=== PATIENT | male | born 1975 | race American Indian/Alaskan Native ===

== ENCOUNTER 2017-02-02 15:13 | Emergency (ER) | payer MEDICAID ==
[2017-02-02 15:18] VITALS: TEMP 98; O2SAT 98; BMI 27.4
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
[2017-02-02 16:52] VITALS: BP 154/102; PULSE 79; RESP 18
== END 2017-02-02 18:20 | disposition home or self-care (01) ==
LOC: ED 15:13
DX: Z76.0 Encounter for issue of repeat prescription (principal); I10 Essential (primary) hypertension; G40.909 Epilepsy, unspecified, not intractable, without status epilepticus; Z72.0 Tobacco use

== ENCOUNTER 2017-04-01 08:06 | Inpatient (IN) | payer MEDICAID ==
[2017-04-01 08:07] VITALS: BMI 27.4
[2017-04-01 08:30] VITALS: O2SAT 98
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
--- NOTE | 2017-04-01 10:53 | PCM.BM ---
<Raphael Márquez - Last Filed: 04/01/17 10:54> Treatment Plan Problems - Problems identified on initial assessmt thought process alteration Date Initiated: 04/01/17 Time Initiated: 10:50 Assessment reference: NA Status: Active meds nonadherence Date Initiated: 04/01/17 Time Initiated: 10:51 Assessment reference: NA Status: Active suicidal ideation Date Initiated: 04/01/17 Time Initiated: 10:52 Assessment reference: NA Status: Active Treatment assets and liabiliti Patient Assests: adapts well, self-reliant, negotiates basic needs, other Patient Liabilities: live alone, poor support system, relationship conflicts, substance abuse, medical problems, imparied memory - Milieu Protocol Maintain good personal hygiene: daily Encourage regular showers, daily Remind patient to perform daily oral care, daily Assist patient to perform ADL's Maintain personal safety: daily Educate patient to report safety concerns to staff, daily Monitor environment for contraband/sharps Medication safety: Monitor for expected outcome, potential side effects: daily, Assess barriers to learning: daily, Assess readiness for medication education: daily Discharge/Continuing Care - Education Needs Education Needs: Family Medication, Family Diagnosis/Disease Process, Family Coping Skills, Family Anger Management skills, Family Placement options, Family Activities of Daily Living, Family Uses of Medical Equipment, Family Health Practices/Safety, Family Personal Hygiene/Grooming, Family Aftercare Safety Plan - Discharge Discharge Criteria: Free of Suicidal thoughts, Free of Homicidal thoughts, Free of agitation, Normal sleep pattern, Ability to care for self, No longer exhibiting s/s of withdrawal Discharge to:: Home <Melissa Rodriguez - Last Filed: 04/01/17 15:04> - Diagnosis (1) TBI (traumatic brain injury) Status: Acute Interventions: 04/01/17 15:05 Pt will be seen by medical team as needed Medications will be confirmed and resumed Additional consultation by specialists as needed Lab work as needed (CBC, CMP, TSH, free T4, UA, Urine test for females as needed) CXR as needed EKG Physical therapy valuation as needed (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 Status: Acute Interventions: 04/01/17 15:06 Psychoeducation Psychopharmacology/adjustment of medications as needed/ monitoring possible side effects Evaluate pt on daily basis Compliance with medications and follow up appointments Suicide and homicide risk assessment and prevention Relapse prevention Reduction of symptoms Improve functional status Family intervention As outpatient: cognitive behavioral therapy/interpersonal psychotherapy/ psychodynamic psychotherapy/problem-solving therapy (3) Schizoaffective disorder Status: Acute Interventions: 04/01/17 15:06 Psychoeducation/psychotherapy Psychopharmacology/adjustment of medications as needed/ monitoring possible side effects Evaluate pt on daily basis Compliance with medications and follow up appointments Long acting medication if pt is noncompliant with pill form Suicide and homicide risk assessment and prevention, coping strategies, safety plan Relapse prevention Reduction of symptoms Improve functional status Possible assertive community treatment Cognitive behavioral therapy Family intervention Possible social skill training as outpatient <Adrianne Alston Y - Last Filed: 04/01/17 17:35> Family Contact Family involvement: Family/SO is involved - Goals for Treatment Patient goals for treatment: "I don't know, I just got here!" Discharge/Continuing Care - Education Needs Education Needs: Patient Medication, Patient Diagnosis/Disease Process, Patient Coping Skills, Patient Anger Management skills, Patient Placement options, Patient Community resources, Patient Health Practices/Safety, Patient Personal Hygiene/Grooming, Patient Aftercare Safety Plan - Discharge Discharge Criteria: Tolerates medication w/o severe side effects, Free of Suicidal thoughts, Free of paranoid thoughts, Free of agitation, Normal sleep pattern, No longer exhibiting s/s of withdrawal Discharge to:: [facility]
[2017-04-01 11:44] LABS: BASO # 0.01 K/mm3 (0.0-2.0); BASO % 0.3 % (0.0-3.0); EOS # 0.4 (0.0-0.7); EOS % 11.2 % (1.5-5.0); GRAN # 1.85 (1.4-6.5); GRAN % 48.3 % (50.0-68.0); HEMOGLOBIN 12.4 gm/dL (14.0-18.0); LYMPH # 1.1 (1.2-3.4); MEAN CORPUSCULAR HEMOGLOBIN 28.8 pg (25.0-35.0); MEAN CORPUSCULAR HGB CONC 33.2 g/dl (31.0-37.0); MONO # 0.4 (0.1-0.6); MONO % 11.2 % (1.0-6.0); PLATELET COUNT 187 10^3/uL (120.0-450.0); RED CELL DISTRIBUTION WIDTH 12.8 % (11.5-14.5); WHITE BLOOD COUNT 3.8 10^3/ul (4.5-11.0)
[2017-04-01 11:54] LABS: ALB/GLOB RATIO 1.2 (1.1-1.8); ALT/SGPT 30 U/L (7-56); AST/SGOT 23 U/L (15-59); BLOOD UREA NITROGEN 8 mg/dL (7-21); GFR AFRICAN-AMERICAN > 60; GFR NON-AFRICAN AMERICAN > 60; HDL CHOLESTEROL 71 mg/dL (29-60)
[2017-04-01 12:05] LABS: LDL CHOLESTEROL 84 mg/dL (0-129)
[2017-04-01 12:10] LABS: FREE T4 1.16 ng/dL (0.78-2.19)
--- NOTE | 2017-04-01 16:04 | PCM.PSYCH ---
Initial Psychiatric Evaluation - Initial Psychiatric Evaluation Type of Admission: Voluntary Legal Status: Capacity (Patient has capacity to sign consent for treatment) Chief Complaint (in patient's own words): "hat do you mean how do I feel? I just came here, I just need to have a good night sleep, I don't feel good, he just woke me up" Patient's Reaction to Hospitalization: patient was admitted for evaluation of depressive symptoms, possible suicidal ideations, with a plan to cut himself History of Present Illness and Precipitating Events: shortly patient is a 41 year old male, with history of schizophrenia spectrum disorder, dramatic brain injury, polysubstance abuse and dependence, chronic noncompliance with the medications and follow-up appointments, patient is currently homeless, was transferred from the crisis hospital for evaluation and stabilization of depressive symptoms, suicidal ideation with a plan to cut himself. Patient has poor impulse control, multiple emergency room and inpatient psychiatric as well as detox units admission in the past. This commercial loan underwriter attempted to speak to the patient at the treatment team room, patient presented to have marginal personal hygiene, fare ADLs, angry and loud, flat affect, patient has cognitive limitations due to dramatic brain injury, there is no option to have meaningful conversation. Patient had severe thought blocking, concrete thought process, as well as poverty of speech and poverty of thoughts, poor impulse control. when this commercial loan underwriter asked what brought pt to the hospital pt said: "Peng?", when was asked how does he feel: pt said: "hat do you mean how do I feel? I just came here, I just need to have a good night sleep, I don't feel good, he just woke me up", pt is disorganized and internally preoccupied throughout the interview. He remained a poor historian. He was superficially cooperative but guarded about the details. as per [facility] assessment: 04/01/17: "feel like cutting again." "feels depressed," and "I wouldn't have come here if I didnt need it, I need to see the psychiatrist." Pt reports drinking 1 beer earlier, denies drinking daily and using 1 bag of heroin intranasally [employer]OL[employer] OPER[employer]. When asked if using daily, pt states "absolutely not, then I'd be a problem!" collaterals from [facility] Call made to pt's mother who is listed as his emergency contact, pt mother lives in [place] and states "there's not much I would be able to tell you that he hasn't." Nakia states that pt has a TBI, and is sometimes forgetful , and goes through bouts of depression. She states her son is "living a hard life, and doing drugs sometimes and such, so he probably is depressed and needs to get some help to get his head straight." Nakia states she is unsure if pt is currently linked with psychiatric care in [place], and is unable to provide the cousin's name/phone number who pt claims to live with. When asked about history of suicide attempts, she states "look at his arms, you can see there's cuts all over." Pt mother unable to provide additoinal information on her son, but states if any PES worker needs to contact her for anything else, they are welcome to do so. pt was not able to answer if he hears voices or seeing things, but appeared to be internally preoccupied. pt has h/o command type hallucinations as per [facility] pt was admitted to [facility] less than a month go with the plan to go to [place], pt started to scream when was asked about it. pt was discharged on the following meds: amLODIPine [Norvasc] 5 mg PO DAILY Benztropine [Cogentin] 1 mg PO BID carBAMazepine [Tegretol] 400 mg PO Q12 fluPHENAZine [Prolixin] 10 mg PO BID Furosemide [Lasix] 20 mg PO DAILY Lisinopril [Zestril] 20 mg PO DAILY Phenobarbital [PHENobarbital Tab] 64.8 mg PO BID Sertraline [Zoloft] 50 mg PO DAILY traZODone [Desyrel] [facility] PO [facility] History of seizures, HTN patient denied smoking, 04/01/17 11:30 04/01/17 11:30 Lab Results 04/01/17 11:30: Free T4 1.16, TSH 3rd Generation 0.43 L 04/01/17 11:30: Sodium 142, Potassium 4.2, Chloride 105, Carbon Dioxide 26, Anion Gap 15, BUN 8, Creatinine 0.9, Est GFR ( Amer) > 60, Est GFR (Non- Af Amer) > 60, Random Glucose 94, Calcium 9.0, Total Bilirubin 0.4, AST 23, ALT 30, Alkaline Phosphatase 116, Total Protein 7.2, Albumin 4.0, Globulin 3.3, Albumin/Globulin Ratio 1.2, Triglycerides 86, Cholesterol 169, LDL Cholesterol Direct 84, HDL Cholesterol 71 H 04/01/17 11:30: WBC 3.8 L D, RBC 4.30, Hgb 12.4 L, Hct 37.4 L, MCV 87.0, MCH 28.8, MCHC 33.2, RDW 12.8, Plt Count 187, MPV 11.0, Gran % 48.3 L, Lymph % (Auto ) 29.0, [place] % (Auto) 11.2 H, Eos % (Auto) 11.2 H, Baso % (Auto) 0.3, Gran # 1.85, Lymph # 1.1 L, [place] # 0.4, Eos # 0.4, Baso # 0.01 Vital Signs Temp Pulse Resp BP Pulse Ox 04/01/17 11:30 146/105 H 04/01/17 10:22 16 04/01/17 08:28 97.7 F 55 L 15 148/98 H 98 UDS positive for opioids and barbiturates 04/01/17 [facility] Current Medications: confirmed by [facility] Past Psychiatric History - Past Psychiatric History Previous Treatment History: Inpatient Prior Professional Help: see HPI Prior Psychiatric Treatment: see HPI At what hospital: see HPI Duration: see HPI Nature of Treatment: see HPI Explanation of prior treatment: see HPI History of Abuse: see HPI History of ETOH/Drug Use: see HPI History of Family Illness: see HPI Pertinent Medical Hx (Current Medical&Sleep Prob, Allergies): Allergies Allergy/AdvReac Type Severity Reaction Status Date / Time haloperidol [From Haldol] AdvReac NAUSEA Verified 04/01/17 09:29 Unobtainable 04/01/17 Review of Systems - Review of Systems Systems not reviewed;Unavailable: Acuity of Condition - EENT Eyes: As Per HPI Ears: As Per HPI Nose/Mouth/Throat: As Per HPI - Cardiovascular Cardiovascular: As Per HPI - Respiratory Respiratory: As Per HPI - Gastrointestinal Gastrointestinal: As Per HPI - Genitourinary Genitourinary: As Per HPI - Reproductive: Male Reproductive:Male: As Per HPI - Musculoskeletal Musculoskeletal: As Par HPI - Integumentary Integumentary: As Per HPI - Neurological Neurological: As Per HPI - Psychiatric Psychiatric: As Per HPI - Endocrine Endocrine: As Per HPI - Hematologic/Lymphatic Hematologic: As Per HPI Mental Status Examination - Personal Presentation Personal Presentation: Looks older than stated age - Affect Affect: Flat - Motor Activity Motor Activity: Psychomotor Agitation, Psychomotor Retardation - Reliability in Providing Information Reliability in Providing Information: Poor, due to alteration in thoughts, Poor , due to cognitve impairment - Speech Speech: Disorganized, Other (poverty of speech) - Mood Mood: Depressed - Formal Thought Process Formal Thought Process: Hallucinations, Delusions, Paranoia - Hallucinations/Delusions Hallucinations: Auditory Delusions: Persecution - Obsessions/Compulsions Obsessions: None Compulsions: None - Cognitive Functions Orientation: Person Sensorium: Alert Attention/Concentration: Easily distracted Abstract Thinking: [place] Estimate of Intelligence: Below average Judgement: Intact, as evidence by: Insight regarding need for hospitalization - Risk Risk: Self-mutilation, Diminished functioning - Strength & Assets Inventory Strength & Assets Inventory: Cooperative - Limitations Limitations: Other (multiple medical issues, chronic noncompliance with meds and f/u appt) DSM 5 DX - DSM 5 DSM 5 Diagnosis: Schizoaffective disorder mixed type Opioid use disorder moderate TBI - Recommended/Plan of Treatment Treatment Recommendations and Plan of Treatment: milieu, structure, supportive therapy As per previous record patient supposed to be on the following medication: amLODIPine [Norvasc] 5 mg PO DAILY will be continued Benztropine [Cogentin] 1 mg PO BID will be continued carBAMazepine [Tegretol] 400 mg PO Q12 will be continued fluPHENAZine [Prolixin] 10 mg PO BID will be continued Furosemide [Lasix] 20 mg PO DAILY will be continued Lisinopril [Zestril] 20 mg PO DAILY will be continued Phenobarbital [PHENobarbital Tab] 64.8 mg PO BID will be continued Sertraline [Zoloft] 50 mg PO DAILY will be continued traZODone [Desyrel] 50 mg PO HS will be continued we'll give when necessary medications Medical consultation We'll consider neurology consult We'll monitor closely sw evaluation Projected ELOS: 7 days Prognosis: guarded Discharge Plan and Discharge Criteria: Pt will be not depressed or manic, will be more hopeful, will be not psychotic or anxious, will be not having thoughts of harming self or others, will be tolerating medications well, will not have major side effects, will be able to function, will not pose threat to self or others. - Smoking Cessation Smoking Cessation Initiated: No Reason for not providing: patient denied smoking
[2017-04-02 07:51] VITALS: RESP 20; TEMP 97.9
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
--- NOTE | 2017-04-02 09:12 | PCM.PYCHPN ---
Psychiatric Progress Note - Psychiatric Progress Note Patient seen today, length of contact: 25 min Patient Chief Complaint: "feeling better" Problems Identified/Issues Discussed: I reviewed assessment and recent notes. I met with patient bedside. He is superficially cooperative however appears to be irritable and preoccupied. Patient reports that he is feeling better and he denies any depression or hallucinations. Reported that he slept well and denies any side effects discomfort or pain. His thought process is disorganized and forgetful. He can be repetitive with his questioning. Appears paranoid and unpredictable though he does not appear to be actively responding to internal stimuli. Staff notes indicate the patient has been confused, suspicious and irritable on the unit. His insight and judgment are poor. Diagnostic Results: Schizoaffective disorder mixed type Opioid use disorder moderate TBI Medication Change: No Medical Record Reviewed: Yes Mental Status Examination - Cognitive Function Orientation: Person Attention: Poor Concentration: Poor Association: Loose Fund of Knowledge: Poor - Mood Mood: Depressed ("feeling better") - Affect Affect: Flat - Formal Thought Process Formal Thought Process: Hallucinations, Delusions, Paranoia, Loosening of associations - Suicidal Ideation Suicidal Ideation: No - Homicidal Ideation Homicidal Ideation: No Goal/Treatment Plan - Goal/Treatment Plan Progress Toward Problem(s) and Goals/Treatment Plan: * c/w current tx and plan * Ordered tegretrol level * Patient put in a 48 hour letter this morning; I requested [facility] screening today * Appreciate f/u by Dr. Joshi on 04/02/17. * No new overnight labs * Vitals reviewed and noted below: Selected Entries 04/01/17 04/01/17 04/01/17 08:28 10:22 11:30 Temperature 97.7 F Pulse Rate 55 L Respiratory 15 16 Rate Blood Pressure 148/98 H 146/105 H O2 Sat by Pulse 98 Oximetry Oxygen Delivery Room Air Method
[2017-04-02 16:59] VITALS: BP 148/91; PULSE 81
[2017-04-03] MEDS ORDERED: Pantoprazole 40 mg EC Tab PO SCH (06:00)
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
== END 2017-04-02 20:37 | disposition left against medical advice (07) | DRG 430 ==
LOC: ED 08:06 → ERH 08:32 → PSYC 08:57
PROVIDERS: ADMIT Psychiatry & Neurology Psychiatry; ATTEND Psychiatry & Neurology Psychiatry
PROC: GZ3ZZZZ Medication Management (ICD-10-PCS; principal; 2017-04-01)
DX: F25.0 Schizoaffective disorder, bipolar type (principal); F11.20 Opioid dependence, uncomplicated; R45.851 Suicidal ideations; B19.20 Unspecified viral hepatitis C without hepatic coma; I10 Essential (primary) hypertension; G40.909 Epilepsy, unspecified, not intractable, without status epilepticus; F41.9 Anxiety disorder, unspecified; Z91.14 Patient's other noncompliance with medication regimen; Z87.820 Personal history of traumatic brain injury; Z59.0 Homelessness; Z87.891 Personal history of nicotine dependence

== ENCOUNTER 2017-04-05 20:48 | Inpatient (IN) | payer MEDICAID ==
[2017-04-05 20:57] VITALS: BMI 28.7
[2017-04-05] MEDS ORDERED: Sodium Chloride 0.9% 1,000 ML IV STA ×2 (21:39→23:36)
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
[2017-04-05 22:49] LABS: BASO # 0.02 K/mm3 (0.0-2.0); BASO % 0.2 % (0.0-3.0); EOS # 0.4 (0.0-0.7); EOS % 3.4 % (1.5-5.0); GRAN % 73.4 % (50.0-68.0); HEMOGLOBIN 11.5 g/dL (14.0-18.0); LYMPH # 1.6 (1.2-3.4); LYMPH % 15.1 % (22.0-35.0); MEAN CELL VOLUME 88.3 fl (80.0-105.0); MEAN CORPUSCULAR HEMOGLOBIN 29.8 pg (25.0-35.0); MEAN CORPUSCULAR HGB CONC 33.7 g/dl (31.0-37.0); MEAN PLATELET VOLUME 11.1 fl (7.0-11.0); MONO # 0.8 (0.1-0.6); MONO % 7.9 % (1.0-6.0); PLATELET COUNT 158 10^3/uL (120.0-450.0); RBC 3.86 10^6/uL (3.5-6.1); WHITE BLOOD COUNT 10.6 10^3/ul (4.5-11.0)
[2017-04-05 23:01] LABS: ALB/GLOB RATIO 1.4 (1.1-1.8); ALBUMIN 4.1 g/dL (3.0-4.8); ALT/SGPT 85 U/L (7-56); AST/SGOT 191 U/L (15-59); BLOOD UREA NITROGEN 13 mg/dL (7-21); CALCIUM 8.8 mg/dL (8.4-10.5); GFR AFRICAN-AMERICAN > 60; GFR NON-AFRICAN AMERICAN > 60
[2017-04-05 23:23] LABS: CK MB% 0.2 % (2.5-3.0); CK-MB 24.4 ng/mL (0.0-3.6)
--- NOTE | 2017-04-05 23:27 | ED PDOC ---
Physical Exam Vital Signs Temp Pulse Resp BP Pulse Ox 04/05/17 22:11 98.6 F 83 16 99/52 L 96 Temperature: Afebrile Blood Pressure: Hypotensive Pulse: Regular Respiratory Rate: Normal Appearance: Positive for: Well-Appearing, Non-Toxic, Comfortable Pain Distress: None Mental Status: Positive for: Alert and Oriented X 3 Medical Decision Making ED Course and Treatment: 04/05/17 23:00 Patient signed out to me by Dr. Mendez. Patient has a past medical history of Schizophrenia, who presents to the Emergency department complaining of substance abuse and depression. Patient requested psychiatric evaluation and admits to heroin drug use. Currently pending labs and sobriety. 04/06/17 00:30 Pt. will require admission for further medical management of Rhabdomyolysis. Case discussed with Dr. Thayer and medical research associate both to ED to evaluate/admit pt. - Lab Interpretations Lab Results: 04/05/17 22:30 04/05/17 22:30 Lab Results 04/05/17 22:30: Alcohol, Quantitative 27 H 04/05/17 22:30: Sodium 140, Potassium 4.1, Chloride 104, Carbon Dioxide 23, Anion Gap 17, BUN 13, Creatinine 0.9, Est GFR ( Amer) > 60, Est GFR (Non- Af Amer) > 60, Random Glucose 91, Calcium 8.8, Total Bilirubin 0.3, AST 191 H, ALT 85 H, Alkaline Phosphatase 99, Total Creatine Kinase 06351 H, CK-MB (CK-2) 24.4 H, CK-MB (CK-2) % 0.2 L, Total Protein 7.1, Albumin 4.1, Globulin 3.0, Albumin/Globulin Ratio 1.4 04/05/17 22:30: WBC 10.6 D, RBC 3.86, Hgb 11.5 L, Hct 34.1 L, MCV 88.3, MCH 29.8, MCHC 33.7, RDW 13.0, Plt Count 158, MPV 11.1 H, Gran % 73.4 H, Lymph % ( Auto) 15.1 L, Gilchrist % (Auto) 7.9 H, Eos % (Auto) 3.4, Baso % (Auto) 0.2, Gran # 7.80 H, Lymph # 1.6, Gilchrist # 0.8 H, Eos # 0.4, Baso # 0.02 04/05/17 21:12: POC Glucose (mg/dL) 64 L I have reviewed the lab results: Yes - RAD Interpretation Radiology Orders: 04/05/17 21:39 CHEST PORTABLE [RAD] Stat - Medication Orders Current Medication Orders: Sodium Chloride (Sodium Chloride 0.9%) 1,000 mls @ 999 mls/hr IV .Q1H1M STA Stop: 04/06/17 00:36 Discontinued Medications Dextrose (Dextrose 50% Inj) 50 ml IVP ONCE ONE Stop: 04/05/17 23:38 Last Admin: 04/06/17 00:05 Dose: 50 ml Sodium Chloride (Sodium Chloride 0.9%) 1,000 mls @ 999 mls/hr IV .Q1H1M STA Stop: 04/05/17 22:39 Last Admin: 04/06/17 00:01 Dose: 999 mls/hr - Scribe Statement The provider has reviewed the documentation as recorded by the Scribe 04/05/2017 Devika Alcaraz Provider Scribe Attestation: All medical record entries made by the Scribe were at my direction and personally dictated by me. I have reviewed the chart and agree that the record accurately reflects my personal performance of the history, physical exam, medical decision making, and the department course for this patient. I have also personally directed, reviewed, and agree with the discharge instructions and disposition. Disposition/Present on Arrival - Present on Arrival Any Indicators Present on Arrival: No History of DVT/PE: No History of Uncontrolled Diabetes: No Urinary Catheter: No History of Decub. Ulcer: No History Surgical Site Infection Following: None - Disposition Have Diagnosis and Disposition been Completed?: Yes Diagnosis: Substance abuse, Rhabdomyolysis Disposition: HOSPITALIZED Disposition Time: 00:21 Patient Plan: Admission Patient Problems: Current Active Problems Problem Status Onset Rhabdomyolysis Acute Substance abuse Acute Condition: FAIR
[2017-04-05] MEDS ORDERED: Dextrose 50% SYRINGE Inj (50 ml) IVP ONE (23:37)
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
[2017-04-06] MEDS ORDERED: Multivitamin (MVI) 10 ML, Thiamine 100 MG, Folic Acid 1 MG in Sodium Chloride 0.9% 1,00... IV ONE (01:38)
[2017-04-06] MEDS: Sodium Chloride 0.9% 1,000 ML IV SCH ×3 (02:14→22:41)
[2017-04-06 03:37] LABS: URINE BILIRUBIN NEGATIVE (NEGATIVE); URINE BLOOD TRACE-LYSED (NEGATIVE); URINE GLUCOSE (UA) 100 mg/dL (NEGATIVE); URINE LEUKOCYTE ESTERASE SMALL Leu/uL (NEGATIVE); URINE NITRATE NEGATIVE (NEGATIVE); URINE PROTEIN TRACE mg/dL (<30 mg/dL); URINE UROBILINOGEN 0.2 E.U./dL (<1 E.U./dL)
[2017-04-06 03:38] LABS: URINE APPEARANCE SL CLOUDY (CLEAR); URINE COLOR YELLOW (YELLOW)
[2017-04-06 03:58] LABS: BARBITURATES, UR POSITIVE (NEGATIVE); BENZODIAZEPINES, UR NEGATIVE (NEGATIVE); OPIATES, UR POSITIVE (NEGATIVE); PHENCYCLIDINE, UR NEGATIVE (NEGATIVE)
[2017-04-06 04:15] LABS: URINE BACTERIA FEW (NEG); URINE RBC 0 - 2 /hpf (0-2)
[2017-04-06 07:24] LABS: BLOOD UREA NITROGEN 9 mg/dL (7-21); GFR AFRICAN-AMERICAN > 60; GFR NON-AFRICAN AMERICAN > 60
[2017-04-06 07:25] LABS: CALCIUM 8.4 mg/dL (8.4-10.5); MAGNESIUM 1.7 mg/dL (1.7-2.2)
[2017-04-06 08:30] LABS: CK MB% 0.1 % (2.5-3.0); CK-MB 17.3 ng/mL (0.0-3.6)
--- NOTE | 2017-04-06 08:55 | RAD ---
HISTORY: psych COMPARISON: 12/24/2014 FINDINGS: LUNGS: No active pulmonary disease. PLEURA: No significant pleural effusion identified, no pneumothorax apparent. CARDIOVASCULAR: Normal. OSSEOUS STRUCTURES: No significant abnormalities. VISUALIZED UPPER ABDOMEN: Normal. OTHER FINDINGS: None. IMPRESSION: No active disease.
--- NOTE | 2017-04-06 09:56 | CP.PCM.PN ---
Subjective - Date & Time of Evaluation Date of Evaluation: 04/06/17 Time of Evaluation: 09:55 - Subjective Subjective: pt needs blood drawn. Objective - Vital Signs/Intake and Output Vital Signs (last 24 hours): Temp Pulse Resp BP Pulse Ox 98.6 F 76 18 130/83 100 04/05/17 22:11 04/06/17 09:40 04/06/17 09:40 04/06/17 09:40 04/06/17 09:40 - Medications Medications: Current Medications Clonidine HCl (Catapres) 0.1 mg PO BID PRN PRN Reason: Systolic Blood Pressure Sodium Chloride (Sodium Chloride 0.9%) 1,000 mls @ 200 mls/hr IV .Q5H JANINE Last Admin: 04/06/17 08:30 Dose: 200 mls/hr Lorazepam (Ativan) 1 mg IVP Q3H PRN; Protocol PRN Reason: Anxiety Last Admin: 04/06/17 07:19 Dose: 1 mg Pantoprazole Sodium (Protonix Inj) 40 mg IVP DAILY JANINE Last Admin: 04/06/17 09:26 Dose: 40 mg - Labs Labs: 04/06/17 06:50 Assessment and Plan - Assessment and Plan (Free Text) Assessment: blood drawn for labs from rt arterial.
[2017-04-06 10:03] LABS: BASO # 0.01 K/mm3 (0.0-2.0); BASO % 0.1 % (0.0-3.0); EOS # 0.5 (0.0-0.7); EOS % 5.7 % (1.5-5.0); GRAN # 6.08 (1.4-6.5); GRAN % 71.3 % (50.0-68.0); HEMOGLOBIN 11.4 g/dL (14.0-18.0); LYMPH # 1.4 (1.2-3.4); LYMPH % 16.8 % (22.0-35.0); MEAN CORPUSCULAR HEMOGLOBIN 29.1 pg (25.0-35.0); MEAN CORPUSCULAR HGB CONC 33.4 g/dl (31.0-37.0); MEAN PLATELET VOLUME 10.8 fl (7.0-11.0); MONO # 0.5 (0.1-0.6); MONO % 6.1 % (1.0-6.0); PLATELET COUNT 146 10^3/uL (120.0-450.0); RBC 3.92 10^6/uL (3.5-6.1); RED CELL DISTRIBUTION WIDTH 12.8 % (11.5-14.5); WHITE BLOOD COUNT 8.5 10^3/ul (4.5-11.0)
[2017-04-06] MEDS ORDERED: Pneumococcal 23-Valent Vaccine IM ONE (14:20)
[2017-04-06 16:53] VITALS: O2SAT 99
--- NOTE | 2017-04-06 18:11 | CP.PCM.PN ---
Subjective - Date & Time of Evaluation Date of Evaluation: 04/06/17 Time of Evaluation: 18:10 - Subjective Subjective: pt needs angiocath insertion. Objective - Vital Signs/Intake and Output Vital Signs (last 24 hours): Temp Pulse Resp BP Pulse Ox 97 F L 83 16 135/85 99 04/06/17 17:29 04/06/17 17:29 04/06/17 17:29 04/06/17 17:29 04/06/17 14:20 Intake and Output: 04/06/17 04/06/17 06:59 18:59 Intake Total 240 Output Total 550 Balance -310 - Medications Medications: Current Medications Carbamazepine (Tegretol) 400 mg PO BID JANINE PRN Reason: Protocol Chlordiazepoxide (Librium) 25 mg PO Q8 JANINE PRN Reason: Protocol Last Admin: 04/06/17 15:36 Dose: 25 mg Clonidine HCl (Catapres) 0.1 mg PO BID PRN PRN Reason: Systolic Blood Pressure Fluphenazine HCl (Prolixin) 10 mg PO BID JANINE PRN Reason: Protocol Sodium Chloride (Sodium Chloride 0.9%) 1,000 mls @ 200 mls/hr IV .Q5H JANINE Last Admin: 04/06/17 08:30 Dose: 200 mls/hr Ibuprofen (Motrin Tab) 600 mg PO Q6H PRN PRN Reason: Pain, Mild (1-3) Last Admin: 04/06/17 15:36 Dose: 600 mg Lisinopril (Zestril) 10 mg PO DAILY [facility] Lorazepam (Ativan) 1 mg IVP Q3H PRN; Protocol PRN Reason: Anxiety Last Admin: 04/06/17 07:19 Dose: 1 mg Pantoprazole Sodium (Protonix Inj) 40 mg IVP DAILY JANINE Last Admin: 04/06/17 09:26 Dose: 40 mg Phenobarbital (Phenobarbital Tab) 97.2 mg PO DAILY JANINE Trazodone HCl (Desyrel) 50 mg PO HS JANINE Ziprasidone (Geodon Inj) 20 mg IM Q8H PRN; Protocol PRN Reason: severe agitation - Labs Labs: 04/06/17 09:56 04/06/17 06:50 Assessment and Plan - Assessment and Plan (Free Text) Assessment: 20 guage angiocath inserted in rt ankle.
--- NOTE | 2017-04-07 01:06 | CARD ---
APPROVED REPORT EKG Measurement Heart [id number] <Conclusion> Normal sinus rhythm Nonspecific T wave abnormality Abnormal ECG
[2017-04-07 01:29] VITALS: BP 122/74; RESP 20; TEMP 97
[2017-04-07 02:29] VITALS: PULSE 62
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
--- NOTE | 2017-04-07 08:01 | CP.PCM.DIS ---
<Jessica Marquez - Last Filed: 04/07/17 16:39> Provider - Provider Date of Admission: 04/06/17 00:21 Attending physician: Hayes Mendoza MD Consults: Psychiatry Time Spent in preparation of Discharge (in minutes): 30 Hospital Course - Lab Results Lab Results: Most Recent Lab Values WBC 8.5 10^3/ul (4.5-11.0) 04/06/17 09:56 RBC 3.92 10^6/uL (3.5-6.1) 04/06/17 09:56 Hgb 11.4 g/dL (14.0-18.0) L 04/06/17 09:56 Hct 34.1 % (42.0-52.0) L 04/06/17 09:56 MCV 87.0 fl (80.0-105.0) 04/06/17 09:56 MCH 29.1 pg (25.0-35.0) 04/06/17 09:56 MCHC 33.4 g/dl (31.0-37.0) 04/06/17 09:56 RDW 12.8 % (11.5-14.5) 04/06/17 09:56 Plt Count 146 10^3/uL (120.0-450.0) 04/06/17 09:56 MPV 10.8 fl (7.0-11.0) 04/06/17 09:56 Gran % 71.3 % (50.0-68.0) H 04/06/17 09:56 Lymph % (Auto) 16.8 % (22.0-35.0) L 04/06/17 09:56 [place] % (Auto) 6.1 % (1.0-6.0) H 04/06/17 09:56 Eos % (Auto) 5.7 % (1.5-5.0) H 04/06/17 09:56 Baso % (Auto) 0.1 % (0.0-3.0) 04/06/17 09:56 Gran # 6.08 (1.4-6.5) 04/06/17 09:56 Lymph # 1.4 (1.2-3.4) 04/06/17 09:56 [place] # 0.5 (0.1-0.6) 04/06/17 09:56 Eos # 0.5 (0.0-0.7) 04/06/17 09:56 Baso # 0.01 K/mm3 (0.0-2.0) 04/06/17 09:56 Sodium 139 mmol/L (132-148) 04/06/17 06:50 Potassium 4.2 mmol/L (3.6-5.0) 04/06/17 06:50 Chloride 109 mmol/L (98-107) H 04/06/17 06:50 Carbon Dioxide 22 mmol/L (21-33) 04/06/17 06:50 Anion Gap 12 (10-20) 04/06/17 06:50 BUN 9 mg/dL (7-21) 04/06/17 06:50 Creatinine 0.7 mg/dL (0.5-1.4) 04/06/17 06:50 Est GFR ( Amer) > 60 04/06/17 06:50 Est GFR (Non-Af Amer) > 60 04/06/17 06:50 POC Glucose (mg/dL) 64 mg/dL (65-110) L 04/05/17 21:12 Random Glucose 69 mg/dL (70-110) L 04/06/17 06:50 Calcium 8.4 mg/dL (8.4-10.5) 04/06/17 06:50 Phosphorus 3.2 mg/dL (2.5-4.5) 04/06/17 06:50 Magnesium 1.7 mg/dL (1.7-2.2) 04/06/17 06:50 Total Bilirubin 0.3 mg/dL (0.2-1.3) 04/05/17 22:30 AST 191 U/L (15-59) H 04/05/17 22:30 ALT 85 U/L (7-56) H 04/05/17 22:30 Alkaline Phosphatase 99 U/L (38-133) 04/05/17 22:30 Total Creatine Kinase 78589 U/L (35-230) H 04/06/17 06:50 CK-MB (CK-2) 17.3 ng/mL (0.0-3.6) H 04/06/17 06:50 CK-MB (CK-2) % 0.1 % (2.5-3.0) L 04/06/17 06:50 Total Protein 7.1 g/dL (5.8-8.3) 04/05/17 22:30 Albumin 4.1 g/dL (3.0-4.8) 04/05/17 22:30 Globulin 3.0 gm/dL 04/05/17 22:30 Albumin/Globulin Ratio 1.4 (1.1-1.8) 04/05/17 22:30 Urine Color Yellow (YELLOW) 04/06/17 03:10 Urine Appearance Sl cloudy (CLEAR) 04/06/17 03:10 Urine pH 6.0 (4.7-8.0) 04/06/17 03:10 Ur Specific [place] 1.015 (1.005-1.035) 04/06/17 03:10 Urine Protein Trace mg/dL (<30 mg/dL) H 04/06/17 03:10 Urine Glucose (UA) 100 mg/dL (NEGATIVE) H 04/06/17 03:10 Urine Ketones Negative mg/dL (NEGATIVE) 04/06/17 03:10 Urine Blood Trace-lysed (NEGATIVE) H 04/06/17 03:10 Urine Nitrate Negative (NEGATIVE) 04/06/17 03:10 Urine Bilirubin Negative (NEGATIVE) 04/06/17 03:10 Urine Urobilinogen 0.2 E.U./dL (<1 E.U./dL) 04/06/17 03:10 Ur Leukocyte Esterase Small Neal/uL (NEGATIVE) H 04/06/17 03:10 Urine RBC 0 - 2 /hpf (0-2) 04/06/17 03:10 Urine WBC 1 - 3 /hpf (0-6) 04/06/17 03:10 Ur Epithelial Cells 1 - 3 /hpf (0-5) 04/06/17 03:10 Urine Bacteria Few (NEG) 04/06/17 03:10 Urine Opiates Screen Positive (NEGATIVE) H 04/06/17 03:10 Urine Methadone Screen Negative (NEGATIVE) 04/06/17 03:10 Ur Barbiturates Screen Positive (NEGATIVE) H 04/06/17 03:10 Ur Phencyclidine Scrn Negative (NEGATIVE) 04/06/17 03:10 Ur Amphetamines Screen Negative (NEGATIVE) 04/06/17 03:10 U Benzodiazepines Scrn Negative (NEGATIVE) 04/06/17 03:10 U Oth Cocaine Metabols Negative (NEGATIVE) 04/06/17 03:10 U Cannabinoids Screen Negative (NEGATIVE) 04/06/17 03:10 Alcohol, Quantitative 27 mg/dL (0-10) H 04/05/17 22:30 - Hospital Course Hospital Course: Mr. Louie is a 41 year old male with a past medical history significant for anxiety, depression, Bipolar I Disorder, Hepatitis C, and polysubstance abuse who presented to the ED by EMS after being found to have AMS on a park bench. Patient reports he has no recollection of this. Per chart review, patient was seen 04/01/17 at the Psych Unit of [facility] [place] and signed AMA on 04/02/17 with a diagnosis of schizoaffective disorder and opiate use disorder. He was then seen at the [facility] ED in the AM of 04/03/17 with back pain. He absconded before being discharged but presented later in the PM on the same day for coffee ground vomitus and rhabdomyolysis. [place] [address] [place] 04/04/2107 and this decreased to just over [id number] later that same day on NS at 150mls/hr. He also admitted to using two bags of heroin on 04/03/2017. He then signed out AMA on 04/04/2017. [place] [id number] [place] ED. ROS largely unobtainable due to altered mental status but patient reports "feeling fine" and "has no pain anywhere". Patient was admitted. Started on aggressive IV fluid hydration for rhabdomyolysis. UDS was positive for opiates and barbituates. Patient was also being treated alcohol withdrawal. Alcohol level on admission was 27. He was started on Librium taper, Ativan prn and banana bag. CIWA protocol, seizure, fall and aspiration precautions were in place. Given patients psych history, Psychiatry was consulted and was on the case. On HD#2 Patient wanted to sign out AMA. Patient was AAOx3. Patient was counseled on the importance of staying and continuing treatment, risks of not continuing treatment were also discussed , however patient insisted that he wanted to leave. All questions and concerns were addressed. Discharge Exam - Head Exam Head Exam: NORMAL INSPECTION, NORMOCEPHALIC - Eye Exam Eye Exam: Normal appearance Pupil Exam: NORMAL ACCOMODATION - ENT Exam ENT Exam: Mucous Membranes Moist - Neck Exam Neck exam: Full Rom - Respiratory Exam Respiratory Exam: Clear to PA & Lateral, NORMAL BREATHING PATTERN, UNREMARKABLE. absent: Rales, Rhonchi, Wheezes - Cardiovascular Exam Cardiovascular Exam: REGULAR RHYTHM, +S1, +S2 - GI/Abdominal Exam GI & Abdominal Exam: Normal Bowel Sounds, Soft. absent: Tenderness - Extremities Exam Extremities exam: normal inspection, pedal pulses present - Neurological Exam Neurological exam: Alert, CN II-XII Intact, Oriented x3 - Psychiatric Exam Psychiatric exam: Normal Affect, Normal Mood - Skin Skin Exam: Normal Color, Warm Discharge Plan - Follow Up Plan Condition: FAIR Disposition: AGAINST MEDICAL ADVICE <Reanna HOLGUIN,[facility] - Last Filed: 04/07/17 17:21> Provider - Provider Date of Admission: 04/06/17 00:21 Attending physician: Hayes Mendoza MD Hospital Course - Lab Results Lab Results: Most Recent Lab Values WBC 8.5 10^3/ul (4.5-11.0) 04/06/17 09:56 RBC 3.92 10^6/uL (3.5-6.1) 04/06/17 09:56 Hgb 11.4 g/dL (14.0-18.0) L 04/06/17 09:56 Hct 34.1 % (42.0-52.0) L 04/06/17 09:56 MCV 87.0 fl (80.0-105.0) 04/06/17 09:56 MCH 29.1 pg (25.0-35.0) 04/06/17 09:56 MCHC 33.4 g/dl (31.0-37.0) 04/06/17 09:56 RDW 12.8 % (11.5-14.5) 04/06/17 09:56 Plt Count 146 10^3/uL (120.0-450.0) 04/06/17 09:56 MPV 10.8 fl (7.0-11.0) 04/06/17 09:56 Gran % 71.3 % (50.0-68.0) H 04/06/17 09:56 Lymph % (Auto) 16.8 % (22.0-35.0) L 04/06/17 09:56 Camden % (Auto) 6.1 % (1.0-6.0) H 04/06/17 09:56 Eos % (Auto) 5.7 % (1.5-5.0) H 04/06/17 09:56 Baso % (Auto) 0.1 % (0.0-3.0) 04/06/17 09:56 Gran # 6.08 (1.4-6.5) 04/06/17 09:56 Lymph # 1.4 (1.2-3.4) 04/06/17 09:56 Camden # 0.5 (0.1-0.6) 04/06/17 09:56 Eos # 0.5 (0.0-0.7) 04/06/17 09:56 Baso # 0.01 K/mm3 (0.0-2.0) 04/06/17 09:56 Sodium 139 mmol/L (132-148) 04/06/17 06:50 Potassium 4.2 mmol/L (3.6-5.0) 04/06/17 06:50 Chloride 109 mmol/L (98-107) H 04/06/17 06:50 Carbon Dioxide 22 mmol/L (21-33) 04/06/17 06:50 Anion Gap 12 (10-20) 04/06/17 06:50 BUN 9 mg/dL (7-21) 04/06/17 06:50 Creatinine 0.7 mg/dL (0.5-1.4) 04/06/17 06:50 Est GFR ( Amer) > 60 04/06/17 06:50 Est GFR (Non-Af Amer) > 60 04/06/17 06:50 POC Glucose (mg/dL) 64 mg/dL (65-110) L 04/05/17 21:12 Random Glucose 69 mg/dL (70-110) L 04/06/17 06:50 Calcium 8.4 mg/dL (8.4-10.5) 04/06/17 06:50 Phosphorus 3.2 mg/dL (2.5-4.5) 04/06/17 06:50 Magnesium 1.7 mg/dL (1.7-2.2) 04/06/17 06:50 Total Bilirubin 0.3 mg/dL (0.2-1.3) 04/05/17 22:30 AST 191 U/L (15-59) H 04/05/17 22:30 ALT 85 U/L (7-56) H 04/05/17 22:30 Alkaline Phosphatase 99 U/L (38-133) 04/05/17 22:30 Total Creatine Kinase 84188 U/L (35-230) H 04/06/17 06:50 CK-MB (CK-2) 17.3 ng/mL (0.0-3.6) H 04/06/17 06:50 CK-MB (CK-2) % 0.1 % (2.5-3.0) L 04/06/17 06:50 Total Protein 7.1 g/dL (5.8-8.3) 04/05/17 22:30 Albumin 4.1 g/dL (3.0-4.8) 04/05/17 22:30 Globulin 3.0 gm/dL 04/05/17 22:30 Albumin/Globulin Ratio 1.4 (1.1-1.8) 04/05/17 22:30 Urine Color Yellow (YELLOW) 04/06/17 03:10 Urine Appearance Sl cloudy (CLEAR) 04/06/17 03:10 Urine pH 6.0 (4.7-8.0) 04/06/17 03:10 Ur Specific Chester 1.015 (1.005-1.035) 04/06/17 03:10 Urine Protein Trace mg/dL (<30 mg/dL) H 04/06/17 03:10 Urine Glucose (UA) 100 mg/dL (NEGATIVE) H 04/06/17 03:10 Urine Ketones Negative mg/dL (NEGATIVE) 04/06/17 03:10 Urine Blood Trace-lysed (NEGATIVE) H 04/06/17 03:10 Urine Nitrate Negative (NEGATIVE) 04/06/17 03:10 Urine Bilirubin Negative (NEGATIVE) 04/06/17 03:10 Urine Urobilinogen 0.2 E.U./dL (<1 E.U./dL) 04/06/17 03:10 Ur Leukocyte Esterase Small Neal/uL (NEGATIVE) H 04/06/17 03:10 Urine RBC 0 - 2 /hpf (0-2) 04/06/17 03:10 Urine WBC 1 - 3 /hpf (0-6) 04/06/17 03:10 Ur Epithelial Cells 1 - 3 /hpf (0-5) 04/06/17 03:10 Urine Bacteria Few (NEG) 04/06/17 03:10 Urine Opiates Screen Positive (NEGATIVE) H 04/06/17 03:10 Urine Methadone Screen Negative (NEGATIVE) 04/06/17 03:10 Ur Barbiturates Screen Positive (NEGATIVE) H 04/06/17 03:10 Ur Phencyclidine Scrn Negative (NEGATIVE) 04/06/17 03:10 Ur Amphetamines Screen Negative (NEGATIVE) 04/06/17 03:10 U Benzodiazepines Scrn Negative (NEGATIVE) 04/06/17 03:10 U Oth Cocaine Metabols Negative (NEGATIVE) 04/06/17 03:10 U Cannabinoids Screen Negative (NEGATIVE) 04/06/17 03:10 Alcohol, Quantitative 27 mg/dL (0-10) H 04/05/17 22:30 Attending/Attestation - Attestation I have personally seen and examined this patient.: Yes I have fully participated in the care of the patient.: Yes I have reviewed all pertinent clinical information, including history, physical exam and plan: Yes
== END 2017-04-07 06:07 | disposition left against medical advice (07) | DRG 248 ==
LOC: ED 20:48 → ERH 04-06 00:21 → 2RSO 04-06 11:54
PROVIDERS: ADMIT Internal Medicine; ATTEND Internal Medicine
DX: M62.82 Rhabdomyolysis (principal); F25.9 Schizoaffective disorder, unspecified; F10.239 Alcohol dependence with withdrawal, unspecified; F11.10 Opioid abuse, uncomplicated; B19.20 Unspecified viral hepatitis C without hepatic coma; F31.9 Bipolar disorder, unspecified; F41.9 Anxiety disorder, unspecified; Y90.1 Blood alcohol level of 20-39 mg/100 ml; Z87.891 Personal history of nicotine dependence; Z91.14 Patient's other noncompliance with medication regimen; Z87.820 Personal history of traumatic brain injury

== ENCOUNTER 2017-04-13 00:05 | Inpatient (IN) | payer MEDICAID ==
[2017-04-13 00:05] VITALS: BMI 28.7
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
[2017-04-13 01:14] LABS: URINE BILIRUBIN NEGATIVE (NEGATIVE); URINE BLOOD LARGE (NEGATIVE); URINE GLUCOSE (UA) NEGATIVE (NEGATIVE); URINE KETONE NEGATIVE (NEGATIVE); URINE LEUKOCYTE ESTERASE NEGATIVE Leu/uL (NEGATIVE); URINE PROTEIN 30 mg/dL (<30 mg/dL); URINE UROBILINOGEN 0.2 E.U./dL (<1 E.U./dL)
[2017-04-13 01:26] LABS: URINE APPEARANCE CLEAR (CLEAR); URINE COLOR YELLOW (YELLOW)
[2017-04-13 01:27] LABS: ADD MANUAL DIFF? NO
[2017-04-13 01:31] LABS: BASO # 0.02 K/mm3 (0.0-2.0); BASO % 0.3 % (0.0-3.0); EOS # 0.1 (0.0-0.7); EOS % 1.1 % (1.5-5.0); GRAN # 5.49 (1.4-6.5); GRAN % 69.2 % (50.0-68.0); HEMATOCRIT 37.7 % (42.0-52.0); LYMPH # 1.5 (1.2-3.4); LYMPH % 18.7 % (22.0-35.0); MEAN CELL VOLUME 86.1 fl (80.0-105.0); MEAN CORPUSCULAR HEMOGLOBIN 29.5 pg (25.0-35.0); MEAN CORPUSCULAR HGB CONC 34.2 g/dl (31.0-37.0); MEAN PLATELET VOLUME 9.9 fl (7.0-11.0); MONO # 0.9 (0.1-0.6); MONO % 10.7 % (1.0-6.0); PLATELET COUNT 315 10^3/uL (120.0-450.0); RED CELL DISTRIBUTION WIDTH 12.8 % (11.5-14.5); WHITE BLOOD COUNT 7.9 10^3/ul (4.5-11.0)
[2017-04-13 01:33] LABS: URINE EPITHELIAL CELLS 0 - 2 /hpf (0-5); URINE WBC 0 - 2 /hpf (0-6)
[2017-04-13 01:36] LABS: ALB/GLOB RATIO 1.3 (1.1-1.8); ALKALINE PHOSPHATASE 118 U/L (38-133); ALT/SGPT 97 U/L (7-56); AST/SGOT 244 U/L (15-59); BILIRUBIN,TOTAL 0.3 mg/dL (0.2-1.3); BLOOD UREA NITROGEN 10 mg/dL (7-21); CARBON DIOXIDE 27 mmol/L (21-33); CHLORIDE 104 mmol/L (95-110); GFR AFRICAN-AMERICAN > 60; GLUCOSE,RANDOM 149 mg/dL (70-110); POTASSIUM 3.6 mmol/L (3.6-5.0); SODIUM 143 mmol/L (132-148); TOTAL PROTEIN 7.3 g/dL (5.8-8.3)
[2017-04-13] MEDS: Sodium Chloride 0.9% 1,000 ML IV SCH ×2 (03:37→22:00)
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
--- NOTE | 2017-04-13 04:42 | CP.PCM.PN ---
Subjective - Date & Time of Evaluation Date of Evaluation: 04/13/17 Time of Evaluation: 04:34 - Subjective Subjective: Assessment * Admitted to medical floor for rhabdomylysis, unclear etiology but has h/o seizure disorder, not clinical signs of NMS, but may avoid antipsycotics and discuss with neurology as well * Clinically dehydrated * Malnutrition as noticed from low b12, vit d * Hospital hopping from 1 to another going on at least a month, possible homeless situation/poor social support * Depression as reason of presentation to the ER and recent hospitalization * Difficult IV assess due to Ex [place] * Poly substance abuse patient blames to depression Plan * IV hydration * Continue antidepressant meds * Pshych and neurology consult as cause of rhabdo unclear * Supplement b12 * Social service eval * Continue seizure meds, confirm dose and check levels * See orders for detail. Objective - Vital Signs/Intake and Output Vital Signs (last 24 hours): Temp Pulse Resp BP Pulse Ox 97.3 F L 62 18 132/67 97 04/13/17 00:25 04/13/17 01:28 04/13/17 01:28 04/13/17 01:28 04/13/17 01:28 - Medications Medications: Current Medications Sodium Chloride (Sodium Chloride 0.9%) 1,000 mls @ 200 mls/hr IV .Q5H JANINE Last Admin: 04/13/17 03:37 Dose: 200 mls/hr
--- NOTE | 2017-04-13 07:09 | RAD ---
HISTORY: pes COMPARISON: 04/05/2017 FINDINGS: LUNGS: Lung volumes low-normal. The infrahilar bronchovascular markings right greater than left are borderline prominent. No definitive consolidation seen. PLEURA: No significant pleural effusion identified, no pneumothorax apparent. CARDIOVASCULAR: Top-normal - low-normal lung volumes noted OSSEOUS STRUCTURES: No significant abnormalities. VISUALIZED UPPER ABDOMEN: Normal. OTHER FINDINGS: None. IMPRESSION: No gross active disease. Lung volumes low-normal
--- NOTE | 2017-04-13 09:51 | CARD ---
APPROVED REPORT EKG Measurement Heart [id number] <Conclusion> Normal sinus rhythm Nonspecific T wave abnormality
[2017-04-13] MEDS ORDERED: Gadodiamide 287 MG/ML VIAL (15ML) IV ONE (11:14)
--- NOTE | 2017-04-13 12:31 | RAD ---
PROCEDURE: Radiographs of the Lumbar Spine. HISTORY: back pain COMPARISON: No prior. FINDINGS: BONES: Lumbar lordotic straightening. No listhesis. No fracture. DISC SPACES: Unremarkable OTHER FINDINGS: AP spinal canal appear shallow L3-L4 and L5 levels. L4-5 and L5-S1 mild facet hypertrophic arthrosis probable Moderate stool retention IMPRESSION: No fracture or subluxation. Shallow AP lumbar spine suggested - short pedicle status/ spinal stenosis not excluded. Mild facet hypertrophic arthrosis Moderate stool retention
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
--- NOTE | 2017-04-13 13:28 | RAD ---
PROCEDURE: HISTORY: hip pain COMPARISON: None TECHNIQUE: AP view of the pelvis and applicable frog leg views obtained. FINDINGS: Asymmetrical osseous hypertrophy with coalescence subchondral cystic coalescence of the right femoral head and right acetabulum is suggested. There is right acetabular protrusio also suggested. Some of this hypertrophic changes bordering the right acetabular protrusio projects into the right hemipelvis and may be posttraumatic (chronic). An element of concomitant right femoral acetabular impingement perhaps acquired is noted. Partially visualized is a right femoral intramedullary byron. No left femoral or acetabular for pelvic fracture noted. A well corticated 1 x 2 mm ossification lateral to the left acetabular roof is noted left capsular ossification R conceivably tiny loose body is 1 consideration. A slightly high for an os acetabulum. Left hip joint space narrowing mainly superior and superolateral. Minimal left acetabular spurring present. IMPRESSION: No left hemipelvic or left hip fractures suggested. Left periacetabular ossification -possibly relating to capsular ossification calcification. This appears slightly more superior than typically seen for not as acetabulum the left femoral head neck superior concavity appears slightly blunted a much lesser degree of left femoral acetabular impingement is possible. Finding are much more pronounced on the right side given the hypertrophic osseous changes here
[2017-04-13] MEDS ORDERED: Potassium Chloride 40 mEq/30 ml LIQ UD PO ONE (13:35)
--- NOTE | 2017-04-13 13:48 | MRI ---
PROCEDURE: MR LUMBAR SPINE WITH AND WITHOUT CONTRAST HISTORY: back pain, hx heroin use COMPARISON: None available. TECHNIQUE: Multiecho multiplanar sequences were performed through the lumbar spine with and without the use of intravenous contrast. 15 cc of Omniscan FINDINGS: Normal lumbar lordosis. Vertebral body heights are preserved. Marrow signal unremarkable. Conus medullaris unremarkable at the level of T12 Paraspinal soft tissues are unremarkable. No abnormal enhancement. T12-L1: No disc herniation, spinal canal stenosis or neural foraminal narrowing. L1-2: No disc herniation, spinal canal stenosis or neural foraminal narrowing. L2-3: No disc herniation, spinal canal stenosis or neural foraminal narrowing. L3-4: No disc herniation, spinal canal stenosis or neural foraminal narrowing. L4-5: No disc herniation, spinal canal stenosis or neural foraminal narrowing. L5-S1: No disc herniation, spinal canal stenosis or neural foraminal narrowing. OTHER FINDINGS: None. IMPRESSION: Unremarkable pre and post contrast enhanced MRI of the lumbar spine.
[2017-04-14] MEDS: Sodium Chloride 0.9% 1,000 ML IV SCH ×2 (03:00→08:44)
[2017-04-14] MEDS: Pantoprazole 40 mg EC Tab PO SCH (06:16)
[2017-04-14] MEDS ORDERED: Oxycodone/Acetaminophen 5/325 mg Tab PO ONE (09:11)
[2017-04-14 11:31] LABS: ADD MANUAL DIFF? NO
[2017-04-14 11:42] LABS: BASO # 0.01 K/mm3 (0.0-2.0); BASO % 0.2 % (0.0-3.0); EOS # 0.3 (0.0-0.7); EOS % 4.8 % (1.5-5.0); GRAN # 3.35 (1.4-6.5); GRAN % 59.5 % (50.0-68.0); HEMATOCRIT 36.7 % (42.0-52.0); LYMPH # 1.5 (1.2-3.4); LYMPH % 26.6 % (22.0-35.0); MEAN CELL VOLUME 85.5 fl (80.0-105.0); MEAN CORPUSCULAR HEMOGLOBIN 28.7 pg (25.0-35.0); MEAN CORPUSCULAR HGB CONC 33.5 g/dl (31.0-37.0); MONO # 0.5 (0.1-0.6); MONO % 8.9 % (1.0-6.0); PLATELET COUNT 363 10^3/uL (120.0-450.0); RED CELL DISTRIBUTION WIDTH 12.8 % (11.5-14.5); WHITE BLOOD COUNT 5.6 10^3/ul (4.5-11.0)
[2017-04-14 11:48] LABS: ALB/GLOB RATIO 1.2 (1.1-1.8); ALKALINE PHOSPHATASE 106 U/L (38-133); ALT/SGPT 115 U/L (7-56); AST/SGOT 203 U/L (15-59); BILIRUBIN,TOTAL 0.2 mg/dL (0.2-1.3); BLOOD UREA NITROGEN 10 mg/dL (7-21); CARBON DIOXIDE 28 mmol/L (21-33); CHLORIDE 103 mmol/L (95-110); GFR AFRICAN-AMERICAN > 60; GLUCOSE,RANDOM 82 mg/dL (70-110); MAGNESIUM 1.7 mg/dL (1.7-2.2); PHOSPHOROUS 2.8 mg/dL (2.5-4.5); SODIUM 139 mmol/L (132-148); TOTAL PROTEIN 6.8 g/dL (5.8-8.3)
[2017-04-14] MEDS ORDERED: Morphine 2 mg/ml ISec SC ONE (13:21)
--- NOTE | 2017-04-14 14:38 | CP.PCM.PN ---
<Jessica Marquez - Last Filed: 04/14/17 14:52> Subjective - Date & Time of Evaluation Date of Evaluation: 04/14/17 Time of Evaluation: 07:40 - Subjective Subjective: Jessica Marquez DO, PGY-1, Internal Medicine, Hospitalist Service Patient seen and examined at bedside. Per nursing no acute events overnight. Patient reports still having pain hip pain, worse with movement. No other complaints at this time. Denies suicidal or homicidal ideation. Denies headache , dizziness, cp, sob, abdominal pain, urinary symptoms. Objective - Vital Signs/Intake and Output Vital Signs (last 24 hours): Temp Pulse Resp BP Pulse Ox 98.3 F 76 20 136/97 H 99 04/14/17 08:00 04/14/17 09:42 04/14/17 08:00 04/14/17 09:42 04/14/17 08:00 Intake and Output: 04/14/17 04/14/17 06:59 18:59 Intake Total 780 Output Total 1000 Balance -220 - Medications Medications: Current Medications Carbamazepine (Tegretol) 200 mg PO BID [facility] PRN Reason: Protocol Last Admin: 04/13/17 17:41 Dose: 200 mg Cyanocobalamin (Vitamin B12 1000 Mcg/Ml Inj) 1,000 mcg IM DAILY [facility] Stop: 04/19/17 10:01 Last Admin: 04/14/17 09:43 Dose: 1,000 mcg Folic Acid (Folic Acid) 1 mg PO DAILY [facility] Last Admin: 04/14/17 13:32 Dose: 1 mg Gabapentin (Neurontin) 300 mg PO BID [facility] PRN Reason: Protocol Last Admin: 04/14/17 09:42 Dose: 300 mg Sodium Chloride (Sodium Chloride 0.9%) 1,000 mls @ 200 mls/hr IV .Q5H [facility] Last Admin: 04/14/17 08:44 Dose: 200 mls/hr Ibuprofen (Motrin Tab) 600 mg PO Q6H PRN PRN Reason: Pain, moderate (4-7) Last Admin: 04/14/17 04:29 Dose: 600 mg Lisinopril (Zestril) 10 mg PO DAILY [facility] Last Admin: 04/14/17 09:42 Dose: 10 mg Pantoprazole Sodium (Protonix Ec Tab) 40 mg PO 0600 [facility] Last Admin: 04/14/17 06:16 Dose: 40 mg Phenobarbital (Phenobarbital Tab) 64.8 mg PO BID [facility] Last Admin: 04/14/17 09:41 Dose: 64.8 mg Sertraline HCl (Zoloft) 100 mg PO DAILY [facility] Last Admin: 04/14/17 09:43 Dose: 100 mg Thiamine HCl (Vitamin B1 Tab) 100 mg PO DAILY [facility] Last Admin: 04/14/17 13:32 Dose: 100 mg Ziprasidone (Geodon Inj) 20 mg IM Q6H PRN; Protocol PRN Reason: Agitation - Labs Labs: 04/14/17 11:20 04/14/17 11:20 - Constitutional Appears: Well, No Acute Distress - Head Exam Head Exam: ATRAUMATIC, NORMAL INSPECTION - Eye Exam Eye Exam: EOMI, Normal appearance Pupil Exam: NORMAL ACCOMODATION - ENT Exam ENT Exam: Mucous Membranes Moist - Neck Exam Neck Exam: Full ROM - Respiratory Exam Respiratory Exam: Clear to Ausculation Bilateral, NORMAL BREATHING PATTERN. absent: Rales, Rhonchi, Wheezes - Cardiovascular Exam Cardiovascular Exam: REGULAR RHYTHM, +S1, +S2. absent: Murmur - GI/Abdominal Exam GI & Abdominal Exam: Soft, Normal Bowel Sounds. absent: Guarding, Rigid, Tenderness, Rebound - Extremities Exam Extremities Exam: Normal Capillary Refill, Normal Inspection. absent: Joint Swelling, Pedal Edema Additional comments: +pedal pulses - Back Exam Back Exam: NORMAL INSPECTION - Neurological Exam Neurological Exam: Alert, Awake, Oriented x3 - Psychiatric Exam Psychiatric exam: Normal Affect, Normal Mood - Skin Skin Exam: Normal Color, Warm Assessment and Plan - Assessment and Plan (Free Text) Assessment: This is a 41 year old male with past medical history significant for depression , schizophrenia, substance abuse and non compliance who presents to the [facility] for weakness and depression with thoughts of suicidal ideation. Plan: 1. [place] [address] [place] - Patient had elevated CK on previous admission, however signed out AMA - Continue IVF NS @ 200mL an Hour - [place] today [address], continue to trend - Neurology consulted, f/u recommendations - Per neurology, rhabo likely 2/2 prolonged sleep/unconscious condition - Monitor labs 2. Depression with Suicidal Ideation; Hx Schizoaffective disorder - Hx of depression with statements of harming himself - Patient currently denies suicidal or homicidal ideation - Psych consulted, f/u recommendations - Continue Zoloft 100mg daily 3. Acute Back/Hip pain - Hip Xray: L periacetabular ossification - Lumbar Xray: Shallow AP lumbar spine - Lumbar MRI: unremarkable - Pain control: Percocet 5-325mg STAT, Motrin prn pain - PT ordered, f/u recommendations 4. History of Substance of abuse - UDS + for opiates, benzos, barbituates - Not currently having withdrawal symptoms - Continue Folic acid, Thiamine, Vitamin B12 - Psych consulted, f/u recommendations 5. Transaminitis - Patient denies recent tylenol use, alcohol use - AST/ALT: 203/115 - Avoid hepatotoxic agents - Continue to trend 6. Hx of HTN - Continue Lisinopril - Monitor 7. Hx of Epilepsy - Reports last seizure was at least 2 months ago - Continue Carbamazapine - Continue Phenobarbital - Monitor for signs and symptoms 8. GI/DVT ppx - Protonix/scds <Constanza Christian - Last Filed: 04/17/17 11:24> Objective - Vital Signs/Intake and Output Vital Signs (last 24 hours): Temp Pulse Resp BP Pulse Ox 98.5 F 70 20 146/93 H 98 04/15/17 17:02 04/15/17 17:02 04/15/17 17:02 04/16/17 09:48 04/15/17 17:02 - Labs Labs: 04/16/17 08:53 04/16/17 08:53 Attending/Attestation - Attestation I have personally seen and examined this patient.: Yes I have fully participated in the care of the patient.: Yes I have reviewed all pertinent clinical information, including history, physical exam and plan: Yes Notes (Text): I have seen and examined patient at bedside. Agree with the above note with the following addition/ exception: Briefly this is 41 year old male with history of depression, schizophrenia, substance abuse and non compliance who was admitted for generalized weakness and suicidal ideation. He was also found to have non traumatic rhabdomyolysis. Continue IVF. Patient admits to depression. Awaiting psych consult. Back pain is better. Lumbar MRI unremarkable. Continue carbamazepine, phenobarbital and lisinopril. Upon discharge patient will follow up with Dr Narvaez. Dr Constanza Christian
--- NOTE | 2017-04-15 02:22 | CP.PCM.PN ---
Subjective - Date & Time of Evaluation Date of Evaluation: 04/15/17 Time of Evaluation: 02:19 - Subjective Subjective: S:It was requested to insert heparin lock. Patient complains of pain and refuses to have motrin which is ordered for pain. Has Geodon on orders which will be given to him. Has no other complaints. Pertinent medical record was reviewed. O: Last Vital Signs 3 Temp 98.2 F 04/14/17 16:00 Pulse 88 04/14/17 16:00 Resp 20 04/14/17 16:00 BP 135/91 H 04/14/17 16:00 Pulse Ox 96 04/14/17 16:00 Awake , alert, not in distress. LUNGS:Normal breathing pattern. A:Poor venous access. Encounter for intravenous line placement. P:# 22 angioctath was inserted in left upper arm. Objective - Vital Signs/Intake and Output Vital Signs (last 24 hours): Temp Pulse Resp BP Pulse Ox 98.2 F 88 20 135/91 H 96 04/14/17 16:00 04/14/17 16:00 04/14/17 16:00 04/14/17 16:00 04/14/17 16:00 Intake and Output: 04/14/17 04/15/17 18:59 06:59 Intake Total 660 Balance 660 - Medications Medications: Current Medications Carbamazepine (Tegretol) 200 mg PO BID [facility] PRN Reason: Protocol Last Admin: 04/14/17 20:10 Dose: 200 mg Cyanocobalamin (Vitamin B12 1000 Mcg/Ml Inj) 1,000 mcg IM DAILY [facility] Stop: 04/19/17 10:01 Last Admin: 04/14/17 09:43 Dose: 1,000 mcg Folic Acid (Folic Acid) 1 mg PO DAILY [facility] Last Admin: 04/14/17 13:32 Dose: 1 mg Gabapentin (Neurontin) 300 mg PO BID [facility] PRN Reason: Protocol Last Admin: 04/14/17 20:10 Dose: 300 mg Sodium Chloride (Sodium Chloride 0.9%) 1,000 mls @ 200 mls/hr IV .Q5H [facility] Last Admin: 04/14/17 08:44 Dose: 200 mls/hr Ibuprofen (Motrin Tab) 600 mg PO Q6H PRN PRN Reason: Pain, moderate (4-7) Last Admin: 04/14/17 04:29 Dose: 600 mg Lisinopril (Zestril) 10 mg PO DAILY [facility] Last Admin: 04/14/17 09:42 Dose: 10 mg Pantoprazole Sodium (Protonix Ec Tab) 40 mg PO 0600 [facility] Last Admin: 04/14/17 06:16 Dose: 40 mg Phenobarbital (Phenobarbital Tab) 64.8 mg PO BID [facility] Last Admin: 04/14/17 20:09 Dose: 64.8 mg Sertraline HCl (Zoloft) 100 mg PO DAILY [facility] Last Admin: 04/14/17 09:43 Dose: 100 mg Thiamine HCl (Vitamin B1 Tab) 100 mg PO DAILY [facility] Last Admin: 04/14/17 13:32 Dose: 100 mg Ziprasidone (Geodon Inj) 20 mg IM Q6H PRN; Protocol PRN Reason: Agitation Last Admin: 04/14/17 20:10 Dose: 20 mg - Labs Labs: 04/14/17 11:20 04/14/17 11:20
[2017-04-15] MEDS: Sodium Chloride 0.9% 1,000 ML IV SCH ×2 (02:30→19:47)
--- NOTE | 2017-04-15 02:31 | CP.PCM.PN ---
Subjective - Date & Time of Evaluation Date of Evaluation: 04/14/17 Time of Evaluation: 01:28 (Hep lock started 26 hours ago.) - Subjective Subjective: S:It was requested to insert heplock. Patient has no other complaints now. Medical record was reviewed. O:VSS. Not in distress. LUNGS:Normal breathing pattern. A:Poor venous access. Encounter for intravenous line placement. P:# 24 angiocath was inserted at base of left index finger. Objective - Vital Signs/Intake and Output Vital Signs (last 24 hours): Temp Pulse Resp BP Pulse Ox 98.2 F 88 20 135/91 H 96 04/14/17 16:00 04/14/17 16:00 04/14/17 16:00 04/14/17 16:00 04/14/17 16:00 Intake and Output: 04/14/17 04/15/17 18:59 06:59 Intake Total 660 Balance 660 - Medications Medications: Current Medications Carbamazepine (Tegretol) 200 mg PO BID [facility] PRN Reason: Protocol Last Admin: 04/14/17 20:10 Dose: 200 mg Cyanocobalamin (Vitamin B12 1000 Mcg/Ml Inj) 1,000 mcg IM DAILY [facility] Stop: 04/19/17 10:01 Last Admin: 04/14/17 09:43 Dose: 1,000 mcg Folic Acid (Folic Acid) 1 mg PO DAILY [facility] Last Admin: 04/14/17 13:32 Dose: 1 mg Gabapentin (Neurontin) 300 mg PO BID [facility] PRN Reason: Protocol Last Admin: 04/14/17 20:10 Dose: 300 mg Sodium Chloride (Sodium Chloride 0.9%) 1,000 mls @ 200 mls/hr IV .Q5H [facility] Last Admin: 04/14/17 08:44 Dose: 200 mls/hr Ibuprofen (Motrin Tab) 600 mg PO Q6H PRN PRN Reason: Pain, moderate (4-7) Last Admin: 04/14/17 04:29 Dose: 600 mg Lisinopril (Zestril) 10 mg PO DAILY [facility] Last Admin: 04/14/17 09:42 Dose: 10 mg Pantoprazole Sodium (Protonix Ec Tab) 40 mg PO 0600 [facility] Last Admin: 04/14/17 06:16 Dose: 40 mg Phenobarbital (Phenobarbital Tab) 64.8 mg PO BID [facility] Last Admin: 04/14/17 20:09 Dose: 64.8 mg Sertraline HCl (Zoloft) 100 mg PO DAILY [facility] Last Admin: 04/14/17 09:43 Dose: 100 mg Thiamine HCl (Vitamin B1 Tab) 100 mg PO DAILY [facility] Last Admin: 04/14/17 13:32 Dose: 100 mg Ziprasidone (Geodon Inj) 20 mg IM Q6H PRN; Protocol PRN Reason: Agitation Last Admin: 04/14/17 20:10 Dose: 20 mg - Labs Labs: 04/14/17 11:20 04/14/17 11:20
[2017-04-15] MEDS: Pantoprazole 40 mg EC Tab PO SCH (05:21)
[2017-04-15] MEDS ORDERED: Oxycodone/Acetaminophen 5/325 mg Tab PO ONE (05:48)
[2017-04-15 07:43] LABS: HEMATOCRIT 35.4 % (42.0-52.0); MEAN CELL VOLUME 85.9 fl (80.0-105.0); MEAN CORPUSCULAR HEMOGLOBIN 28.9 pg (25.0-35.0); MEAN CORPUSCULAR HGB CONC 33.6 g/dl (31.0-37.0); MEAN PLATELET VOLUME 10.5 fl (7.0-11.0); RED CELL DISTRIBUTION WIDTH 12.9 % (11.5-14.5); WHITE BLOOD COUNT 5.1 10^3/ul (4.5-11.0)
[2017-04-15 07:59] LABS: ALB/GLOB RATIO 1.2 (1.1-1.8); ALKALINE PHOSPHATASE 104 U/L (38-133); ALT/SGPT 110 U/L (7-56); AST/SGOT 158 U/L (15-59); BLOOD UREA NITROGEN 12 mg/dL (7-21); CALCIUM 8.7 mg/dL (8.4-10.5); CARBON DIOXIDE 25 mmol/L (21-33); CHLORIDE 108 mmol/L (98-107); GFR AFRICAN-AMERICAN > 60; GLUCOSE,RANDOM 136 mg/dL (70-110); MAGNESIUM 1.7 mg/dL (1.7-2.2); POTASSIUM 4.1 mmol/L (3.6-5.0); SODIUM 143 mmol/L (132-148); TOTAL PROTEIN 6.5 g/dL (5.8-8.3)
[2017-04-15 08:02] LABS: BILIRUBIN,TOTAL < 0.1 mg/dL (0.2-1.3)
[2017-04-15 08:14] VITALS: O2SAT 98
[2017-04-15 10:26] VITALS: PULSE 70
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
--- NOTE | 2017-04-15 16:30 | CP.PCM.PN ---
<JimmyJessica - Last Filed: 04/15/17 16:38> Subjective - Date & Time of Evaluation Date of Evaluation: 04/15/17 Time of Evaluation: 07:15 - Subjective Subjective: Jessica Marquez DO, PGY-1, Internal Medicine, Hospitalist Service Patient seen and examined at bedside. Yesterday patient was very agitated and adament about leaving the hospital. He removed IV line and was yelling at staff members. Wally carrizales was called. Geodon was given for agitation. This morning, patient is calm/pleasant, sitting up in bed. Denies any pain, headaches, dizziness, cp, sob, abdominal pain, constipation, diarrhea. Objective - Vital Signs/Intake and Output Vital Signs (last 24 hours): Temp Pulse Resp BP Pulse Ox 98 F 70 16 141/97 H 98 04/15/17 08:13 04/15/17 10:16 04/15/17 08:13 04/15/17 10:16 04/15/17 08:13 Intake and Output: 04/15/17 04/15/17 06:59 18:59 Intake Total 660 Balance 660 - Medications Medications: Current Medications Carbamazepine (Tegretol) 200 mg PO BID JANINE PRN Reason: Protocol Last Admin: 04/15/17 10:15 Dose: 200 mg Cyanocobalamin (Vitamin B12 1000 Mcg/Ml Inj) 1,000 mcg IM DAILY JANINE Stop: 04/19/17 10:01 Last Admin: 04/15/17 10:15 Dose: 1,000 mcg Diphenhydramine HCl (Benadryl) 25 mg PO Q6 PRN PRN Reason: Allergy symptoms Last Admin: 04/15/17 13:48 Dose: 25 mg Folic Acid (Folic Acid) 1 mg PO DAILY [facility] Last Admin: 04/15/17 10:15 Dose: 1 mg Gabapentin (Neurontin) 300 mg PO BID JANINE PRN Reason: Protocol Last Admin: 04/15/17 10:16 Dose: 300 mg Sodium Chloride (Sodium Chloride 0.9%) 1,000 mls @ 200 mls/hr IV .Q5H [facility] Last Admin: 04/15/17 02:30 Dose: 200 mls/hr Ibuprofen (Motrin Tab) 600 mg PO Q6H PRN PRN Reason: Pain, moderate (4-7) Last Admin: 04/15/17 05:42 Dose: 600 mg Ketorolac Tromethamine (Toradol) 15 mg IVP Q6H PRN PRN Reason: Pain, moderate (4-7) Last Admin: 04/15/17 10:27 Dose: 15 mg Lisinopril (Zestril) 10 mg PO DAILY [facility] Last Admin: 04/15/17 10:16 Dose: 10 mg Pantoprazole Sodium (Protonix Ec Tab) 40 mg PO 0600 [facility] Last Admin: 04/15/17 05:21 Dose: 40 mg Phenobarbital (Phenobarbital Tab) 64.8 mg PO BID [facility] Last Admin: 04/15/17 10:16 Dose: 64.8 mg Sertraline HCl (Zoloft) 100 mg PO DAILY [facility] Last Admin: 04/15/17 10:16 Dose: 100 mg Thiamine HCl (Vitamin B1 Tab) 100 mg PO DAILY [facility] Last Admin: 04/15/17 10:15 Dose: 100 mg Ziprasidone (Geodon Inj) 20 mg IM Q6H PRN; Protocol PRN Reason: Agitation Last Admin: 04/15/17 12:19 Dose: 20 mg - Labs Labs: 04/15/17 07:00 04/15/17 07:00 - Constitutional Appears: Well, No Acute Distress - Head Exam Head Exam: ATRAUMATIC, NORMAL INSPECTION, NORMOCEPHALIC - Eye Exam Eye Exam: EOMI, Normal appearance - ENT Exam ENT Exam: Mucous Membranes Moist - Neck Exam Neck Exam: Full ROM - Respiratory Exam Respiratory Exam: Clear to Ausculation Bilateral, NORMAL BREATHING PATTERN. absent: Rales, Rhonchi, Wheezes - Cardiovascular Exam Cardiovascular Exam: REGULAR RHYTHM, +S1, +S2 - GI/Abdominal Exam GI & Abdominal Exam: Soft, Normal Bowel Sounds. absent: Guarding, Rigid, Tenderness - Extremities Exam Extremities Exam: Full ROM, Normal Inspection. absent: Calf Tenderness, Pedal Edema - Back Exam Back Exam: NORMAL INSPECTION - Neurological Exam Neurological Exam: Alert, Awake, Normal Gait, Oriented x3 - Psychiatric Exam Psychiatric exam: Normal Affect, Normal Mood - Skin Skin Exam: Normal Color, Warm Assessment and Plan - Assessment and Plan (Free Text) Assessment: This is a 41 year old male with past medical history significant for depression , schizophrenia, substance abuse and non compliance who presents to the [facility] ED for weakness and depression with thoughts of suicidal ideation. Plan: 1. [place] [address] [place] - Patient had elevated CK on previous admission, however signed out AMA - Continue IVF NS @ 200mL an Hour - CK today 9014, continue to trend - Neurology consulted, f/u recommendations - Per neurology, rhabo likely 2/2 prolonged sleep/unconscious condition - Monitor labs 2. Depression with Suicidal Ideation; Hx Schizoaffective disorder; Hx of Bipolar Type I - Hx of depression with statements of harming himself - Patient currently denies suicidal or homicidal ideation - Patient was very agitated yesterday, wanted to sign out AMA, was given geodon prn - Patient was apologetic about his agitation, is currently amendable to staying in the hospital and continuing treatment - Evaluated by [place] screeners who concluded that patient will not need involuntary holding - Psych consulted, f/u recommendations - Continue Zoloft 100mg daily - Geodon 20mg prn agittion 3. Acute Back/Hip pain - Hip Xray: L periacetabular ossification - Lumbar Xray: Shallow AP lumbar spine - Lumbar MRI: unremarkable - Pain control: Toradol and Motrin prn pain - PT ordered, f/u recommendations 4. History of Substance of abuse - UDS + for opiates, benzos, barbituates - Not currently having withdrawal symptoms - Continue Folic acid, Thiamine, Vitamin B12 - Psych consulted, f/u recommendations 5. Transaminitis - Patient denies recent tylenol use, alcohol use - AST/ALT: 158/110, improving - Avoid hepatotoxic agents - Continue to trend 6. Hx of HTN - Continue Lisinopril - Monitor 7. Hx of Epilepsy - Reports last seizure was at least 2 months ago - Continue Carbamazapine - Continue Phenobarbital - Monitor for signs and symptoms 8. GI/DVT ppx - Protonix/scds <Constanza Christian - Last Filed: 04/17/17 12:16> Objective - Vital Signs/Intake and Output Vital Signs (last 24 hours): Temp Pulse Resp BP Pulse Ox 98.5 F 70 20 146/93 H 98 04/15/17 17:02 04/15/17 17:02 04/15/17 17:02 04/16/17 09:48 04/15/17 17:02 - Labs Labs: 04/16/17 08:53 04/16/17 08:53 Attending/Attestation - Attestation I have personally seen and examined this patient.: Yes I have fully participated in the care of the patient.: Yes I have reviewed all pertinent clinical information, including history, physical exam and plan: Yes Notes (Text): I have seen and examined patient at bedside. Agree with the above note with the following addition/ exception: Briefly this is 41 year old male with history of depression, schizophrenia, substance abuse and non compliance who was admitted for generalized weakness and suicidal ideation. He was also found to have non traumatic rhabdomyolysis. Continue IVF. Neuro consult appreciated. Patient did not have a seizure. Rhabdomyolysis was probably related to prolong sleep/ unconscious condition. Patient admits to depression. Psych consult appreciated and Dr Brown recommended [facility] screeners evaluation who actually came today and concluded that he does not need involuntary holding. Discussed with Dr Brown again. At this time, patient will not be held in the hospital against his will. Patient appears calm and states that he wants to stay today. Back pain is better. Lumbar MRI unremarkable. Continue carbamazepine, phenobarbital and lisinopril. Upon discharge patient will follow up with Dr Narvaez. Dr Constanza Christian
[2017-04-15 17:03] VITALS: RESP 20; TEMP 98.5
--- NOTE | 2017-04-16 01:20 | CON ---
DATE OF CONSULTATION: HISTORY OF PRESENT ILLNESS: The patient interviewed with social media job titles. The patient is a 41-year-old -[place] male with a long psychiatric history, who presents in a manic state and wanting to leave. He is being maintained on sertraline 100 mg daily, phenobarbital 64.8 mg b.i.d. for seizure disorder and Tegretol 200 mg b.i.d. The patient presents pressured, chewing gum repeatedly and rapidly, and with speech somewhat pressured, not appearing overtly psychotic, but lacking in insight. The patient is exhibiting much denial about the severity of his illness and its impact upon him. He has had a number of prior psychiatric hospitalizations including under my care (from 01/05/2014 to 01/06/2014). At the last time, he was admitted in an actively psychotic state under the influence of drugs and had recently been discharged from one of the numerous psychiatric hospitalizations that he had, had before and subsequent to that. The patient has a history of substance use as well as depression and anxiety. He had been given a diagnosis at that time of mood disorder, not otherwise specified and polysubstance abuse in an individual with a personality disorder, not otherwise specified. At that time, he had cut his right arm. He had most recently been hospitalized on the psychiatric unit this past 04/01 to 04/02. He was noted to have a history of schizophrenic spectrum disorder, has suffered from a traumatic brain injury in the past and has had a history of polysubstance abuse and dependence with chronic noncompliance. He had been homeless upon this most recent admission. He exhibited poor hygiene at that time. He exhibited severe thought blocking as well as a poverty of speech and thinking with poor impulse control. The patient's cognitive difficulties are attributed to his past traumatic brain injury, who is considered to be a poor historian. He had been drinking beer prior to his admission (prior to the present admission, he admits drinking a pint of vodka several times a week). He indicated that he has also been incarcerated a number of times in the past for drug use and sale. He presently is fixated on visiting his mother in [place], [place]. He was given a discharge diagnosis of schizoaffective disorder, mixed type; with an opioid use disorder, moderate and TBI. He left the hospital against medical advice. Given the patient's present refusal to come to the psychiatric unit, his poor insight, his impulsivity, his raciness and his intention to go to visit his mother in [place] (with he coming [place] presently according to the patient to visit his four children from two different relationships - these children are in their late teens to early 20s), the patient is considered to be at risk for dangerous behavior to himself or others and I am recommending that *------* be called to hospitalize this patient involuntarily. Corwin Brown MD/ PhD
[2017-04-16] MEDS: Sodium Chloride 0.9% 1,000 ML IV SCH (03:58)
[2017-04-16] MEDS: Pantoprazole 40 mg EC Tab PO SCH (05:18)
[2017-04-16 09:06] LABS: ALB/GLOB RATIO 1.2 (1.1-1.8); ALKALINE PHOSPHATASE 101 U/L (38-133); ALT/SGPT 102 U/L (7-56); AST/SGOT 112 U/L (15-59); BLOOD UREA NITROGEN 11 mg/dL (7-21); CALCIUM 8.5 mg/dL (8.4-10.5); CARBON DIOXIDE 23 mmol/L (21-33); CHLORIDE 110 mmol/L (98-107); GFR AFRICAN-AMERICAN > 60; GLUCOSE,RANDOM 183 mg/dL (70-110); MAGNESIUM 1.6 mg/dL (1.7-2.2); PHOSPHOROUS 3.3 mg/dL (2.5-4.5); POTASSIUM 3.8 mmol/L (3.6-5.0); SODIUM 144 mmol/L (132-148); TOTAL PROTEIN 6.3 g/dL (5.8-8.3)
[2017-04-16 09:16] LABS: BILIRUBIN,TOTAL < 0.1 mg/dL (0.2-1.3)
[2017-04-16 09:17] LABS: HEMATOCRIT 35.7 % (42.0-52.0); MEAN CELL VOLUME 85.8 fl (80.0-105.0); MEAN CORPUSCULAR HEMOGLOBIN 29.1 pg (25.0-35.0); MEAN CORPUSCULAR HGB CONC 33.9 g/dl (31.0-37.0); RED CELL DISTRIBUTION WIDTH 12.8 % (11.5-14.5); WHITE BLOOD COUNT 4.8 10^3/ul (4.5-11.0)
[2017-04-16 09:50] VITALS: BP 146/93
--- NOTE | 2017-04-16 22:24 | CP.PCM.DIS ---
<PRANAV WILLIAM - Last Filed: 04/16/17 22:20> Provider - Provider Date of Admission: 04/13/17 03:33 Attending physician: Constanza Christian MD Primary care physician: Dirk Narvaez MD Consults: Arturo-Austin Brown Neuro-Korya Time Spent in preparation of Discharge (in minutes): 58 Hospital Course - Lab Results Lab Results: Most Recent Lab Values WBC 4.8 10^3/ul (4.5-11.0) 04/16/17 08:53 RBC 4.16 10^6/uL (3.5-6.1) 04/16/17 08:53 Hgb 12.1 g/dL (14.0-18.0) L 04/16/17 08:53 Hct 35.7 % (42.0-52.0) L 04/16/17 08:53 MCV 85.8 fl (80.0-105.0) 04/16/17 08:53 MCH 29.1 pg (25.0-35.0) 04/16/17 08:53 MCHC 33.9 g/dl (31.0-37.0) 04/16/17 08:53 RDW 12.8 % (11.5-14.5) 04/16/17 08:53 Plt Count 395 10^3/uL (120.0-450.0) 04/16/17 08:53 MPV 10.0 fl (7.0-11.0) 04/16/17 08:53 Gran % 59.5 % (50.0-68.0) 04/14/17 11:20 Lymph % (Auto) 26.6 % (22.0-35.0) 04/14/17 11:20 [place] % (Auto) 8.9 % (1.0-6.0) H 04/14/17 11:20 Eos % (Auto) 4.8 % (1.5-5.0) 04/14/17 11:20 Baso % (Auto) 0.2 % (0.0-3.0) 04/14/17 11:20 Gran # 3.35 (1.4-6.5) 04/14/17 11:20 Lymph # 1.5 (1.2-3.4) 04/14/17 11:20 [place] # 0.5 (0.1-0.6) 04/14/17 11:20 Eos # 0.3 (0.0-0.7) 04/14/17 11:20 Baso # 0.01 K/mm3 (0.0-2.0) 04/14/17 11:20 Sodium 144 mmol/L (132-148) 04/16/17 08:53 Potassium 3.8 mmol/L (3.6-5.0) 04/16/17 08:53 Chloride 110 mmol/L (98-107) H 04/16/17 08:53 Carbon Dioxide 23 mmol/L (21-33) 04/16/17 08:53 Anion Gap 15 (10-20) 04/16/17 08:53 BUN 11 mg/dL (7-21) 04/16/17 08:53 Creatinine 0.7 mg/dL (0.5-1.4) 04/16/17 08:53 Est GFR ( Amer) > 60 04/16/17 08:53 Est GFR (Non-Af Amer) > 60 04/16/17 08:53 Random Glucose 183 mg/dL (70-110) H 04/16/17 08:53 Calcium 8.5 mg/dL (8.4-10.5) 04/16/17 08:53 Phosphorus 3.3 mg/dL (2.5-4.5) 04/16/17 08:53 Magnesium 1.6 mg/dL (1.7-2.2) L 04/16/17 08:53 Total Bilirubin < 0.1 mg/dL (0.2-1.3) L 04/16/17 08:53 AST 112 U/L (15-59) H 04/16/17 08:53 ALT 102 U/L (7-56) H 04/16/17 08:53 Alkaline Phosphatase 101 U/L (38-133) 04/16/17 08:53 Total Creatine Kinase 5380 U/L (35-230) H 04/16/17 08:53 CK-MB (CK-2) 2.7 ng/mL (0.0-3.6) 04/16/17 08:53 CK-MB (CK-2) % 0.1 % (2.5-3.0) L 04/15/17 07:00 Total Protein 6.3 g/dL (5.8-8.3) 04/16/17 08:53 Albumin 3.4 g/dL (3.0-4.8) 04/16/17 08:53 Globulin 2.9 gm/dL 04/16/17 08:53 Albumin/Globulin Ratio 1.2 (1.1-1.8) 04/16/17 08:53 Urine Color Yellow (YELLOW) 04/13/17 00:50 Urine Appearance Clear (CLEAR) 04/13/17 00:50 Urine pH 6.0 (4.7-8.0) 04/13/17 00:50 Ur Specific [place] 1.015 (1.005-1.035) 04/13/17 00:50 Urine Protein 30 mg/dL (<30 mg/dL) H 04/13/17 00:50 Urine Glucose (UA) Negative mg/dL (NEGATIVE) 04/13/17 00:50 Urine Ketones Negative mg/dL (NEGATIVE) 04/13/17 00:50 Urine Blood Large (NEGATIVE) H 04/13/17 00:50 Urine Nitrate Negative (NEGATIVE) 04/13/17 00:50 Urine Bilirubin Negative (NEGATIVE) 04/13/17 00:50 Urine Urobilinogen 0.2 E.U./dL (<1 E.U./dL) 04/13/17 00:50 Ur Leukocyte Esterase Negative Neal/uL (NEGATIVE) 04/13/17 00:50 Urine RBC 2 - 5 /hpf (0-2) 04/13/17 00:50 Urine WBC 0 - 2 /hpf (0-6) 04/13/17 00:50 Ur Epithelial Cells 0 - 2 /hpf (0-5) 04/13/17 00:50 Salicylates < 1 mg/dL (2.0-20.0) L 04/13/17 01:06 Urine Opiates Screen Positive (NEGATIVE) H 04/13/17 00:50 Urine Methadone Screen Negative (NEGATIVE) 04/13/17 00:50 Acetaminophen < 10.0 ug/ml (10.0-20.0) L 04/13/17 01:06 Ur Barbiturates Screen Positive (NEGATIVE) H 04/13/17 00:50 Carbamazepine 5 ug/mL (4.0-10.0) 04/13/17 01:06 Ur Phencyclidine Scrn Negative (NEGATIVE) 04/13/17 00:50 Ur Amphetamines Screen Negative (NEGATIVE) 04/13/17 00:50 U Benzodiazepines Scrn Positive (NEGATIVE) H 04/13/17 00:50 U Oth Cocaine Metabols Negative (NEGATIVE) 04/13/17 00:50 U Cannabinoids Screen Negative (NEGATIVE) 04/13/17 00:50 Alcohol, Quantitative < 10 mg/dL (0-10) 04/13/17 01:06 - Hospital Course Hospital Course: 41 year old male with past medical history significant for depression, schizophrenia, substance abuse and non compliance who [place] [facility] for weakness and depression with thoughts of suicidal ideation. Psych was consulted. [place] [address] and started on IV normal saline at 200mls/hr. Patients antidepressant home medications were restarted. Patient complained of intractable left buttock and left leg pain and neurology was consulted. A hip xray showed L periacetabular ossification, a lumbar xray showed shallow AP lumbar spine and a lumbar MRI was unremarkable. Patient was continued on carbamazapime and phenobarbital for seizures. Psychiatry saw patient and agreed with medicine team that patient should be kept on seizure medications and IM geodon prn for agitation. Patient became agitated on 04/15 and was requesting adamantly to sign himself out AMA. A bijan carrizales was called on the patient. The medicine team spoke to Dr. Brown directly and, per Dr. Brown , patient was deemed to have the mental capacity to sign himself out and that, if necessary, his psychiatric illness could be treated as an outpatient. However , patient eventually agreed to stay for further treatment. An evaluation by [place] screeners was requested to determine if patient needed involuntary holding for psychiatric care and concluded that patient will not need involuntary holding for psychiatric treatment. On 04/16 patient again requested to sign himself out AMA and, after medicine team explained in full detail the benefits of treatment and risks of refusing such treatment with patient verbalizing understanding of said benefits risks, patient signed out AMA. - Date & Time of H&P Date of H&P: 04/13/17 Time of H&P: 04:10 Discharge Exam - Head Exam Head Exam: ATRAUMATIC, NORMAL INSPECTION, NORMOCEPHALIC - Eye Exam Eye Exam: EOMI, Normal appearance, PERRL - ENT Exam ENT Exam: Mucous Membranes Moist, Normal Exam - Neck Exam Neck exam: Full Rom - Respiratory Exam Respiratory Exam: NORMAL BREATHING PATTERN, UNREMARKABLE. absent: Chest Wall Tenderness, Rales, Rhonchi, Wheezes, Respiratory Distress - Cardiovascular Exam Cardiovascular Exam: REGULAR RHYTHM, RRR, +S1, +S2. absent: Tachycardia, Systolic Murmur - GI/Abdominal Exam GI & Abdominal Exam: Normal Bowel Sounds, Soft. absent: Distended, Firm, Guarding, Tenderness - Exam Exam: absent: Bladder Distension - Extremities Exam Extremities exam: normal capillary refill, pedal pulses present Additional comments: No pedal edema or calf tenderness bilaterally on exam - Back Exam Back exam: absent: CVA tenderness (L), CVA tenderness (R) - Neurological Exam Neurological exam: Alert, Normal Gait, Oriented x3 - Psychiatric Exam Psychiatric exam: Normal Affect, Normal Mood - Skin Skin Exam: Dry, Intact, Normal Color, Warm Discharge Plan - Follow Up Plan Condition: FAIR Disposition: AGAINST MEDICAL ADVICE Referrals: Dirk Narvaez MD [Primary Care Provider] - <Constanza Christian - Last Filed: 04/17/17 12:30> Provider - Provider Date of Admission: 04/13/17 03:33 Attending physician: Constanza Christian MD Primary care physician: Dirk Narvaez MD Hospital Course - Lab Results Lab Results: Most Recent Lab Values WBC 4.8 10^3/ul (4.5-11.0) 04/16/17 08:53 RBC 4.16 10^6/uL (3.5-6.1) 04/16/17 08:53 Hgb 12.1 g/dL (14.0-18.0) L 04/16/17 08:53 Hct 35.7 % (42.0-52.0) L 04/16/17 08:53 MCV 85.8 fl (80.0-105.0) 04/16/17 08:53 MCH 29.1 pg (25.0-35.0) 04/16/17 08:53 MCHC 33.9 g/dl (31.0-37.0) 04/16/17 08:53 RDW 12.8 % (11.5-14.5) 04/16/17 08:53 Plt Count 395 10^3/uL (120.0-450.0) 04/16/17 08:53 MPV 10.0 fl (7.0-11.0) 04/16/17 08:53 Gran % 59.5 % (50.0-68.0) 04/14/17 11:20 Lymph % (Auto) 26.6 % (22.0-35.0) 04/14/17 11:20 [place] % (Auto) 8.9 % (1.0-6.0) H 04/14/17 11:20 Eos % (Auto) 4.8 % (1.5-5.0) 04/14/17 11:20 Baso % (Auto) 0.2 % (0.0-3.0) 04/14/17 11:20 Gran # 3.35 (1.4-6.5) 04/14/17 11:20 Lymph # 1.5 (1.2-3.4) 04/14/17 11:20 [place] # 0.5 (0.1-0.6) 04/14/17 11:20 Eos # 0.3 (0.0-0.7) 04/14/17 11:20 Baso # 0.01 K/mm3 (0.0-2.0) 04/14/17 11:20 Sodium 144 mmol/L (132-148) 04/16/17 08:53 Potassium 3.8 mmol/L (3.6-5.0) 04/16/17 08:53 Chloride 110 mmol/L (98-107) H 04/16/17 08:53 Carbon Dioxide 23 mmol/L (21-33) 04/16/17 08:53 Anion Gap 15 (10-20) 04/16/17 08:53 BUN 11 mg/dL (7-21) 04/16/17 08:53 Creatinine 0.7 mg/dL (0.5-1.4) 04/16/17 08:53 Est GFR ( Amer) > 60 04/16/17 08:53 Est GFR (Non-Af Amer) > 60 04/16/17 08:53 Random Glucose 183 mg/dL (70-110) H 04/16/17 08:53 Calcium 8.5 mg/dL (8.4-10.5) 04/16/17 08:53 Phosphorus 3.3 mg/dL (2.5-4.5) 04/16/17 08:53 Magnesium 1.6 mg/dL (1.7-2.2) L 04/16/17 08:53 Total Bilirubin < 0.1 mg/dL (0.2-1.3) L 04/16/17 08:53 AST 112 U/L (15-59) H 04/16/17 08:53 ALT 102 U/L (7-56) H 04/16/17 08:53 Alkaline Phosphatase 101 U/L (38-133) 04/16/17 08:53 Total Creatine Kinase 5380 U/L (35-230) H 04/16/17 08:53 CK-MB (CK-2) 2.7 ng/mL (0.0-3.6) 04/16/17 08:53 CK-MB (CK-2) % 0.1 % (2.5-3.0) L 04/15/17 07:00 Total Protein 6.3 g/dL (5.8-8.3) 04/16/17 08:53 Albumin 3.4 g/dL (3.0-4.8) 04/16/17 08:53 Globulin 2.9 gm/dL 04/16/17 08:53 Albumin/Globulin Ratio 1.2 (1.1-1.8) 04/16/17 08:53 Urine Color Yellow (YELLOW) 04/13/17 00:50 Urine Appearance Clear (CLEAR) 04/13/17 00:50 Urine pH 6.0 (4.7-8.0) 04/13/17 00:50 Ur Specific [place] 1.015 (1.005-1.035) 04/13/17 00:50 Urine Protein 30 mg/dL (<30 mg/dL) H 04/13/17 00:50 Urine Glucose (UA) Negative mg/dL (NEGATIVE) 04/13/17 00:50 Urine Ketones Negative mg/dL (NEGATIVE) 04/13/17 00:50 Urine Blood Large (NEGATIVE) H 04/13/17 00:50 Urine Nitrate Negative (NEGATIVE) 04/13/17 00:50 Urine Bilirubin Negative (NEGATIVE) 04/13/17 00:50 Urine Urobilinogen 0.2 E.U./dL (<1 E.U./dL) 04/13/17 00:50 Ur Leukocyte Esterase Negative Neal/uL (NEGATIVE) 04/13/17 00:50 Urine RBC 2 - 5 /hpf (0-2) 04/13/17 00:50 Urine WBC 0 - 2 /hpf (0-6) 04/13/17 00:50 Ur Epithelial Cells 0 - 2 /hpf (0-5) 04/13/17 00:50 Salicylates < 1 mg/dL (2.0-20.0) L 04/13/17 01:06 Urine Opiates Screen Positive (NEGATIVE) H 04/13/17 00:50 Urine Methadone Screen Negative (NEGATIVE) 04/13/17 00:50 Acetaminophen < 10.0 ug/ml (10.0-20.0) L 04/13/17 01:06 Ur Barbiturates Screen Positive (NEGATIVE) H 04/13/17 00:50 Carbamazepine 5 ug/mL (4.0-10.0) 04/13/17 01:06 Ur Phencyclidine Scrn Negative (NEGATIVE) 04/13/17 00:50 Ur Amphetamines Screen Negative (NEGATIVE) 04/13/17 00:50 U Benzodiazepines Scrn Positive (NEGATIVE) H 04/13/17 00:50 U Oth Cocaine Metabols Negative (NEGATIVE) 04/13/17 00:50 U Cannabinoids Screen Negative (NEGATIVE) 04/13/17 00:50 Alcohol, Quantitative < 10 mg/dL (0-10) 04/13/17 01:06 Attending/Attestation - Attestation I have personally seen and examined this patient.: Yes I have fully participated in the care of the patient.: Yes I have reviewed all pertinent clinical information, including history, physical exam and plan: Yes Notes (Text): I have seen and examined patient at bedside. Agree with the above note with the following addition/ exception: Briefly this is 41 year old male with history of depression, schizophrenia, substance abuse and non compliance who was admitted for generalized weakness and found to have non traumatic rhabdomyolysis. He was on Ivf. Patient did not have a seizure. Rhabdomyolysis was probably related to prolong sleep/ unconscious condition. Patient admits to depression. Psych consult appreciated and Dr Brown recommended [facility] screeners evaluation who actually came yesterday and concluded that he does not need involuntary holding. At this time, patient will not be held in the hospital against his will. Patient appears calm and denies suicidal or homicidal ideation. He left AMA. He was explained about the risk factors and complications. Back pain is better. Lumbar MRI unremarkable. Continue carbamazepine, phenobarbital and lisinopril. Upon discharge patient will follow up with Dr Narvaez. Dr Constanza Christian
== END 2017-04-16 16:22 | disposition left against medical advice (07) | DRG 248 ==
LOC: ED 00:05 → ERH 03:33 → 5RNO 05:37
PROVIDERS: ADMIT Internal Medicine; ATTEND Hospitalist
DX: M62.82 Rhabdomyolysis (principal); F25.0 Schizoaffective disorder, bipolar type; F11.10 Opioid abuse, uncomplicated; F14.10 Cocaine abuse, uncomplicated; E46 Unspecified protein-calorie malnutrition; I10 Essential (primary) hypertension; G40.909 Epilepsy, unspecified, not intractable, without status epilepticus; F17.210 Nicotine dependence, cigarettes, uncomplicated; F31.60 Bipolar disorder, current episode mixed, unspecified; M25.559 Pain in unspecified hip; M54.5 Low back pain; Z91.19 Patient's noncompliance with other medical treatment and regimen; Z68.24 Body mass index [BMI] 24.0-24.9, adult; Z59.0 Homelessness

== ENCOUNTER 2017-04-18 16:17 | Observation (INO) | payer MEDICAID ==
[2017-04-18 16:17] VITALS: BMI 28.7
[2017-04-18 16:52] VITALS: RESP 16; TEMP 98.4
[2017-04-18] MEDS ORDERED: Sodium Chloride 0.9% 1,000 ML IV STA (17:28)
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
[2017-04-18 19:44] LABS: BASO # 0.02 K/mm3 (0.0-2.0); BASO % 0.2 % (0.0-3.0); EOS # 0.3 (0.0-0.7); EOS % 3.2 % (1.5-5.0); GRAN # 5.86 (1.4-6.5); GRAN % 66.8 % (50.0-68.0); HEMATOCRIT 38.1 % (42.0-52.0); LYMPH % 23.1 % (22.0-35.0); MEAN CELL VOLUME 85.8 fl (80.0-105.0); MEAN CORPUSCULAR HEMOGLOBIN 29.5 pg (25.0-35.0); MEAN CORPUSCULAR HGB CONC 34.4 g/dl (31.0-37.0); MEAN PLATELET VOLUME 9.9 fl (7.0-11.0); MONO # 0.6 (0.1-0.6); MONO % 6.7 % (1.0-6.0); RED CELL DISTRIBUTION WIDTH 12.8 % (11.5-14.5); WHITE BLOOD COUNT 8.8 10^3/ul (4.5-11.0)
[2017-04-18 19:53] LABS: ALB/GLOB RATIO 1.2 (1.1-1.8); ALKALINE PHOSPHATASE 140 U/L (38-133); ALT/SGPT 103 U/L (7-56); AST/SGOT 73 U/L (15-59); BILIRUBIN,TOTAL 0.4 mg/dL (0.2-1.3); BLOOD UREA NITROGEN 11 mg/dL (7-21); CALCIUM 9.5 mg/dL (8.4-10.5); CARBON DIOXIDE 25 mmol/L (21-33); CHLORIDE 102 mmol/L (95-110); GFR AFRICAN-AMERICAN > 60; GLUCOSE,RANDOM 91 mg/dL (70-110); POTASSIUM 3.7 mmol/L (3.6-5.0); SODIUM 142 mmol/L (132-148); TOTAL PROTEIN 8.3 g/dL (5.8-8.3)
--- NOTE | 2017-04-18 20:31 | US ---
HISTORY: Leg pain and swelling. Evaluate for DVT PHYSICIAN(S): Ravin Richard MD. TECHNIQUE: Duplex sonography and color-flow Doppler with graded compression were used to evaluate the deep venous systems of both lower extremities. FINDINGS: The visualized deep venous systems of both lower extremities are sonographically normal and compressible. Normal wave forms and augmentation are seen. There is no sonographic evidence for deep venous thrombosis in the visualized segments of both lower extremities. IMPRESSION: No sonographic evidence for deep venous thrombosis in the visualized segments of both lower extremities.
[2017-04-19 02:34] LABS: PH,URINE 6.5 (4.7-8.0); URINE BILIRUBIN NEGATIVE (NEGATIVE); URINE BLOOD NEGATIVE (NEGATIVE); URINE GLUCOSE (UA) NEGATIVE (NEGATIVE); URINE KETONE NEGATIVE (NEGATIVE); URINE LEUKOCYTE ESTERASE NEGATIVE Leu/uL (NEGATIVE); URINE PROTEIN NEGATIVE mg/dL (<30 mg/dL)
[2017-04-19 02:38] LABS: URINE APPEARANCE CLEAR (CLEAR); URINE COLOR YELLOW (YELLOW)
[2017-04-19 06:27] VITALS: BP 128/74; PULSE 64; O2SAT 100
--- NOTE | 2017-04-19 19:33 | CARD ---
APPROVED REPORT EKG Measurement Heart [id number] <Conclusion> Normal sinus rhythm Nonspecific T wave abnormality Abnormal ECG
== END 2017-04-19 06:25 | disposition home or self-care (01) ==
LOC: ED 16:17 → EROBSV 17:25
PROVIDERS: ADMIT Student in an Organized Health Care Education/Training Program; ATTEND Student in an Organized Health Care Education/Training Program
DX: G89.29 Other chronic pain (principal); F10.129 Alcohol abuse with intoxication, unspecified; M79.605 Pain in left leg; M79.604 Pain in right leg
CPT/HCPCS: 80053; 80324; 80345; 80346; 80349; 80353; 80358; 80361; 81003; 82550; 82553; 83992; 85025; 93005; 93970; 99285; J7040

== ENCOUNTER 2017-05-01 15:19 | Emergency (ER) | payer MEDICAID ==
[2017-05-01 15:20] VITALS: BMI 28.7
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
[2017-05-01 17:04] VITALS: RESP 18; TEMP 98.2
--- NOTE | 2017-05-01 17:30 | CT ---
PROCEDURE: CT HEAD WITHOUT CONTRAST. HISTORY: r/o ICH and fx COMPARISON: Noncontrast head CT performed 08/30/13 TECHNIQUE: Axial computed tomography images were obtained through the head/brain without intravenous contrast. Radiation dose: Total exam DLP = 836.17 mGy-cm. This CT exam was performed using one or more of the following dose reduction techniques: Automated exposure control, adjustment of the mA and/or kV according to patient size, and/or use of iterative reconstruction technique. FINDINGS: HEMORRHAGE: No intracranial hemorrhage. BRAIN: No mass effect or edema. Encephalomalacia within the left occipital and parietal lobes. Please note that MRI with diffusion imaging is more sensitive in the detection of acute ischemic event. VENTRICLES: Cavum septum pellucidum, anatomic variant. No hydrocephalus. CALVARIUM: Unremarkable. PARANASAL SINUSES: Unremarkable as visualized. No significant inflammatory changes. MASTOID AIR CELLS: Unremarkable as visualized. No inflammatory changes. OTHER FINDINGS: None. IMPRESSION: Encephalomalacia within the left occipital and parietal lobes.
--- NOTE | 2017-05-01 17:35 | CT ---
CT orbits without IV contrast Indication: Rule out fracture Comparison: Noncontrast head CT performed the same day. Technique: Axial computed tomography images were obtained of the orbits without the use of intravenous contrast. Coronal and sagittal reformatted images were generated and reviewed. This CT exam was performed using 1 or more of the falling dose reduction techniques: Automated exposure control, adjustment of the MAA and/or kV according to patient size, and/or use of iterative reconstruction technique. Radiation dose: Total exam DLP = 834.89 mGy-cm. Findings: Right greater than left facial soft tissue swelling. The facial bones appear intact without acute displaced fracture. The orbits appear unremarkable. The temporomandibular joints are located. The visualized mastoid air cells appear clear. Mucosal thickening of the ethmoid air cells. The visualized paranasal sinuses appear otherwise clear. Partial opacification of the left external auditory canal, likely cerumen. The visualized brain demonstrates encephalomalacia within the left occipital parietal lobes. Impression: Right greater than left facial soft tissue swelling. No acute fracture identified.
[2017-05-01 18:40] VITALS: O2SAT 97
[2017-05-02 03:47] VITALS: BP 122/83; PULSE 82
== END 2017-05-01 22:52 | disposition home or self-care (01) ==
LOC: ED 15:19
DX: S00.81XA Abrasion of other part of head, initial encounter (principal); Y04.0XXA Assault by unarmed brawl or fight, initial encounter; F19.10 Other psychoactive substance abuse, uncomplicated

== ENCOUNTER 2017-06-05 20:52 | Emergency (ER) | payer MEDICAID ==
[2017-06-05 21:03] VITALS: BMI 18.6
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
[2017-06-05 22:38] LABS: BASO # 0.02 K/mm3 (0.0-2.0); BASO % 0.2 % (0.0-3.0); EOS # 0.4 (0.0-0.7); EOS % 4.6 % (1.5-5.0); GRAN # 5.74 (1.4-6.5); GRAN % 65.8 % (50.0-68.0); HEMATOCRIT 35.9 % (42.0-52.0); LYMPH # 2.1 (1.2-3.4); LYMPH % 23.8 % (22.0-35.0); MEAN CELL VOLUME 85.9 fl (80.0-105.0); MEAN CORPUSCULAR HEMOGLOBIN 29.4 pg (25.0-35.0); MEAN CORPUSCULAR HGB CONC 34.3 g/dl (31.0-37.0); MEAN PLATELET VOLUME 10.1 fl (7.0-11.0); MONO # 0.5 (0.1-0.6); MONO % 5.6 % (1.0-6.0); RED CELL DISTRIBUTION WIDTH 14.4 % (11.5-14.5); WHITE BLOOD COUNT 8.7 10^3/ul (4.5-11.0)
[2017-06-05 22:47] LABS: ALB/GLOB RATIO 1.5 (1.1-1.8); ALKALINE PHOSPHATASE 124 U/L (38-126); ALT/SGPT 26 U/L (7-56); AST/SGOT 30 U/L (17-59); BILIRUBIN,TOTAL 0.4 mg/dL (0.2-1.3); BLOOD UREA NITROGEN 14 mg/dL (7-21); CALCIUM 8.6 mg/dL (8.4-10.5); CARBON DIOXIDE 24 mmol/L (21-33); CHLORIDE 106 mmol/L (98-107); GFR AFRICAN-AMERICAN > 60; GLUCOSE,RANDOM 115 mg/dL (70-110); POTASSIUM 3.6 mmol/L (3.6-5.0); SODIUM 142 mmol/L (132-148); TOTAL PROTEIN 6.7 g/dL (5.8-8.3)
[2017-06-06 01:12] LABS: URINE BILIRUBIN NEGATIVE (NEGATIVE); URINE BLOOD NEGATIVE (NEGATIVE); URINE GLUCOSE (UA) NEGATIVE (NEGATIVE); URINE KETONE NEGATIVE (NEGATIVE); URINE LEUKOCYTE ESTERASE NEGATIVE Leu/uL (NEGATIVE); URINE PROTEIN NEGATIVE mg/dL (<30 mg/dL)
[2017-06-06 01:37] LABS: URINE APPEARANCE CLEAR (CLEAR); URINE COLOR YELLOW (YELLOW)
[2017-06-06 06:12] VITALS: O2SAT 98
[2017-06-06 06:27] VITALS: BP 124/76; PULSE 92; RESP 20; TEMP 98.8
--- NOTE | 2017-06-06 08:56 | RAD ---
HISTORY: PES eval COMPARISON: 04/13/2027. FINDINGS: LUNGS: The lungs are well inflated and clear. PLEURA: No significant pleural effusion identified, no pneumothorax apparent. CARDIOVASCULAR: Normal. OSSEOUS STRUCTURES: No significant abnormalities. VISUALIZED UPPER ABDOMEN: Normal. OTHER FINDINGS: None. IMPRESSION: No active pulmonary disease.
--- NOTE | 2017-06-06 10:11 | CARD ---
APPROVED REPORT EKG Measurement Heart [id number] <Conclusion> Normal sinus rhythm Nonspecific T wave abnormality Abnormal ECG
== END 2017-06-06 06:26 | disposition short-term general hospital (02) ==
LOC: ED 20:52
DX: F25.9 Schizoaffective disorder, unspecified (principal); I10 Essential (primary) hypertension; F17.210 Nicotine dependence, cigarettes, uncomplicated
CPT/HCPCS: 71010; 80053; 80320; 80324; 80329; 80345; 80346; 80349; 80353; 80358; 80361; 81003; 82550; 82553; 83992; 85025; 90791; 93005; 96372; 99285; J3486

== ENCOUNTER 2018-01-22 23:55 | Observation (INO) | payer MEDICAID ==
[2018-01-23 00:14] VITALS: BMI 25.0
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
[2018-01-23 02:21] LABS: ALB/GLOB RATIO 1.1 (1.1-1.8); ALBUMIN 3.4 g/dL (3.0-4.8); ALT/SGPT 27 U/L (7-56); AST/SGOT 22 U/L (17-59); BLOOD UREA NITROGEN 11 mg/dL (7-21); CALCIUM 8.8 mg/dL (8.4-10.5); GFR AFRICAN-AMERICAN > 60; GFR NON-AFRICAN AMERICAN > 60
--- NOTE | 2018-01-23 02:43 | RAD ---
EXAM: XR Chest, 1 View CLINICAL HISTORY: 42 years old, male; Screening exam; Other screening; Additional info: Medical clearance TECHNIQUE: Frontal view of the chest. COMPARISON: DX - CHEST PORTABLE 2017-06-05 22:13 FINDINGS: Limitations: Radiographic technique - mild. Lungs: Mild patchy opacity right infrahilar region. Pleural space: No pleural effusion. No pneumothorax. Heart: No cardiomegaly. Mediastinum: Unremarkable. Bones/joints: No acute fracture. IMPRESSION: 1. Right infrahilar opacity. DDX: Pneumonia, neoplasm. Suggest CT.
[2018-01-23 02:44] LABS: HEMOGLOBIN 10.8 g/dL (14.0-18.0); MEAN CELL VOLUME 85.8 fl (80.0-105.0); MEAN CORPUSCULAR HEMOGLOBIN 28.9 pg (25.0-35.0); MEAN CORPUSCULAR HGB CONC 33.6 g/dl (31.0-37.0); MEAN PLATELET VOLUME 9.5 fl (7.0-11.0); RBC 3.74 10^6/uL (3.5-6.1); RED CELL DISTRIBUTION WIDTH 14.6 % (11.5-14.5); WHITE BLOOD COUNT 8.6 10^3/ul (4.5-11.0)
--- NOTE | 2018-01-23 03:40 | CT ---
EXAM: CT Chest Without Intravenous Contrast CLINICAL HISTORY: 42 years old, male; Signs and symptoms; Other: R/O infil rt lung; Additional info: Right lung infiltrate TECHNIQUE: Axial computed tomography images of the chest without intravenous contrast. All CT scans at this facility use one or more dose reduction techniques, viz.: automated exposure control; ma/kV adjustment per patient size (including targeted exams where dose is matched to indication; i.e. head); or iterative reconstruction technique. Coronal and sagittal reformatted images were created and reviewed. COMPARISON: DX - CHEST PORTABLE 2018-01-23 01:28 FINDINGS: Limitations: Lack of intravenous contrast. Lungs: 2.7 x 2.5 x 2.8 cm rounded consolidation within right lower lobe with mild surrounding groundglass opacities. Mild peripheral atelectasis/scarring. Few pulmonary nodules, up to 0.6 cm. Minimal bullous changes within lung apices. Pleural space: No pneumothorax. No significant effusion. Heart: No cardiomegaly. No significant pericardial effusion. Mediastinum: Mild mucous along trachea. Bones/joints: Mild compression deformities mid thoracic spine, chronic. No acute fracture. Soft tissues: Unremarkable. Vasculature: Unremarkable. No aneurysm. Lymph nodes: No pathologically enlarged lymph nodes. IMPRESSION: 1. Rounded consolidation within right lower lobe. DDX: Neoplasm, pneumonia. Clinical correlation and follow up are recommended. 2. Pulmonary nodules. For low-risk patients recommend follow-up chest CT at 3-6 months. If unchanged consider an additional follow-up CT at 18-24 months. For high-risk patients (smoking history or other known risk factors) initial follow-up chest CT at 3-6 months and if unchanged, 18-24 months. 3. Incidental/non-acute findings are described above.
[2018-01-23] MEDS ORDERED: cefTRIAXone 1 gm 1 GM/100 ML BAG IV STA (03:50)
[2018-01-23] MEDS ORDERED: Azithromycin 500MG/NS 250ml 500 MG/250 ML BAG IV STA (03:50)
[2018-01-23 05:14] VITALS: TEMP 98.6
[2018-01-23 05:50] LABS: BARBITURATES, UR POSITIVE (NEGATIVE); BENZODIAZEPINES, UR NEGATIVE (NEGATIVE); OPIATES, UR POSITIVE (NEGATIVE); PHENCYCLIDINE, UR NEGATIVE (NEGATIVE)
[2018-01-23] MEDS ORDERED: Pantoprazole 40 mg EC Tab PO SCH (06:00)
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
[2018-01-23 07:40] LABS: BASO # 0.02 K/mm3 (0.0-2.0); BASO % 0.3 % (0.0-3.0); EOS # 0.2 (0.0-0.7); EOS % 2.3 % (1.5-5.0); GRAN # 5.55 (1.4-6.5); GRAN % 72.3 % (50.0-68.0); HEMOGLOBIN 10.7 g/dL (14.0-18.0); LYMPH # 1.2 (1.2-3.4); LYMPH % 15.8 % (22.0-35.0); MEAN CELL VOLUME 85.6 fl (80.0-105.0); MEAN CORPUSCULAR HGB CONC 32.7 g/dl (31.0-37.0); MEAN PLATELET VOLUME 9.7 fl (7.0-11.0); MONO # 0.7 (0.1-0.6); MONO % 9.3 % (1.0-6.0); RBC 3.82 10^6/uL (3.5-6.1); RED CELL DISTRIBUTION WIDTH 14.7 % (11.5-14.5); WHITE BLOOD COUNT 7.7 10^3/ul (4.5-11.0)
[2018-01-23] MEDS: Albuterol-Ipratrop 3 mg / 0.5 (3 ml) UD IH SCH ×2 (08:00→14:10)
[2018-01-23 08:03] LABS: CK-MB 2.2 ng/mL (0.0-3.6)
[2018-01-23 08:16] VITALS: BP 118/78; PULSE 69; RESP 20; O2SAT 98
[2018-01-23 10:55] LABS: IRON 30 ug/dL (45-180)
[2018-01-23 11:04] LABS: % IRON SATURATION 12 % (20-55); TOTAL IRON BINDING CAPACITY 252 ug/dL (261-462)
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
[2018-01-23] MEDS ORDERED: metroNIDAZOLE IV 250mg/50 ml 250 MG/50 ML BAG IVPB SCH (14:00)
--- NOTE | 2018-01-23 15:18 | CP.PCM.DIS ---
<Alyse Sinclair - Last Filed: 01/23/18 21:09> Provider - Provider Date of Admission: 01/23/18 04:14 Attending physician: Ivonne Jaimes MD Primary care physician: Fady De Jesus MD Time Spent in preparation of Discharge (in minutes): 40 Hospital Course - Lab Results Lab Results: Most Recent Lab Values WBC 7.7 10^3/ul (4.5-11.0) 01/23/18 07:30 RBC 3.82 10^6/uL (3.5-6.1) 01/23/18 07:30 Hgb 10.7 g/dL (14.0-18.0) L 01/23/18 07:30 Hct 32.7 % (42.0-52.0) L 01/23/18 07:30 MCV 85.6 fl (80.0-105.0) 01/23/18 07:30 MCH 28.0 pg (25.0-35.0) 01/23/18 07:30 MCHC 32.7 g/dl (31.0-37.0) 01/23/18 07:30 RDW 14.7 % (11.5-14.5) H 01/23/18 07:30 Plt Count 386 10^3/uL (120.0-450.0) 01/23/18 07:30 MPV 9.7 fl (7.0-11.0) 01/23/18 07:30 Gran % 72.3 % (50.0-68.0) H 01/23/18 07:30 Lymph % (Auto) 15.8 % (22.0-35.0) L 01/23/18 07:30 [place] % (Auto) 9.3 % (1.0-6.0) H 01/23/18 07:30 Eos % (Auto) 2.3 % (1.5-5.0) 01/23/18 07:30 Baso % (Auto) 0.3 % (0.0-3.0) 01/23/18 07:30 Gran # 5.55 (1.4-6.5) 01/23/18 07:30 Lymph # (Auto) 1.2 (1.2-3.4) 01/23/18 07:30 [place] # (Auto) 0.7 (0.1-0.6) H 01/23/18 07:30 Eos # (Auto) 0.2 (0.0-0.7) 01/23/18 07:30 Baso # (Auto) 0.02 K/mm3 (0.0-2.0) 01/23/18 07:30 ESR 30 mm/hr (0.0-15.0) H 01/23/18 07:30 Retic Count 0.88 % (0.5-1.5) 01/23/18 10:40 Sodium 146 mmol/L (132-148) 01/23/18 01:27 Potassium 4.1 mmol/L (3.6-5.0) 01/23/18 01:27 Chloride 109 mmol/L (98-107) H 01/23/18 01:27 Carbon Dioxide 28 mmol/L (21-33) 01/23/18 01:27 Anion Gap 13 (10-20) 01/23/18 01:27 BUN 11 mg/dL (7-21) 01/23/18 01:27 Creatinine 0.7 mg/dl (0.8-1.5) L 01/23/18 01:27 Est GFR ( Amer) > 60 01/23/18 01:27 Est GFR (Non-Af Amer) > 60 01/23/18 01:27 Random Glucose 92 mg/dL (70-110) 01/23/18 01:27 Calcium 8.8 mg/dL (8.4-10.5) 01/23/18 01:27 Iron 30 ug/dL (45-180) L 01/23/18 10:40 TIBC 252 ug/dL (261-462) L 01/23/18 10:40 % Saturation 12 % (20-55) L 01/23/18 10:40 Total Bilirubin < 0.1 mg/dL (0.2-1.3) L 01/23/18 01:27 AST 22 U/L (17-59) 01/23/18 01:27 ALT 27 U/L (7-56) 01/23/18 01:27 Alkaline Phosphatase 138 U/L (38-126) H 01/23/18 01:27 Total Creatine Kinase 240 U/L (35-230) H 01/23/18 07:30 CK-MB (CK-2) 2.2 ng/mL (0.0-3.6) 01/23/18 07:30 CK-MB (CK-2) % Cancelled 01/23/18 07:30 Total Protein 6.3 g/dL (5.8-8.3) 01/23/18 01:27 Albumin 3.4 g/dL (3.0-4.8) 01/23/18 01:27 Globulin 3.0 gm/dL 01/23/18 01:27 Albumin/Globulin Ratio 1.1 (1.1-1.8) 01/23/18 01:27 Procalcitonin < 0.05 NG/ML (0.19-0.49) L 01/23/18 01:27 Urine Opiates Screen Positive (NEGATIVE) H 01/23/18 05:00 Urine Methadone Screen Negative (NEGATIVE) 01/23/18 05:00 Ur Barbiturates Screen Positive (NEGATIVE) H 01/23/18 05:00 Carbamazepine < 3 ug/mL (4.0-10.0) L 01/23/18 01:27 Ur Phencyclidine Scrn Negative (NEGATIVE) 01/23/18 05:00 Ur Amphetamines Screen Negative (NEGATIVE) 01/23/18 05:00 U Benzodiazepines Scrn Negative (NEGATIVE) 01/23/18 05:00 U Oth Cocaine Metabols Positive (NEGATIVE) H 01/23/18 05:00 U Cannabinoids Screen Negative (NEGATIVE) 01/23/18 05:00 Alcohol, Quantitative < 10 mg/dL (0-10) 01/23/18 01:27 - Hospital Course Hospital Course: 42 year old male with a past medical history significant for HTN, Depression, Schizophrenia, Seizure Disorder, Bipolar disorder I, Hepatitis C, and polysubstance abuse who presents with a week and a half of "not feeling well". Patient is alert and oriented to person, place, time and event on presentation. He endorsed that he is he injected multiple bags of heroin and an unspecified amount of cocaine prior to arrival. chest x-ray and chest CT showed a new right infrahilar consolidation suggestive of either an infectious process or malignancy. Patient was treated for right infrahilar consolidation with antibiotics, and breathing treatments. ID and Pulmonology consulted. Patient was continued on home meds. He was monitored for withdrawal symptoms. Patient told nurse that he wanted to leave and go home, patient eloped. Discharge Exam - Head Exam Head Exam: ATRAUMATIC, NORMOCEPHALIC Discharge Plan - Follow Up Plan Condition: STABLE Disposition: AGAINST MEDICAL ADVICE Referrals: Fady De Jesus MD [Primary Care Provider] - <Marcello Forte - Last Filed: 01/25/18 14:05> Provider - Provider Date of Admission: 01/23/18 04:14 Attending physician: Ivonne Jaimes MD Primary care physician: Fady De Jesus MD Hospital Course - Lab Results Lab Results: Micro Results 01/23/18 05:00 Blood Blood Culture - Preliminary NO GROWTH AFTER 48 HOURS 01/23/18 04:45 Blood Blood Culture - Preliminary NO GROWTH AFTER 48 HOURS Most Recent Lab Values WBC 7.7 10^3/ul (4.5-11.0) 01/23/18 07:30 RBC 3.82 10^6/uL (3.5-6.1) 01/23/18 07:30 Hgb 10.7 g/dL (14.0-18.0) L 01/23/18 07:30 Hct 32.7 % (42.0-52.0) L 01/23/18 07:30 MCV 85.6 fl (80.0-105.0) 01/23/18 07:30 MCH 28.0 pg (25.0-35.0) 01/23/18 07:30 MCHC 32.7 g/dl (31.0-37.0) 01/23/18 07:30 RDW 14.7 % (11.5-14.5) H 01/23/18 07:30 Plt Count 386 10^3/uL (120.0-450.0) 01/23/18 07:30 MPV 9.7 fl (7.0-11.0) 01/23/18 07:30 Gran % 72.3 % (50.0-68.0) H 01/23/18 07:30 Lymph % (Auto) 15.8 % (22.0-35.0) L 01/23/18 07:30 [place] % (Auto) 9.3 % (1.0-6.0) H 01/23/18 07:30 Eos % (Auto) 2.3 % (1.5-5.0) 01/23/18 07:30 Baso % (Auto) 0.3 % (0.0-3.0) 01/23/18 07:30 Gran # 5.55 (1.4-6.5) 01/23/18 07:30 Lymph # (Auto) 1.2 (1.2-3.4) 01/23/18 07:30 [place] # (Auto) 0.7 (0.1-0.6) H 01/23/18 07:30 Eos # (Auto) 0.2 (0.0-0.7) 01/23/18 07:30 Baso # (Auto) 0.02 K/mm3 (0.0-2.0) 01/23/18 07:30 ESR 30 mm/hr (0.0-15.0) H 01/23/18 07:30 Retic Count 0.88 % (0.5-1.5) 01/23/18 10:40 Sodium 146 mmol/L (132-148) 01/23/18 01:27 Potassium 4.1 mmol/L (3.6-5.0) 01/23/18 01:27 Chloride 109 mmol/L (98-107) H 01/23/18 01:27 Carbon Dioxide 28 mmol/L (21-33) 01/23/18 01:27 Anion Gap 13 (10-20) 01/23/18 01:27 BUN 11 mg/dL (7-21) 01/23/18 01:27 Creatinine 0.7 mg/dl (0.8-1.5) L 01/23/18 01:27 Est GFR ( Amer) > 60 01/23/18 01:27 Est GFR (Non-Af Amer) > 60 01/23/18 01:27 Random Glucose 92 mg/dL (70-110) 01/23/18 01:27 Calcium 8.8 mg/dL (8.4-10.5) 01/23/18 01:27 Iron 30 ug/dL (45-180) L 01/23/18 10:40 TIBC 252 ug/dL (261-462) L 01/23/18 10:40 % Saturation 12 % (20-55) L 01/23/18 10:40 Ferritin 36.1 ng/mL 01/23/18 10:40 Total Bilirubin < 0.1 mg/dL (0.2-1.3) L 01/23/18 01:27 AST 22 U/L (17-59) 01/23/18 01:27 ALT 27 U/L (7-56) 01/23/18 01:27 Alkaline Phosphatase 138 U/L (38-126) H 01/23/18 01:27 Total Creatine Kinase 240 U/L (35-230) H 01/23/18 07:30 CK-MB (CK-2) 2.2 ng/mL (0.0-3.6) 01/23/18 07:30 CK-MB (CK-2) % Cancelled 01/23/18 07:30 Total Protein 6.3 g/dL (5.8-8.3) 01/23/18 01:27 Albumin 3.4 g/dL (3.0-4.8) 01/23/18 01:27 Globulin 3.0 gm/dL 01/23/18 01:27 Albumin/Globulin Ratio 1.1 (1.1-1.8) 01/23/18 01:27 Vitamin B12 296 pg/mL (239-931) 01/23/18 10:40 Folate 15.3 ng/mL 01/23/18 10:40 Procalcitonin < 0.05 NG/ML (0.19-0.49) L 01/23/18 01:27 Urine Opiates Screen Positive (NEGATIVE) H 01/23/18 05:00 Urine Methadone Screen Negative (NEGATIVE) 01/23/18 05:00 Ur Barbiturates Screen Positive (NEGATIVE) H 01/23/18 05:00 Carbamazepine < 3 ug/mL (4.0-10.0) L 01/23/18 01:27 Ur Phencyclidine Scrn Negative (NEGATIVE) 01/23/18 05:00 Ur Amphetamines Screen Negative (NEGATIVE) 01/23/18 05:00 U Benzodiazepines Scrn Negative (NEGATIVE) 01/23/18 05:00 U Oth Cocaine Metabols Positive (NEGATIVE) H 01/23/18 05:00 U Cannabinoids Screen Negative (NEGATIVE) 01/23/18 05:00 Alcohol, Quantitative < 10 mg/dL (0-10) 01/23/18 01:27 HIV 1&2 Ag/Ab, 4th Gen Nonreactive (Nonreactive) 01/23/18 09:00 Ur L.pneumophila Ag Negative (NEGATIVE) 01/23/18 12:35 Attending/Attestation - Attestation I have personally seen and examined this patient.: Yes I have fully participated in the care of the patient.: Yes I have reviewed all pertinent clinical information, including history, physical exam and plan: Yes Notes (Text): 01/25/18 14:03 42 year old male with a past medical history significant for HTN, Depression, Schizophrenia, Seizure Disorder, Bipolar disorder I, Hepatitis C, and polysubstance abuse was admitted with Pneumonia. Patient left the hospital with out letting any one know. Prognosis is guarded. 01/25/18 14:05
[2018-01-23 17:00] LABS: FERRITIN 36.1 ng/mL
[2018-01-23] MEDS ORDERED: cefTRIAXone 1 gm 1 GM/100 ML BAG IVPB SCH (17:00)
[2018-01-23 17:30] LABS: FOLATE 15.3 ng/mL
[2018-01-23] MEDS ORDERED: Azithromycin 500MG/NS 250ml 500 MG/250 ML BAG IVPB SCH (18:00)
--- NOTE | 2018-01-24 14:14 | CARD ---
APPROVED REPORT EKG Measurement Heart [id number] [place] [id number] [id number] <Conclusion> Normal sinus rhythm Nonspecific T wave abnormality Abnormal ECG
== END 2018-01-23 14:50 | disposition left against medical advice (07) ==
LOC: ED 23:55 → ERH 01-23 04:14 → 3RNO 01-23 06:03
PROVIDERS: ADMIT Internal Medicine; ATTEND Internal Medicine
DX: J18.9 Pneumonia, unspecified organism (principal); R53.1 Weakness; I10 Essential (primary) hypertension; G40.909 Epilepsy, unspecified, not intractable, without status epilepticus; F20.9 Schizophrenia, unspecified; B19.20 Unspecified viral hepatitis C without hepatic coma; F31.9 Bipolar disorder, unspecified; F11.10 Opioid abuse, uncomplicated
CPT/HCPCS: 71045; 71250; 80053; 80156; 80320; 80324; 80345; 80346; 80349; 80353; 80358; 80361; 82550; 82553; 82607; 82728; 82746; 83540; 83550; 83992; 84145; 85025; 85027; 85044; 85651; 86738; 87040; 87389; 87449; 93005; 96365; 96372; 96375; 99285; G0378; J0456; J0696; J1644

== ENCOUNTER 2018-02-03 23:59 | Emergency (ER) | payer SELFPAY ==
[2018-02-04] VITALS: BMI 25.0
[2018-02-04] MEDS ORDERED: Naloxone 0.4 mg/ml Inj (Adult) IVP STA (00:44)
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
[2018-02-04 01:26] LABS: URINE APPEARANCE CLEAR (CLEAR); URINE BILIRUBIN NEGATIVE (NEGATIVE); URINE BLOOD NEGATIVE (NEGATIVE); URINE COLOR YELLOW (YELLOW); URINE GLUCOSE (UA) NEGATIVE (NEGATIVE); URINE LEUKOCYTE ESTERASE NEGATIVE Leu/uL (NEGATIVE); URINE PROTEIN NEGATIVE mg/dL (<30 mg/dL); URINE UROBILINOGEN 0.2 E.U./dL (<1 E.U./dL)
[2018-02-04 02:03] LABS: BARBITURATES, UR POSITIVE (NEGATIVE); BENZODIAZEPINES, UR NEGATIVE (NEGATIVE); OPIATES, UR POSITIVE (NEGATIVE); PHENCYCLIDINE, UR NEGATIVE (NEGATIVE)
[2018-02-04 03:10] VITALS: BP 118/72; PULSE 82; RESP 18; TEMP 98.2; O2SAT 99
== END 2018-02-04 02:00 | disposition home or self-care (01) ==
LOC: ED 23:59
DX: F19.10 Other psychoactive substance abuse, uncomplicated (principal); F17.210 Nicotine dependence, cigarettes, uncomplicated; I10 Essential (primary) hypertension; F20.9 Schizophrenia, unspecified
CPT/HCPCS: 81003; 96374; 99282; G0480; J2310

== ENCOUNTER 2018-04-16 01:04 | Inpatient (IN) | payer MEDICAID ==
[2018-04-16 01:05] VITALS: BMI 25.0
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
[2018-04-16 03:49] LABS: URINE BILIRUBIN NEGATIVE (NEGATIVE); URINE BLOOD NEGATIVE (NEGATIVE); URINE GLUCOSE (UA) NEGATIVE (NEGATIVE); URINE LEUKOCYTE ESTERASE NEGATIVE Leu/uL (NEGATIVE); URINE PROTEIN NEGATIVE mg/dL (<30 mg/dL); URINE UROBILINOGEN 0.2 E.U./dL (<1 E.U./dL)
[2018-04-16 03:50] LABS: URINE APPEARANCE CLEAR (CLEAR); URINE COLOR YELLOW (YELLOW)
[2018-04-16 04:04] LABS: BARBITURATES, UR POSITIVE (NEGATIVE); BENZODIAZEPINES, UR NEGATIVE (NEGATIVE); OPIATES, UR POSITIVE (NEGATIVE); PHENCYCLIDINE, UR NEGATIVE (NEGATIVE)
[2018-04-16 05:42] LABS: ACETAMINOPHEN < 10.0 ug/ml (10.0-20.0); ALB/GLOB RATIO 1.2 (1.1-1.8); ALBUMIN 3.6 g/dL (3.0-4.8); ALT/SGPT 27 U/L (7-56); AST/SGOT 30 U/L (17-59); BLOOD UREA NITROGEN 22 mg/dL (7-21); CALCIUM 8.8 mg/dL (8.4-10.5); GFR NON-AFRICAN AMERICAN > 60; SALICYLATE < 1 mg/dL (2.0-20.0)
[2018-04-16 05:52] LABS: BASO # 0.02 K/mm3 (0.0-2.0); BASO % 0.4 % (0.0-3.0); EOS # 0.2 (0.0-0.7); EOS % 4.1 % (1.5-5.0); GRAN # 2.94 (1.4-6.5); GRAN % 52.4 % (50.0-68.0); LYMPH # 1.9 (1.2-3.4); LYMPH % 34.4 % (22.0-35.0); MEAN CELL VOLUME 83.8 fl (80.0-105.0); MEAN CORPUSCULAR HEMOGLOBIN 27.9 pg (25.0-35.0); MEAN CORPUSCULAR HGB CONC 33.3 g/dl (31.0-37.0); MONO # 0.5 (0.1-0.6); MONO % 8.7 % (1.0-6.0); RBC 3.94 10^6/uL (3.5-6.1); RED CELL DISTRIBUTION WIDTH 15.5 % (11.5-14.5); WHITE BLOOD COUNT 5.6 10^3/ul (4.5-11.0)
--- NOTE | 2018-04-16 08:13 | ED PDOC ---
Physical Exam Vital Signs Reviewed: Yes Vital Signs Temp Pulse Resp BP Pulse Ox 04/16/18 07:35 97.3 F L 85 18 124/56 L 97 04/16/18 01:33 97.7 F 64 18 129/87 99 Temperature: Afebrile Blood Pressure: Normal Pulse: Regular Respiratory Rate: Normal Medical Decision Making ED Course and Treatment: Progress notes: 04/16/18 07:00 Case endorsed to me by Dr. Brandon for pending face to face evaluation with Dr. Avila. 04/16/18 07:33 Patient has been seen by Dr. Avila, who would like patient to get Haldol and Ativan for sedation before admission to voluntary unit. 04/16/18 15:[address] avila - RAD Interpretation Radiology Orders: 04/16/18 01:49 CHEST PORTABLE [RAD] Stat - Medication Orders Current Medication Orders: Haloperidol Lactate (Haldol) 5 mg IM STAT STA PRN Reason: Protocol Stop: 04/16/18 08:12 Lorazepam (Ativan) 2 mg IM ONCE ONE PRN Reason: Protocol Stop: 04/16/18 08:12 - Scribe Statement The provider has reviewed the documentation as recorded by the Scribe Elizabeth Bradshaw All medical record entries made by the Scribe were at my direction and personally dictated by me. I have reviewed the chart and agree that the record accurately reflects my personal performance of the history, physical exam, medical decision making, and the department course for this patient. I have also personally directed, reviewed, and agree with the discharge instructions and disposition. Disposition/Present on Arrival - Present on Arrival Any Indicators Present on Arrival: No History of DVT/PE: No History of Uncontrolled Diabetes: No Urinary Catheter: No History of Decub. Ulcer: No History Surgical Site Infection Following: None - Disposition Have Diagnosis and Disposition been Completed?: Yes Diagnosis: Drug abuse Disposition: HOSPITALIZED Disposition Time: 15:05 Condition: GOOD
--- NOTE | 2018-04-16 08:55 | RAD ---
Date of service: 04/16/2018 HISTORY: pes COMPARISON: Comparison chest dated 01/23/2018 FINDINGS: LUNGS: No active pulmonary disease. PLEURA: No significant pleural effusion identified, no pneumothorax apparent. CARDIOVASCULAR: Normal. OSSEOUS STRUCTURES: No significant abnormalities. VISUALIZED UPPER ABDOMEN: Normal. OTHER FINDINGS: None. IMPRESSION: No active disease.
[2018-04-16 11:14] VITALS: O2SAT 100
--- NOTE | 2018-04-16 11:19 | CARD ---
APPROVED REPORT Date of service: 04/16/2018 EKG Measurement Heart [id number] <Conclusion> Normal sinus rhythm Nonspecific ST abnormality Abnormal ECG
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
[2018-04-16] MEDS ORDERED: Alum-Mag Hydrox-Simethicone Susp (30 mL) PO PRN (12:23)
[2018-04-16] MEDS ORDERED: Magnesium Hydroxide Susp 30 ml UD PO PRN (12:23)
[2018-04-16 13:19] LABS: HDL CHOLESTEROL 66 mg/dL (29-60)
[2018-04-16 13:30] LABS: LDL CHOLESTEROL 54 mg/dL (0-129)
[2018-04-16] MEDS: Divalproex 500 mg DR(BID formulation) PO SCH (18:25)
--- NOTE | 2018-04-16 22:24 | CON ---
Copied To: Gena Avila MD Attending MD: Gena Avila MD DATE: 04/16/2018 HISTORY OF PRESENT ILLNESS: The patient is a 42-year-old single -[place] male with a reported history of schizophrenia, depression versus schizoaffective disorder as well as polysubstance dependence including cocaine, barbiturates and opiates which he has been tested positive for today, who came into the ER requesting to get detox, as there were no detox that is available. Patient also reported that he is depressed and suicidal, and requested psychiatric admission. Of note, the patient was informed that detox services were not available in the psychiatric unit, and still indicated that he was depressed and wanted help with his depression. He is notably irritable, labile, at times angry, and required medications in the ER because he was threatening towards the junior sales assistant because of repeated needle punctures, as he was a difficult stick. I attempted to intubate the patient at bedside and remained irritable, although not threatening, he did raise his voice and was very unhappy about the questions that were required for him to answer in order to be psychiatrically evaluated. This provider could not look whole psychiatric evaluation of him because he was quite reluctant and could self-escalate easily. The patient does admit that he was using heroin prior to admission; however, denies any other drug use, although this is clearly false, as UDS is positive for barbiturates and cocaine. He reports he is , he is tired, he is overwhelmed easily, presently edgy and he just wants to be left alone. The patient would not answer questions about whether he is hallucinating, but he does not appear to be hallucinating at all in thought process, although is disorganized that appears to be secondary to withdrawal from drugs as well as crashing from cocaine. The patient continued to request psychiatric admission and has signed in voluntarily. This provider checked prior records, and although he has had periods of agitation, irritability and anger, and disrespect towards staff members, there are no documented incidences of actual violence or assault on the unit. The patient is warned to keep calm as possible while on the psychiatric unit in order to ensure therapeutic benefit for other patients as well as for himself. Of note, the patient indicated that he was ALLERGIC TO HALDOL AND PROLIXIN. PSYCHIATRIC HISTORY: The patient has numerous psychiatric admissions within the [facility], and his most recent one was in 10/2017, and he presented disorganized, agitated, irritable and likely withdrawing from drugs, as he reported using a whole pack of heroin daily. This caused him to be paranoid at that time. He was discharged with a diagnosis of schizoaffective disorder and opiate dependence, and given a prescription for Tegretol 200 b.i.d., Depakote 500 b.i.d., and Seroquel 200 at bedtime, which he did not continue with, as when he was discharged, he has not been following up with aftercare recommendations in general. does not have any reported history of suicide attempts. The patient refused when I interviewed him at the bedside this morning. SOCIAL HISTORY: The patient reports that he was born and raised in [place]. He is single. He has 4 kids. He lives with his cousin. He has a history of smoking heroin, cocaine, multiple detoxes, and has history of agitation on the unit, and if I remember correctly, the patient has been involuntarily hospitalized at [facility] in the past. Vital signs were reviewed as well as recent labs. IMPRESSION: Polysubstance dependency, substance-induced mood disorder and psychotic disorder. The patient does not appear to be affected of schizoaffective disorder if anything. It all appears to be substance related. However, the patient does have personality disorder which can lead to very poor decision making and impulse control issues, especially in the context of ongoing drug use and withdrawal. RECOMMENDATIONS: At this time, he will be started on Seroquel 50 mg b.i.d. and 100 mg at bedtime as well as Depakote 500 mg in the a.m. and at bedtime, and Tegretol 100 mg a.m. and at bedtime as well as Ativan 1 mg a.m. and at bedtime to help with mood control and impulse control, as the patient is quite irritable and can escalate easily. This will also help with hallucinations or paranoia, which patient might also have secondary to the drug abuse. The patient will be admitted voluntarily and p.r.n.s will be given for outburst of anger or threatening behavior on the psychiatric unit. Gena Avila MD [facility] # [id number]
[2018-04-17] MEDS: Divalproex 500 mg DR(BID formulation) PO SCH ×2 (08:03→20:14)
[2018-04-17 09:16] LABS: GLUCOSE,FASTING 214 mg/dL (65-110); HDL CHOLESTEROL 73 mg/dL (29-60)
[2018-04-17 09:27] LABS: LDL CHOLESTEROL 72 mg/dL (0-129)
[2018-04-17 09:42] LABS: FREE T4 1.07 ng/dL (0.78-2.19)
[2018-04-17] MEDS ORDERED: DiphenhydrAMINE 50 mg/ml Inj IM PRN (11:16)
--- NOTE | 2018-04-17 14:24 | PCM.PSYCH ---
Initial Psychiatric Evaluation - Initial Psychiatric Evaluation Type of Admission: Voluntary Legal Status: Capacity (patient has capacity to sign consent for treatment) Chief Complaint (in patient's own words): "I am not a prisoner, I want to go home" Patient's Reaction to Hospitalization: patient was admitted to the psychiatric inpatient unit for evaluation and stabilization of depressive symptoms psychosis, Possible suicidal ideation. History of Present Illness and Precipitating Events: shortly patient is a 41 year old male, with history of schizophrenia spectrum disorder, traumatic brain injury, polysubstance abuse and dependence, chronic noncompliance with the medications and follow-up appointments, patient is currently homeless, presented in ED requesting detox from the [facility], when pt got to know that no detox bed available, pt insisted to be admitted to the psychiatric inpatient unit for evaluation of depressive symptoms, med management. In ED pt almost attacked a turpentine farmer, impulses were unpredictable. pt requires further stabilization in inpatient unit. pt was seen and examined at the treatment team meeting, pt presented with poor personal hygiene, was unsteady, seems to be under the influence of drugs. pt had poor ADLs. pt presented to be confused, disorganized, very concrete thought process, was not able to comprehend the treatment plan. pt was keep asking the same question all over and over again. pt said he suffers from depression all his life, pt denied that he feels hopeless or helpless. pt also denied thoughts of harming self or others. pt became angry and loud, punched the wall, needed to be medicated with IM. ast admission pt presented with similar symptoms: flat affect, patient has cognitive limitations due to traumatic brain injury, there is no option to have meaningful conversation. Patient had severe thought blocking, concrete thought process, as well as poverty of speech and poverty of thoughts, poor impulse control. pt is a poor historian. pt said that he is a cutter, multiple old scars on his UE. as per previous admission note: Mother Nakia states that pt has a TBI, and is sometimes forgetful, and goes through bouts of depression. pt was not able to answer if he hears voices or seeing things, but appeared to be internally preoccupied. pt has h/o command type hallucinations as per [facility]. PMH History of seizures, HTN patient smokes about a pack a day, nicotine patch offered, counseling provided. pt said he uses heroin daily, about 4-5 bags a day, pt said he is snorting, but in ED said he uses IV. ED PES pt stated: "I'm not doing good at all. I am suffering from a great deal of depression and heroin addiction. Psychiatrically I am not stable, I am not doing well, I don't trust myself. I started to cut again today. I am suicidal. I am looking for help for this depression and addiction." 04/16/18 05:17 04/16/18 05:17 Lab Results 04/17/18 09:00: Carbamazepine 4 04/17/18 09:00: Free T4 1.07, TSH 3rd Generation 0.18 L 04/17/18 09:00: Fasting Glucose 214 H, Triglycerides 116, Cholesterol 188, LDL Cholesterol Direct 72, HDL Cholesterol 73 H 04/16/18 05:30: Phenytoin < 3 L 04/16/18 05:17: Alcohol, Quantitative < 10 04/16/18 05:17: Salicylates < 1 L, Acetaminophen < 10.0 L 04/16/18 05:17: Sodium 144, Potassium 3.9, Chloride 109 H, Carbon Dioxide 27, Anion Gap 12, BUN 22 H, Creatinine 0.9, Est GFR ( Amer) > 60, Est GFR ( Non-Af Amer) > 60, Random Glucose 120 H, Calcium 8.8, Magnesium 2.0, Total Bilirubin 0.2, AST 30, ALT 27, Alkaline Phosphatase 93, Total Protein 6.7, Albumin 3.6, Globulin 3.1, Albumin/Globulin Ratio 1.2 04/16/18 05:17: WBC 5.6 D, RBC 3.94, Hgb 11.0 L, Hct 33.0 L, MCV 83.8, MCH 27.9 , MCHC 33.3, RDW 15.5 H, Plt Count 222, MPV 11.0, Gran % 52.4, Lymph % (Auto) 34.4, Dane % (Auto) 8.7 H, Eos % (Auto) 4.1, Baso % (Auto) 0.4, Gran # 2.94, Lymph # (Auto) 1.9, Dane # (Auto) 0.5, Eos # (Auto) 0.2, Baso # (Auto) 0.02 04/16/18 05:00: Hemoglobin A1c 5.5 04/16/18 05:00: Triglycerides 98, Cholesterol 151, LDL Cholesterol Direct 54, HDL Cholesterol 66 H 04/16/18 03:30: Urine Opiates Screen Positive H, Urine Methadone Screen Negative , Ur Barbiturates Screen Positive H, Ur Phencyclidine Scrn Negative, Ur Amphetamines Screen Negative, U Benzodiazepines Scrn Negative, U Oth Cocaine Metabols Positive H, U Cannabinoids Screen Negative 04/16/18 03:30: Urine Color Yellow, Urine Appearance Clear, Urine pH 6.0, Ur Specific [place] 1.020, Urine Protein Negative, Urine Glucose (UA) Negative, Urine Ketones Negative, Urine Blood Negative, Urine Nitrate Negative, Urine Bilirubin Negative, Urine Urobilinogen 0.2, Ur Leukocyte Esterase Negative Vital Signs Temp Pulse Resp BP Pulse Ox 04/17/18 07:00 96.7 F L 73 20 129/99 H 04/16/18 16:00 64 124/91 H 04/16/18 14:21 18 04/16/18 11:20 97.6 F 73 18 120/82 04/16/18 11:13 98 F 76 129/53 L 100 04/16/18 10:53 98.3 F 88 19 125/63 98 04/16/18 07:35 97.3 F L 85 18 124/56 L 97 04/16/18 01:33 97.7 F 64 18 129/87 99 [facility] pharmacy was contacted [phone] patient was on the following medications: Depakote 500 mg 3 times a day filled in March 10 by Keppra 500 mg 2 pills twice a day Field on March 10 by MiraLAX, senna daily Phenobarbital 32.4 twice a day filled in April 05 Lisinopril 10 mg daily field in February 07 by Carbamazepine 200 mg 3 times a day filled in April 05 by Current Medications: Active Medications Generic Name Dose Route Start Last Admin Trade Name Freq PRN Reason Stop Dose Admin Acetaminophen 650 mg 04/16/18 12:20 Tylenol 325mg Tab PO Q6 PRN Pain, moderate (4-7) Al Hydrox/Mg Hydrox/Simethicone 30 ml 04/16/18 12:23 Maalox Plus 30 Ml PO DAILY PRN Indigestion / Heartburn Carbamazepine 100 mg 04/16/18 10:18 04/17/18 10:00 Tegretol PO 100 mg [facility] JANINE Administration Protocol Clonidine HCl 0.1 mg 04/17/18 09:38 Catapres PO BID PRN opioid withdrawals Diphenhydramine HCl 50 mg 04/17/18 11:16 Benadryl IM Q6H PRN Agitation Divalproex Sodium 500 mg 04/16/18 16:00 04/17/18 08:[address](*Bid*) PO 500 mg BID JANINE Administration Haloperidol Lactate 5 mg 04/17/18 11:14 Haldol IM Q6H PRN Agitation Protocol Ibuprofen 400 mg 04/17/18 09:53 Motrin Tab PO Q6 PRN Pain, moderate (4-7) Lorazepam 1 mg 04/16/18 22:00 04/17/18 10:00 Ativan PO 1 mg [facility] JANINE Administration Protocol Lorazepam 2 mg 04/17/18 11:16 Ativan IM Q6H PRN Agitation Magnesium Hydroxide 30 ml 04/16/18 12:23 Milk Of Magnesia PO DAILY PRN Constipation Nicotine 1 patch 04/17/18 10:00 04/17/18 10:41 Nicoderm Cq TD 1 patch DAILY JANINE Administration Quetiapine Fumarate 50 mg 04/16/18 16:00 04/17/18 08:03 Seroquel PO 50 mg BID JANINE Administration Protocol Quetiapine Fumarate 100 mg 04/16/18 22:00 04/16/18 22:50 Seroquel PO 100 mg HS JANINE Administration Protocol Tramadol HCl 50 mg 04/17/18 09:49 04/17/18 10:30 Ultram PO 50 mg TID PRN Administration severe pain >=8/10 Past Psychiatric History - Past Psychiatric History Previous Treatment History: Inpatient Prior Professional Help: see HPI Prior Psychiatric Treatment: see HPI At what hospital: see HPI Duration: see HPI Nature of Treatment: see HPI Explanation of prior treatment: see HPI History of Abuse: see HPI History of ETOH/Drug Use: see HPI History of Family Illness: see HPI Pertinent Medical Hx (Current Medical&Sleep Prob, Allergies): Allergies Allergy/AdvReac Type Severity Reaction Status Date / Time lactose Allergy DIARRHEA Verified 04/17/18 00:14 fluphenazine [From Prolixin] AdvReac SWELLING Verified 04/17/18 00:14 haloperidol [From Haldol] AdvReac NAUSEA Verified 04/17/18 00:14 Lisinopril [Zestril] 10 mg PO DAILY 06/05/17 carBAMazepine [Tegretol] 200 mg PO BID #30 tab 11/24/17 Phenobarbital 100 mg PO DAILY 12/16/17 Review of Systems - Review of Systems Systems not reviewed;Unavailable: Acuity of Condition - EENT Eyes: As Per HPI Ears: As Per HPI Nose/Mouth/Throat: As Per HPI - Cardiovascular Cardiovascular: As Per HPI - Respiratory Respiratory: As Per HPI - Gastrointestinal Gastrointestinal: As Per HPI - Genitourinary Genitourinary: As Per HPI - Reproductive: Male Reproductive:Male: As Per HPI - Musculoskeletal Musculoskeletal: As Par HPI - Integumentary Integumentary: As Per HPI - Neurological Neurological: As Per HPI - Psychiatric Psychiatric: As Per HPI - Endocrine Endocrine: As Per HPI - Hematologic/Lymphatic Hematologic: As Per HPI Mental Status Examination - Personal Presentation Personal Presentation: Looks stated age - Affect Affect: Flat - Motor Activity Motor Activity: Psychomotor Agitation - Reliability in Providing Information Reliability in Providing Information: Poor, due to alteration in thoughts, Poor , due to altered mood, Poor, due to cognitve impairment - Speech Speech: Disorganized, Other (concrete) - Mood Mood: Depressed (and angry) - Formal Thought Process Formal Thought Process: Other (denied but presented to be disorganized) - Obsessions/Compulsions Obsessions: None Compulsions: None - Cognitive Functions Orientation: Person, Place Attention/Concentration: Easily distracted Abstract Thinking: [place] Judgement: Intact, as evidence by: Insight regarding need for hospitalization - Risk Risk: Withdrawal, Self-mutilation, Diminished functioning - Limitations Limitations: Living alone (homeless, TBI, substance abuse), Other DSM 5 DX - DSM 5 DSM 5 Diagnosis: psychosis NOS schizophrenia as per h/o r/o substance induced psychosis polysubstance abuse and dependence r/o impulse control disorder - Recommended/Plan of Treatment Treatment Recommendations and Plan of Treatment: Milieu/structure/supportive therapy Medical consult if required SW consultation for discharge plan and social issues Med management, all meds were confirmed and resumed [facility] pharmacy was contacted [phone] Depakote 500 mg 3 times a day will be resumed Keppra 500 mg 2 pills twice a day resumed Phenobarbital 32.4 twice a day resumed Lisinopril 10 mg daily resumed Carbamazepine 200 mg 3 times a day resumed PRN meds will monitor vitals, PRN meds for opioid withdrawals started Family involvement Follow up on labs Will monitor closely Pt was educated about risk/benefits and alternatives of medications, coping strategies (safety plan, suicide prevention), relapse prevention, importance of follow up with psychiatrist and therapist, stay away from drugs/alcohol/smoking Projected ELOS: 7days Prognosis: guarded Discharge Plan and Discharge Criteria: Pt will be not depressed or manic, will be more hopeful, will be not psychotic or anxious, will be not having thoughts of harming self or others, will be tolerating medications well, will not have major side effects, will be able to function, will not pose threat to self or others. - Smoking Cessation Smoking Cessation Initiated: Yes
[2018-04-18] MEDS: Divalproex 500 mg DR(BID formulation) PO SCH ×3 (09:45→17:51)
--- NOTE | 2018-04-18 13:27 | PCM.FALL ---
Post Fall Progress Note - Post Fall Fall Date: 04/18/18 Fall Time: 13:08 Description of Fall: Per nursing staff, patient is ataxic and confused at baseline. Patient was walking down [address]enas and fell, which was witnessed by staff. Staff states that they did not see him hit his head. Patient denies dizziness, LOC, FOOTE, or change in vision prior to fall. Patient unsure of how he fell, likely 2/2 to ataxia per nursing staff. Patient denies hitting his head. Patient states he hit his left elbow when he fell, but denies pain. Patient denied CP, SOB, n/v/d, abdominal pain, fever, or chills. - Post Fall Exam Vital Sign: Temp Pulse Resp BP Pulse Ox 97.7 F 88 20 133/93 H 100 04/18/18 07:15 04/18/18 09:50 04/18/18 07:15 04/18/18 09:50 04/16/18 11:13 Skull Exam: Negative for: Scalp wound, Scalp hematoma, Scalp depression, Ridge in skull Eye Exam: Negative for: Pupils equal, Pupils reactive Ear Exam: Negative for: Discharge, Bleeding Nose Exam: Negative for: Discharge, Bleeding Skin Exam: Negative for: Colour, Lacerations, Grazes, Bruising Mouth Exam: Negative for: Tongue bitten, Teeth dislodge Neck Exam: Negative for: Tenderness, Tingling, Weakness Spinal Exam: Negative for: Tenderness, Tingling, Weakness Chest Exam: Negative for: Difficulty breathing, Tenderness in collar bones, Tenderness in ribs Abdomen Exam: Negative for: Tenderness Pelvic Exam: Negative for: Tenderness, Hematuria Arm Exam: Positive for: Deformity (abrasion left elbow). Negative for: Alteration in range of movement (sensation and strength equal and intact b/l UE) Leg Exam: Negative for: Deformity, Alteration in range of movement Impression/Plan: 42 yo M admitted to psychiatry unit with fall, likely mechanical. Plan: - Vitals reviewed, stable - Blood glucose WNL - TDAP up to date - Clean abrasion, apply dressing - Attending notified
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
[2018-04-18 18:32] LABS: HEMOGLOBIN 13.1 g/dL (14.0-18.0); MEAN CELL VOLUME 82.8 fl (80.0-105.0); MEAN CORPUSCULAR HEMOGLOBIN 27.8 pg (25.0-35.0); MEAN CORPUSCULAR HGB CONC 33.6 g/dl (31.0-37.0); MEAN PLATELET VOLUME 10.8 fl (7.0-11.0); RBC 4.71 10^6/uL (3.5-6.1); RED CELL DISTRIBUTION WIDTH 15.5 % (11.5-14.5); WHITE BLOOD COUNT 5.3 10^3/ul (4.5-11.0)
[2018-04-18 18:50] LABS: ALB/GLOB RATIO 1.2 (1.1-1.8); ALBUMIN 4.2 g/dL (3.0-4.8); ALT/SGPT 30 U/L (7-56); AST/SGOT 44 U/L (17-59); BLOOD UREA NITROGEN 16 mg/dL (7-21); CALCIUM 9.3 mg/dL (8.4-10.5); GFR NON-AFRICAN AMERICAN > 60
[2018-04-19 08:30] LABS: URINE BILIRUBIN NEGATIVE (NEGATIVE); URINE BLOOD NEGATIVE (NEGATIVE); URINE GLUCOSE (UA) NEGATIVE (NEGATIVE); URINE LEUKOCYTE ESTERASE NEGATIVE Leu/uL (NEGATIVE); URINE PROTEIN NEGATIVE mg/dL (<30 mg/dL)
[2018-04-19 08:31] LABS: URINE APPEARANCE CLEAR (CLEAR); URINE COLOR YELLOW (YELLOW)
--- NOTE | 2018-04-19 09:10 | CP.PCM.PN ---
<Taina Mujica - Last Filed: 04/19/18 11:27> Subjective - Date & Time of Evaluation Date of Evaluation: 04/19/18 Time of Evaluation: 09:07 - Subjective Subjective: Taina Mujica PGY1 Progress Note for Dr. Mendoza Mr. Louie was evaluated at bedside this morning. He did not have any acute complaints today. He denied any dizziness, shortness of breath, chest pain, abdominal pain, nausea or vomiting. He was AAO x2 today, to person and place. He reported feeling better than yesterday, and he stated he wanted to enter a program to stop using heroin. Objective - Vital Signs/Intake and Output Vital Signs (last 24 hours): Temp Pulse Resp BP Pulse Ox 97.8 F 78 17 115/82 100 04/19/18 07:01 04/19/18 07:01 04/19/18 07:01 04/19/18 07:01 04/16/18 11:13 - Medications Medications: Current Medications Acetaminophen (Tylenol 325mg Tab) 650 mg PO Q6 PRN PRN Reason: Pain, moderate (4-7) Al Hydrox/Mg Hydrox/Simethicone (Maalox Plus 30 Ml) 30 ml PO DAILY PRN PRN Reason: Indigestion / Heartburn Alprazolam (Xanax) 0.5 mg PO TID PRN; Protocol PRN Reason: Anxiety Carbamazepine (Tegretol) 200 mg PO TID [facility] PRN Reason: Protocol Last Admin: 04/18/18 17:50 Dose: 200 mg Clonidine HCl (Catapres) 0.1 mg PO BID PRN PRN Reason: opioid withdrawals Last Admin: 04/19/18 05:07 Dose: 0.1 mg Diphenhydramine HCl (Benadryl) 50 mg IM Q6H PRN PRN Reason: Agitation Divalproex Sodium (Depakote Dr(*Bid*)) 500 mg PO TID [facility] Last Admin: 04/18/18 17:51 Dose: 500 mg Ibuprofen (Motrin Tab) 400 mg PO Q6 PRN PRN Reason: Pain, moderate (4-7) Levetiracetam (Keppra) 1,000 mg PO BID [facility] Last Admin: 04/18/18 17:50 Dose: 1,000 mg Lisinopril (Zestril) 10 mg PO DAILY [facility] Last Admin: 04/18/18 09:47 Dose: 10 mg Lorazepam (Ativan) 1 mg PO AMHS [facility] PRN Reason: Protocol Last Admin: 04/18/18 22:51 Dose: Not Given Lorazepam (Ativan) 2 mg IM Q6H PRN PRN Reason: Agitation Magnesium Hydroxide (Milk Of Magnesia) 30 ml PO DAILY PRN PRN Reason: Constipation Nicotine (Nicoderm Cq) 1 patch TD DAILY [facility] Last Admin: 04/18/18 09:46 Dose: 1 patch Phenobarbital (Phenobarbital Tab) 32.4 mg PO BID [facility] Last Admin: 04/18/18 17:52 Dose: 32.4 mg Quetiapine Fumarate (Seroquel) 100 mg PO HS [facility] PRN Reason: Protocol Last Admin: 04/18/18 22:51 Dose: Not Given Quetiapine Fumarate (Seroquel) 50 mg PO DAILY [facility] PRN Reason: Protocol Tramadol HCl (Ultram) 50 mg PO TID PRN PRN Reason: severe pain >=8/10 Last Admin: 04/19/18 05:08 Dose: 50 mg Ziprasidone (Geodon Cap) 20 mg PO Q6H PRN; Protocol PRN Reason: Agitation Last Admin: 04/18/18 11:39 Dose: 20 mg Ziprasidone (Geodon Inj) 20 mg IM Q6H PRN; Protocol PRN Reason: Agitation - Labs Labs: 04/18/18 18:20 04/18/18 18:33 - Constitutional Appears: Well, No Acute Distress - Head Exam Head Exam: ATRAUMATIC, NORMOCEPHALIC - Eye Exam Eye Exam: EOMI, PERRL - Respiratory Exam Respiratory Exam: Clear to Ausculation Bilateral, NORMAL BREATHING PATTERN - Cardiovascular Exam Cardiovascular Exam: REGULAR RHYTHM, +S1, +S2 - GI/Abdominal Exam GI & Abdominal Exam: Soft, Normal Bowel Sounds. absent: Distended, Firm, Tenderness - Extremities Exam Extremities Exam: absent: Pedal Edema Additional comments: linear scars on b/l forearms - Neurological Exam Neurological Exam: absent: Abnormal Gait Additional comments: AAOx2, to person and place - Psychiatric Exam Psychiatric exam: absent: Agitated, Anxious Assessment and Plan - Assessment and Plan (Free Text) Assessment: 42yo M PMHx schizophrenia, seizures, hepatitis C, HTN, substance abuse presented to ED for heroin detox, admitted for care of psychiatric issues. Consulted for altered mental status. Plan: Altered Mental Status - pt AAO x2 today, to person and place, improved from yesterday - pt able to communicate more clearly today, not agitated - gait no longer ataxic - fall precautions if gait disturbance returns Schizophrenia - continue medication optimization as per psychiatry H/o Seizure Disorder - continue current medication regimen H/o HTN - BP 115/82 today, controlled - continue to monitor Substance Abuse - UDS +opiates, barbiturates, cocaine - monitor for withdrawal symptoms - counseled on substance abuse cessation Dispo: We will be signing off at this time, as there are no acute medical issues to be managed. Please reconsult if necessary. Case Reviewed with Dr. Mendoza <Hayes Mendoza - Last Filed: 04/20/18 14:12> Objective - Vital Signs/Intake and Output Vital Signs (last 24 hours): Temp Pulse Resp BP Pulse Ox 97.6 F 74 20 117/89 100 04/20/18 07:26 04/20/18 09:14 04/20/18 07:26 04/20/18 09:14 04/16/18 11:13 - Medications Medications: Current Medications Acetaminophen (Tylenol 325mg Tab) 650 mg PO Q6 PRN PRN Reason: Pain, moderate (4-7) Al Hydrox/Mg Hydrox/Simethicone (Maalox Plus 30 Ml) 30 ml PO DAILY PRN PRN Reason: Indigestion / Heartburn Alprazolam (Xanax) 0.5 mg PO TID [facility] PRN Reason: Protocol Last Admin: 04/20/18 12:27 Dose: 0.5 mg Carbamazepine (Tegretol) 200 mg PO TID [facility] PRN Reason: Protocol Last Admin: 04/20/18 12:27 Dose: 200 mg Clonidine HCl (Catapres) 0.1 mg PO BID PRN PRN Reason: opioid withdrawals Last Admin: 04/19/18 05:07 Dose: 0.1 mg Diphenhydramine HCl (Benadryl) 50 mg IM Q6H PRN PRN Reason: Agitation Divalproex Sodium (Jason Unger(*Bid*)) 500 mg PO TID [facility] Last Admin: 04/20/18 12:27 Dose: 500 mg Ibuprofen (Motrin Tab) 400 mg PO Q6 PRN PRN Reason: Pain, moderate (4-7) Levetiracetam (Keppra) 1,000 mg PO BID [facility] Last Admin: 04/20/18 09:14 Dose: 1,000 mg Lisinopril (Zestril) 10 mg PO DAILY [facility] Last Admin: 04/20/18 09:14 Dose: 10 mg Lorazepam (Ativan) 2 mg IM Q6H PRN PRN Reason: Agitation Magnesium Hydroxide (Milk Of Magnesia) 30 ml PO DAILY PRN PRN Reason: Constipation Nicotine (Nicoderm Cq) 1 patch TD DAILY [facility] Last Admin: 04/20/18 09:17 Dose: 1 patch Phenobarbital (Phenobarbital Tab) 32.4 mg PO BID [facility] Last Admin: 04/20/18 09:17 Dose: 32.4 mg Quetiapine Fumarate (Seroquel) 100 mg PO HS [facility] PRN Reason: Protocol Last Admin: 04/19/18 21:34 Dose: 100 mg Quetiapine Fumarate (Seroquel) 50 mg PO DAILY [facility] PRN Reason: Protocol Last Admin: 04/20/18 09:18 Dose: 50 mg Tramadol HCl (Ultram) 50 mg PO TID PRN PRN Reason: severe pain >=8/10 Last Admin: 04/20/18 02:26 Dose: 50 mg Ziprasidone (Geodon Cap) 20 mg PO Q6H PRN; Protocol PRN Reason: Agitation Last Admin: 04/19/18 21:34 Dose: 20 mg Ziprasidone (Geodon Inj) 20 mg IM Q6H PRN; Protocol PRN Reason: Agitation - Labs Labs: 04/18/18 18:20 04/18/18 18:33 Attending/Attestation - Attestation I have personally seen and examined this patient.: Yes I have fully participated in the care of the patient.: Yes I have reviewed all pertinent clinical information, including history, physical exam and plan: Yes Notes (Text): 04/20/18 14:11 Attending note; Patient seen and examined with resident in psychiatric floor. Patient is alert. Awake. Oriented to place and time. Walking in the hallway. Patient apparently had a fall yesterday. No obvious injury noted. Patient is a 42 yo Male with PMH of schizophrenia, seizure, hep C, HTN, substance abuse that came to the ED seeking heroin detox. He was admitted to the psychiatry floor for management of his schizophrenia and substance abuse. Patient had episode of severe agitation on and off. Treated with restraints and sedatives. Currently alert and awake. Monitor closely. Continue medications per psychiatrist. History of long-standing opiate, cocaine abuse. Continue Ativan when necessary. Continue clonidine when necessary. Hypertension; continue lisinopril. Repeat labs normal. Fall precautions. Monitor patient closely. Patient is medically stable. Please reconsult as needed.
[2018-04-19] MEDS: Divalproex 500 mg DR(BID formulation) PO SCH ×3 (09:32→17:26)
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
[2018-04-20 07:27] VITALS: PULSE 74; RESP 20; TEMP 97.6
[2018-04-20] MEDS: Divalproex 500 mg DR(BID formulation) PO SCH ×2 (09:16→12:27)
[2018-04-20 09:33] VITALS: BP 117/89
--- NOTE | 2018-04-20 11:26 | PCM.PYCHPN ---
Psychiatric Progress Note - Psychiatric Progress Note Patient seen today, length of contact: 30min Patient Chief Complaint: "I am very appreciative for your help" Problems Identified/Issues Discussed: Suicide/ homicide prevention, past psychiatric h/o, current psychiatric symptoms , medical problems, risk/benefits and alternatives of medications, medications compliance, coping strategies, substance abuse h/o, relapse prevention, importance of follow up with psychiatrist and therapist, discharge plan. Medical Problems: TBI seizure disorder Diagnostic Results: 04/16/18 05:17 04/16/18 05:17 Lab Results 04/17/18 09:00: Carbamazepine 4 04/17/18 09:00: RPR Nonreactive 04/17/18 09:00: Free T4 1.07, TSH 3rd Generation 0.18 L 04/17/18 09:00: Fasting Glucose 214 H, Triglycerides 116, Cholesterol 188, LDL Cholesterol Direct 72, HDL Cholesterol 73 H 04/16/18 05:30: Phenytoin < 3 L 04/16/18 05:17: Alcohol, Quantitative < 10 04/16/18 05:17: Salicylates < 1 L, Acetaminophen < 10.0 L 04/16/18 05:17: Sodium 144, Potassium 3.9, Chloride 109 H, Carbon Dioxide 27, Anion Gap 12, BUN 22 H, Creatinine 0.9, Est GFR ( Amer) > 60, Est GFR ( Non-Af Amer) > 60, Random Glucose 120 H, Calcium 8.8, Magnesium 2.0, Total Bilirubin 0.2, AST 30, ALT 27, Alkaline Phosphatase 93, Total Protein 6.7, Albumin 3.6, Globulin 3.1, Albumin/Globulin Ratio 1.2 04/16/18 05:17: WBC 5.6 D, RBC 3.94, Hgb 11.0 L, Hct 33.0 L, MCV 83.8, MCH 27.9 , MCHC 33.3, RDW 15.5 H, Plt Count 222, MPV 11.0, Gran % 52.4, Lymph % (Auto) 34.4, [place] % (Auto) 8.7 H, Eos % (Auto) 4.1, Baso % (Auto) 0.4, Gran # 2.94, Lymph # (Auto) 1.9, [place] # (Auto) 0.5, Eos # (Auto) 0.2, Baso # (Auto) 0.02 04/16/18 05:00: Hemoglobin A1c 5.5 04/16/18 05:00: Triglycerides 98, Cholesterol 151, LDL Cholesterol Direct 54, HDL Cholesterol 66 H 04/16/18 03:30: Urine Opiates Screen Positive H, Urine Methadone Screen Negative , Ur Barbiturates Screen Positive H, Ur Phencyclidine Scrn Negative, Ur Amphetamines Screen Negative, U Benzodiazepines Scrn Negative, U Oth Cocaine Metabols Positive H, U Cannabinoids Screen Negative 04/16/18 03:30: Urine Color Yellow, Urine Appearance Clear, Urine pH 6.0, Ur Specific [place] 1.020, Urine Protein Negative, Urine Glucose (UA) Negative, Urine Ketones Negative, Urine Blood Negative, Urine Nitrate Negative, Urine Bilirubin Negative, Urine Urobilinogen 0.2, Ur Leukocyte Esterase Negative Vital Signs Temp Pulse Resp BP Pulse Ox 04/18/18 09:50 88 133/93 H 04/18/18 09:47 88 133/93 H 04/18/18 07:15 97.7 F 58 L 20 138/92 H 04/18/18 05:52 58 L 20 138/92 H 04/17/18 20:59 60 145/106 H 04/17/18 20:45 60 19 145/106 H 04/17/18 15:02 86 130/86 04/17/18 07:00 96.7 F L 73 20 129/99 H 04/16/18 16:00 64 124/91 H 04/16/18 14:21 18 04/16/18 11:20 97.6 F 73 18 120/82 04/16/18 11:13 98 F 76 129/53 L 100 04/16/18 10:53 98.3 F 88 19 125/63 98 04/16/18 07:35 97.3 F L 85 18 124/56 L 97 04/16/18 01:33 97.7 F 64 18 129/87 99 Vital Signs (72 hours) 04/16/18 04/16/18 04/16/18 10:53 11:13 11:20 Temperature 98.3 F 98 F 97.6 F Pulse Rate 88 76 73 Respiratory 19 18 Rate Blood Pressure 125/63 129/53 L 120/82 O2 Sat by Pulse 98 100 Oximetry 04/16/18 04/16/18 04/17/18 14:21 16:00 07:00 Temperature 96.7 F L Pulse Rate 64 73 Respiratory 18 20 Rate Blood Pressure 124/91 H 129/99 H O2 Sat by Pulse Oximetry 04/17/18 04/17/18 04/17/18 15:02 20:45 20:59 Temperature Pulse Rate 86 60 60 Respiratory 19 Rate Blood Pressure 130/86 145/106 H 145/106 H O2 Sat by Pulse Oximetry 04/18/18 04/18/18 04/18/18 05:52 07:15 09:47 Temperature 97.7 F Pulse Rate 58 L 58 L 88 Respiratory 20 20 Rate Blood Pressure 138/92 H 138/92 H 133/93 H O2 Sat by Pulse Oximetry 04/18/18 04/18/18 04/18/18 09:50 16:00 17:50 Temperature Pulse Rate 88 68 68 Respiratory Rate Blood Pressure 133/93 H 138/103 H 138/103 H O2 Sat by Pulse Oximetry 04/19/18 04/19/18 04/19/18 05:07 07:01 09:30 Temperature 97.8 F Pulse Rate 68 78 78 Respiratory 17 Rate Blood Pressure 138/103 H 115/82 115/82 O2 Sat by Pulse Oximetry Laboratory Results - last 24 hr 04/18/18 04/18/18 04/18/18 13:12 18:20 18:33 WBC 5.3 RBC 4.71 Hgb 13.1 L D Hct 39.0 L MCV 82.8 MCH 27.8 MCHC 33.6 RDW 15.5 H Plt Count 236 MPV 10.8 Sodium 146 Potassium 5.0 Chloride 107 Carbon Dioxide 30 Anion Gap 14 BUN 16 Creatinine 0.9 Est GFR ( Amer) > 60 Est GFR (Non-Af Amer) > 60 POC Glucose (mg/dL) 140 H Random Glucose 139 H Calcium 9.3 Total Bilirubin 0.3 AST 44 ALT 30 Alkaline Phosphatase 112 Total Protein 7.8 Albumin 4.2 Globulin 3.6 Albumin/Globulin Ratio 1.2 Urine Color Urine Appearance Urine pH Ur Specific [place] Urine Protein Urine Glucose (UA) Urine Ketones Urine Blood Urine Nitrate Urine Bilirubin Urine Urobilinogen Ur Leukocyte Esterase 04/19/18 08:20 WBC RBC Hgb Hct MCV MCH MCHC RDW Plt Count MPV Sodium Potassium Chloride Carbon Dioxide Anion Gap BUN Creatinine Est GFR ( Amer) Est GFR (Non-Af Amer) POC Glucose (mg/dL) Random Glucose Calcium Total Bilirubin AST ALT Alkaline Phosphatase Total Protein Albumin Globulin Albumin/Globulin Ratio Urine Color Yellow Urine Appearance Clear Urine pH 6.0 Ur Specific [place] 1.010 Urine Protein Negative Urine Glucose (UA) Negative Urine Ketones Negative Urine Blood Negative Urine Nitrate Negative Urine Bilirubin Negative Urine Urobilinogen 1.0 H Ur Leukocyte Esterase Negative DSM 5 Symptoms Update: shortly patient is a 41 year old male, with history of schizophrenia spectrum disorder, traumatic brain injury, polysubstance abuse and dependence, chronic noncompliance with the medications and follow-up appointments, patient is currently homeless, presented in ED requesting detox from the [facility], when pt got to know that no detox bed available, pt insisted to be admitted to the psychiatric inpatient unit for evaluation of depressive symptoms, med management. In ED pt almost attacked a various exceptionalities teacher, impulses were unpredictable. pt requires further stabilization in inpatient unit. pt was seen and examined at the treatment team meeting room, today, as per report pt was screened by [facility], was accepted by [facility] at present moment pt is waiting for bed awaiting. pt has TIBI, pt has very concrete thought process, pt was not able to process the tx plan and options what pt has, pt was advised that Neurology team will see him, but pt was keep asking about discharge, and 04/19 pt was in 4point restraint because pt was threatening, yelling, screaming, danger to self and others. pt was making statements that this tech writer is prejudice, she does not understand him, paranoid and disorganized. pt had episodes of confusion, agitation, very hard to adjust meds, when pt is medicated pt is very unsteady, but when under medicated, pt requires to be in restraint. this tech writer discussed case with 04/18/18, ordered CBC, CMP, UA to r/ o delirium, which came back WNL. DSM 5 Diagnosis: psychosis NOS schizophrenia as per h/o r/o substance induced psychosis polysubstance abuse and dependence r/o impulse control disorder Medication Change: No Medical Record Reviewed: Yes Mental Status Examination - Cognitive Function Orientation: Person, Place Memory: Impaired Attention: Poor Concentration: Poor Association: Loose Fund of Knowledge: Poor - Mood Mood: Depressed (and angry) - Affect Affect: Flat - Speech Speech: Slurred - Formal Thought Process Formal Thought Process: Other (denied but presented to be disorganized) - Suicidal Ideation Suicidal Ideation: No - Homicidal Ideation Homicidal Ideation: No Goal/Treatment Plan - Goal/Treatment Plan Need for Continued Stay: Remain at risks for inpatient hospitalization, Severe depression anxiety, Discharge may exacerbated symptoms Progress Toward Problem(s) and Goals/Treatment Plan: Milieu/structure/supportive therapy Medical consult appreciated Neurological consultation requested consultation for discharge plan and social issues Med management, all meds were confirmed and resumed [facility] pharmacy was contacted [phone] Depakote 500 mg 3 times a day will be resumed Keppra 500 mg 2 pills twice a day resumed Phenobarbital 32.4 twice a day resumed Lisinopril 10 mg daily resumed Carbamazepine 200 mg 3 times a day resumed PRN meds seroquel 50mg po daily and 100mg hs for psychosis xanax 0.5 po tid for anxiety will monitor vitals, PRN meds for opioid withdrawals started will follow-up on labs Family involvement Follow up on labs Will monitor closely Pt was educated about risk/benefits and alternatives of medications, coping strategies (safety plan, suicide prevention), relapse prevention, importance of follow up with psychiatrist and therapist, stay away from drugs/alcohol/smoking pt will be transferred to the [facility] for involuntary screening. Estimated Date of D/C: 04/21/18
--- NOTE | 2018-04-20 15:43 | PCM.PYCHDC ---
Mental Status Examination - Mental Status Examination Orientation: Person, Place Memory: Impaired (Chronic) Mood: Neutral Affect: Flat Speech: Slurred (chronic) Attention: Poor Concentration: Poor Association: Loose (cchronic) Fund of Knowledge: Poor Formal Thought Process: Loosening of associations, Circumstantial Description of patient's judgement and insight: poor Psychotic Thoughts and Behaviors: poor Suicidal Ideation: No Current Homicidal Ideation?: No Discharge Summary - Discharge Note Reason for Hospitalization: patient was admitted to the psychiatric inpatient unit for evaluation and stabilization of depressive symptoms psychosis, Possible suicidal ideation. Psychiatric History (includes Medical, Family, Personal Hx): see HPI Laboratory Data: 04/18/18 18:20 04/18/18 18:33 Lab Results 04/19/18 08:20: Urine Color Yellow, Urine Appearance Clear, Urine pH 6.0, Ur Specific [place] 1.010, Urine Protein Negative, Urine Glucose (UA) Negative, Urine Ketones Negative, Urine Blood Negative, Urine Nitrate Negative, Urine Bilirubin Negative, Urine Urobilinogen 1.0 H, Ur Leukocyte Esterase Negative 04/18/18 18:33: Sodium 146, Potassium 5.0, Chloride 107, Carbon Dioxide 30, Anion Gap 14, BUN 16, Creatinine 0.9, Est GFR ( Amer) > 60, Est GFR (Non- Af Amer) > 60, Random Glucose 139 H, Calcium 9.3, Total Bilirubin 0.3, AST 44, ALT 30, Alkaline Phosphatase 112, Total Protein 7.8, Albumin 4.2, Globulin 3.6, Albumin/Globulin Ratio 1.2 04/18/18 18:20: WBC 5.3, RBC 4.71, Hgb 13.1 L D, Hct 39.0 L, MCV 82.8, MCH 27.8 , MCHC 33.6, RDW 15.5 H, Plt Count 236, MPV 10.8 04/18/18 13:12: POC Glucose (mg/dL) 140 H 04/17/18 09:00: Carbamazepine 4 04/17/18 09:00: RPR Nonreactive 04/17/18 09:00: Free T4 1.07, TSH 3rd Generation 0.18 L 04/17/18 09:00: Fasting Glucose 214 H, Triglycerides 116, Cholesterol 188, LDL Cholesterol Direct 72, HDL Cholesterol 73 H 04/16/18 05:30: Phenytoin < 3 L 04/16/18 05:17: Alcohol, Quantitative < 10 04/16/18 05:17: Salicylates < 1 L, Acetaminophen < 10.0 L 04/16/18 05:17: Sodium 144, Potassium 3.9, Chloride 109 H, Carbon Dioxide 27, Anion Gap 12, BUN 22 H, Creatinine 0.9, Est GFR ( Amer) > 60, Est GFR ( Non-Af Amer) > 60, Random Glucose 120 H, Calcium 8.8, Magnesium 2.0, Total Bilirubin 0.2, AST 30, ALT 27, Alkaline Phosphatase 93, Total Protein 6.7, Albumin 3.6, Globulin 3.1, Albumin/Globulin Ratio 1.2 04/16/18 05:17: WBC 5.6 D, RBC 3.94, Hgb 11.0 L, Hct 33.0 L, MCV 83.8, MCH 27.9 , MCHC 33.3, RDW 15.5 H, Plt Count 222, MPV 11.0, Gran % 52.4, Lymph % (Auto) 34.4, [place] % (Auto) 8.7 H, Eos % (Auto) 4.1, Baso % (Auto) 0.4, Gran # 2.94, Lymph # (Auto) 1.9, [place] # (Auto) 0.5, Eos # (Auto) 0.2, Baso # (Auto) 0.02 04/16/18 05:00: Hemoglobin A1c 5.5 04/16/18 05:00: Triglycerides 98, Cholesterol 151, LDL Cholesterol Direct 54, HDL Cholesterol 66 H 04/16/18 03:30: Urine Opiates Screen Positive H, Urine Methadone Screen Negative , Ur Barbiturates Screen Positive H, Ur Phencyclidine Scrn Negative, Ur Amphetamines Screen Negative, U Benzodiazepines Scrn Negative, U Oth Cocaine Metabols Positive H, U Cannabinoids Screen Negative 04/16/18 03:30: Urine Color Yellow, Urine Appearance Clear, Urine pH 6.0, Ur Specific [place] 1.020, Urine Protein Negative, Urine Glucose (UA) Negative, Urine Ketones Negative, Urine Blood Negative, Urine Nitrate Negative, Urine Bilirubin Negative, Urine Urobilinogen 0.2, Ur Leukocyte Esterase Negative Vital Signs Temp Pulse Resp BP Pulse Ox 04/20/18 09:14 74 117/89 04/20/18 07:26 97.6 F 74 20 117/87 04/19/18 16:00 82 124/88 04/19/18 09:30 78 115/82 04/19/18 07:01 97.8 F 78 17 115/82 04/19/18 05:07 68 138/103 H 04/18/18 17:50 68 138/103 H 04/18/18 16:00 68 138/103 H 04/18/18 09:50 88 133/93 H 04/18/18 09:47 88 133/93 H 04/18/18 07:15 97.7 F 58 L 20 138/92 H 04/18/18 05:52 58 L 20 138/92 H 04/17/18 20:59 60 145/106 H 04/17/18 20:45 60 19 145/106 H 04/17/18 15:02 86 130/86 04/17/18 07:00 96.7 F L 73 20 129/99 H 04/16/18 16:00 64 124/91 H 04/16/18 14:21 18 04/16/18 11:20 97.6 F 73 18 120/82 04/16/18 11:13 98 F 76 129/53 L 100 04/16/18 10:53 98.3 F 88 19 125/63 98 04/16/18 07:35 97.3 F L 85 18 124/56 L 97 04/16/18 01:33 97.7 F 64 18 129/87 99 Consultations:: List each consultation separately and include: 1. Reason for request. 2. Findings. 3. Follow-up Consultations: medical consult appreciated Neurological evaluation requested Summary of Hospital Course include:: 1. Description of specific treatment plan utilized for patients during their course of treatmen. 2. Summarize the time- course for resolution of acute symptoms and/or regressed behaviors. 3. Describe issues identified and worked on during hospitalization. 4. Describe medication utilized. 5. Describe medical problems identified and treated. 6. Reassessment of suicide risk Summary of Hospital Course: shortly patient is a 41 year old male, with history of schizophrenia spectrum disorder, traumatic brain injury, polysubstance abuse and dependence, chronic noncompliance with the medications and follow-up appointments, patient is currently homeless, presented in ED requesting detox from the [facility], when pt got to know that no detox bed available, pt insisted to be admitted to the psychiatric inpatient unit for evaluation of depressive symptoms, med management. In ED pt almost attacked a studio associate, impulses were unpredictable. pt required further stabilization in inpatient unit. pt was seen and examined at the treatment team meeting, pt presented with poor personal hygiene, was unsteady, seems to be under the influence of drugs. pt had poor ADLs. pt presented to be confused, disorganized, very concrete thought process, was not able to comprehend the treatment plan. pt was keep asking the same question all over and over again. pt said he suffers from depression all his life, pt denied that he feels hopeless or helpless. pt also denied thoughts of harming self or others. pt became angry and loud, punched the wall, needed to be medicated with IM. ast admission pt presented with similar symptoms: flat affect, patient has cognitive limitations due to traumatic brain injury, there is no option to have meaningful conversation. Patient had severe thought blocking, concrete thought process, as well as poverty of speech and poverty of thoughts, poor impulse control. pt is a poor historian. pt said that he is a cutter, multiple old scars on his UE. as per previous admission note: Mother Nakia states that pt has a TBI, and is sometimes forgetful, and goes through bouts of depression. pt was not able to answer if he hears voices or seeing things, but appeared to be internally preoccupied. pt has h/o command type hallucinations as per [facility]. PMH History of seizures, HTN patient smokes about a pack a day, nicotine patch offered, counseling provided. pt said he uses heroin daily, about 4-5 bags a day, pt said he is snorting, but in ED said he uses IV. ED PES pt stated: "I'm not doing good at all. I am suffering from a great deal of depression and heroin addiction. Psychiatrically I am not stable, I am not doing well, I don't trust myself. I started to cut again today. I am suicidal. I am looking for help for this depression and addiction." 04/16/18 05:17 04/16/18 05:17 Lab Results 04/17/18 09:00: Carbamazepine 4 04/17/18 09:00: Free T4 1.07, TSH 3rd Generation 0.18 L 04/17/18 09:00: Fasting Glucose 214 H, Triglycerides 116, Cholesterol 188, LDL Cholesterol Direct 72, HDL Cholesterol 73 H 04/16/18 05:30: Phenytoin < 3 L 04/16/18 05:17: Alcohol, Quantitative < 10 04/16/18 05:17: Salicylates < 1 L, Acetaminophen < 10.0 L 04/16/18 05:17: Sodium 144, Potassium 3.9, Chloride 109 H, Carbon Dioxide 27, Anion Gap 12, BUN 22 H, Creatinine 0.9, Est GFR ( Amer) > 60, Est GFR ( Non-Af Amer) > 60, Random Glucose 120 H, Calcium 8.8, Magnesium 2.0, Total Bilirubin 0.2, AST 30, ALT 27, Alkaline Phosphatase 93, Total Protein 6.7, Albumin 3.6, Globulin 3.1, Albumin/Globulin Ratio 1.2 04/16/18 05:17: WBC 5.6 D, RBC 3.94, Hgb 11.0 L, Hct 33.0 L, MCV 83.8, MCH 27.9 , MCHC 33.3, RDW 15.5 H, Plt Count 222, MPV 11.0, Gran % 52.4, Lymph % (Auto) 34.4, [place] % (Auto) 8.7 H, Eos % (Auto) 4.1, Baso % (Auto) 0.4, Gran # 2.94, Lymph # (Auto) 1.9, [place] # (Auto) 0.5, Eos # (Auto) 0.2, Baso # (Auto) 0.02 04/16/18 05:00: Hemoglobin A1c 5.5 04/16/18 05:00: Triglycerides 98, Cholesterol 151, LDL Cholesterol Direct 54, HDL Cholesterol 66 H 04/16/18 03:30: Urine Opiates Screen Positive H, Urine Methadone Screen Negative , Ur Barbiturates Screen Positive H, Ur Phencyclidine Scrn Negative, Ur Amphetamines Screen Negative, U Benzodiazepines Scrn Negative, U Oth Cocaine Metabols Positive H, U Cannabinoids Screen Negative 04/16/18 03:30: Urine Color Yellow, Urine Appearance Clear, Urine pH 6.0, Ur Specific [place] 1.020, Urine Protein Negative, Urine Glucose (UA) Negative, Urine Ketones Negative, Urine Blood Negative, Urine Nitrate Negative, Urine Bilirubin Negative, Urine Urobilinogen 0.2, Ur Leukocyte Esterase Negative Vital Signs Temp Pulse Resp BP Pulse Ox 04/17/18 07:00 96.7 F L 73 20 129/99 H 04/16/18 16:00 64 124/91 H 04/16/18 14:21 18 04/16/18 11:20 97.6 F 73 18 120/82 04/16/18 11:13 98 F 76 129/53 L 100 04/16/18 10:53 98.3 F 88 19 125/63 98 04/16/18 07:35 97.3 F L 85 18 124/56 L 97 04/16/18 01:33 97.7 F 64 18 129/87 99 [facility] pharmacy was contacted [phone] patient was on the following medications: Depakote 500 mg 3 times a day filled in March 10 by Keppra 500 mg 2 pills twice a day Field on March 10 by MiraLAX, senna daily Phenobarbital 32.4 twice a day filled in April 05 Lisinopril 10 mg daily field in February 07 by Carbamazepine 200 mg 3 times a day filled in April 05 by over the course of this hospitalization patient was unpredictable, impulsive, needed to be in restraint, patient was screened by [facility] patient was accepted, was transferred today. As per social research assistant evaluation patient had weren't for his arrest for multiple tickets, this business writer provided letter to the court saying that he is in the hospital. Patient was relatively stabilized on the following medications: Depakote 500 mg 3 times a day ffor mood stabilization Keppra 500 mg 2 pills twice a day pprocedures Phenobarbital 32.4 twice a dayffor seizures Lisinopril 10 mg daily resumed Carbamazepine 200 mg 3 times a day procedures PRN meds seroquel 50mg po daily and 100mg hs for psychosis xanax 0.5 po tid for anxiety patient tolerated medications well, no side effects observed or reported, aims 0 , no EPS. Patient was transferred to [facility] today - Diagnosis (1) Drug abuse Current Visit: Yes Status: Chronic Priority: High Comment: Management as per Dr. Braga and the detox unit team. (2) TBI (traumatic brain injury) Current Visit: No Status: Chronic Priority: High (3) Schizophrenia Current Visit: No Status: Chronic Priority: High - Final Diagnosis (DSM 5) Condition upon Discharge: IMPROVED Disposition: [facility]GE [facility] Follow-up Treatment Plan: Milieu/structure/supportive therapy Medical consult appreciated Neurological consultation requested consultation for discharge plan and social issues Med management, all meds were confirmed and resumed [facility] pharmacy was contacted [phone] Depakote 500 mg 3 times a day will be resumed Keppra 500 mg 2 pills twice a day resumed Phenobarbital 32.4 twice a day resumed Lisinopril 10 mg daily resumed Carbamazepine 200 mg 3 times a day resumed PRN meds seroquel 50mg po daily and 100mg hs for psychosis xanax 0.5 po tid for anxiety will monitor vitals, PRN meds for opioid withdrawals started will follow-up on labs Family involvement Follow up on labs Will monitor closely Pt was educated about risk/benefits and alternatives of medications, coping strategies (safety plan, suicide prevention), relapse prevention, importance of follow up with psychiatrist and therapist, stay away from drugs/alcohol/smoking pt will be transferred to the [facility] for involuntary screening. - Smoking Cessation Smoking Cessation Medication prescribed: No - Antipsychotic Medications Pt discharged on 2 or more routine antipsychotic medications: No
== END 2018-04-20 15:45 | DRG 430 ==
LOC: ED 01:04 → ERH 02:59 → PSYC 11:11
PROVIDERS: ADMIT Psychiatry & Neurology Psychiatry; ATTEND Psychiatry & Neurology Psychiatry
DX: F32.3 Major depressive disorder, single episode, severe with psychotic features (principal); F11.24 Opioid dependence with opioid-induced mood disorder; B19.20 Unspecified viral hepatitis C without hepatic coma; F14.10 Cocaine abuse, uncomplicated; F41.9 Anxiety disorder, unspecified; F60.9 Personality disorder, unspecified; G40.909 Epilepsy, unspecified, not intractable, without status epilepticus; I10 Essential (primary) hypertension; S50.312A Abrasion of left elbow, initial encounter; W19.XXXA Unspecified fall, initial encounter; Y93.01 Activity, walking, marching and hiking; Y92.232 Corridor of hospital as the place of occurrence of the external cause; Z88.8 Allergy status to other drugs, medicaments and biological substances; Z59.0 Homelessness; Z78.1 Physical restraint status; Z91.14 Patient's other noncompliance with medication regimen

== ENCOUNTER 2018-12-23 21:20 | Emergency (ER) | payer MEDICAID ==
[2018-12-23 21:22] VITALS: BMI 27.3
[2018-12-23 21:38] VITALS: TEMP 97.8; O2SAT 100
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
[2018-12-23 23:49] VITALS: RESP 18
[2018-12-24 07:00] VITALS: BP 131/75; PULSE 78
== END 2018-12-24 06:45 | disposition home or self-care (01) ==
LOC: ED 21:20
DX: F11.10 Opioid abuse, uncomplicated (principal); F10.129 Alcohol abuse with intoxication, unspecified

== ENCOUNTER 2018-12-25 20:06 | Inpatient (IN) | payer MEDICAID ==
[2018-12-25 20:07] VITALS: BMI 27.3
[2018-12-25] MEDS ORDERED: Bacitracin 500 Units/gm Oint Foilpak UD ONE (20:48)
[2018-12-25] MEDS ORDERED: Bacitracin 500 Units/gm Oint Foilpak UD TOP ONE (21:24)
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
[2018-12-25 21:39] LABS: ALB/GLOB RATIO 1.2 (1.1-1.8); ALBUMIN 4.1 g/dL (3.0-4.8); ALT/SGPT 24 U/L (7-56); AST/SGOT 32 U/L (17-59); BLOOD UREA NITROGEN 17 mg/dL (7-21); GFR NON-AFRICAN AMERICAN > 60
[2018-12-25 22:01] LABS: BASO # 0.03 K/mm3 (0.0-2.0); BASO % 0.5 % (0.0-3.0); EOS # 0.3 (0.0-0.7); HEMOGLOBIN 9.6 g/dL (14.0-18.0); LYMPH # 2.3 (1.2-3.4); LYMPH % 36.7 % (22.0-35.0); MEAN CELL VOLUME 73.2 fl (80.0-105.0); MEAN CORPUSCULAR HEMOGLOBIN 22.2 pg (25.0-35.0); MEAN CORPUSCULAR HGB CONC 30.3 g/dl (31.0-37.0); MEAN PLATELET VOLUME 9.5 fl (7.0-11.0); MONO # 0.4 (0.1-0.6); MONO % 5.6 % (1.0-6.0); RBC 4.33 10^6/uL (3.5-6.1); RED CELL DISTRIBUTION WIDTH 18.4 % (11.5-14.5); WHITE BLOOD COUNT 6.2 10^3/uL (4.5-11.0)
[2018-12-25 22:10] LABS: ACETAMINOPHEN < 10.0 ug/ml (10.0-20.0); SALICYLATE < 1 mg/dL (2.0-20.0)
[2018-12-25 22:45] LABS: URINE BILIRUBIN NEGATIVE (NEGATIVE); URINE BLOOD NEGATIVE (NEGATIVE); URINE GLUCOSE (UA) NEGATIVE (NEGATIVE); URINE LEUKOCYTE ESTERASE NEGATIVE Leu/uL (NEGATIVE); URINE PROTEIN TRACE mg/dL (<30 mg/dL)
[2018-12-25 22:46] LABS: URINE APPEARANCE CLEAR (CLEAR); URINE COLOR YELLOW (YELLOW)
[2018-12-25 22:49] LABS: URINE BACTERIA TRACE /hpf; URINE RBC 0 - 2 /hpf (0-2)
[2018-12-25 23:03] LABS: BARBITURATES, UR POSITIVE (NEGATIVE); BENZODIAZEPINES, UR NEGATIVE (NEGATIVE); OPIATES, UR POSITIVE (NEGATIVE); PHENCYCLIDINE, UR NEGATIVE (NEGATIVE)
[2018-12-26] MEDS ORDERED: Magnesium Hydroxide Susp 30 ml UD PO PRN (01:16)
[2018-12-26] MEDS ORDERED: Alum-Mag Hydrox-Simethicone Susp (30 mL) PO PRN (01:16)
--- NOTE | 2018-12-26 02:04 | PCM.BM ---
<Yao Bo - Last Filed: 12/26/18 02:01> Treatment Plan Problems - Problems identified on initial assessmt suicidal ideation Date Initiated: 12/26/18 Time Initiated: 02:02 Assessment reference: NA Status: Active Self harm Date Initiated: 12/26/18 Time Initiated: 02:02 Assessment reference: NA Status: Active Ineffective coping Date Initiated: 12/26/18 Time Initiated: 02:02 Assessment reference: NA Status: Active Medication non-adherence Date Initiated: 12/26/18 Time Initiated: 02:03 Assessment reference: NA Status: Active Treatment assets and liabiliti Patient Assests: motivated, ADL independent Patient Liabilities: poor support system, substance abuse, medical problems, imparied memory - Milieu Protocol Maintain good personal hygiene: daily Encourage regular showers, daily Remind patient to perform daily oral care, daily Assist patient to perform ADL's Conduct patient checks and document Observation sheet: 1:1 Maintain personal safety: every shift Educate patient to report safety concerns to staff, every shift Monitor environment for contraband/sharps Medication safety: Monitor for expected outcome, potential side effects: every shift, Assess barriers to learning: every shift, Assess readiness for medication education: every shift Family Contact Family involvement: Patient does not wish Family/SO involvement Discharge/Continuing Care - Education Needs Education Needs: Patient Medication, Patient Diagnosis/Disease Process, Patient Coping Skills, Patient Anger Management skills, Patient Community resources, Patient Activities of Daily Living, Patient Health Practices/Safety, Patient Personal Hygiene/Grooming, Patient Aftercare Safety Plan - Discharge Discharge Criteria: Tolerates medication w/o severe side effects, Free of Suicidal thoughts, Free of agitation, Ability to care for self, No longer exhibiting s/s of withdrawal, Reduction of target symptoms Discharge to:: Home <Gena Avila - Last Filed: 12/26/18 10:03> - Diagnosis (1) Opiate dependence Status: Acute Interventions: * group, milieu and supportive tx * SW consultation for discharge plan and social issues * Methadone 15 mg po x1 on 12/26/18. Will c/w to provide tapering methadone, clonidine 0.1 mg q12 prn and comfort measures to help with opiate withdrawal * Ativan 1 mg po TID to help with anxiety, agitation, withdrawal and mood control * Consider drug interventions such as naltrexone to help with drug abstinence however patient has not been motivated in the past for this type of f/u * Seroquel 50 mg po bid and 100 HS to help with agitation, hallucinations and mood control. * Nicotine patch 14 mg daily to help with tobacco withdrawal and cessation * Thorazine po and IM prns for agitation as prior records indicate allergy to prolixin and haldol { fluphenazine Adverse Reaction (Verified 12/26/18 01:12) SWELLING.and haloperidol Adverse Reaction (Verified 12/26/18 01:12) NAUSEA 12/26/18 10:05 (2) Polysubstance abuse Status: Acute Interventions: 12/26/18 10:05 * group, milieu and supportive tx * SW consultation for discharge plan and social issues * Methadone 15 mg po x1 on 12/26/18. Will c/w to provide tapering methadone, clonidine 0.1 mg q12 prn and comfort measures to help with opiate withdrawal * Ativan 1 mg po TID to help with anxiety, agitation, withdrawal and mood control * Consider drug interventions such as naltrexone to help with drug abstinence however patient has not been motivated in the past for this type of f/u * Seroquel 50 mg po bid and 100 HS to help with agitation, hallucinations and mood control. * Nicotine patch 14 mg daily to help with tobacco withdrawal and cessation * Thorazine po and IM prns for agitation as prior records indicate allergy to prolixin and haldol { fluphenazine Adverse Reaction (Verified 12/26/18 01:12) SWELLING.and haloperidol Adverse Reaction (Verified 12/26/18 01:12) NAUSEA (3) Schizoaffective disorder Status: Acute Interventions: 12/26/18 10:05 * group, milieu and supportive tx * SW consultation for discharge plan and social issues * Methadone 15 mg po x1 on 12/26/18. Will c/w to provide tapering methadone, clonidine 0.1 mg q12 prn and comfort measures to help with opiate withdrawal * Ativan 1 mg po TID to help with anxiety, agitation, withdrawal and mood control * Consider drug interventions such as naltrexone to help with drug abstinence however patient has not been motivated in the past for this type of f/u * Seroquel 50 mg po bid and 100 HS to help with agitation, hallucinations and mood control. * Nicotine patch 14 mg daily to help with tobacco withdrawal and cessation * Thorazine po and IM prns for agitation as prior records indicate allergy to prolixin and haldol { fluphenazine Adverse Reaction (Verified 12/26/18 01:12) SWELLING.and haloperidol Adverse Reaction (Verified 12/26/18 01:12) NAUSEA <Adrianne Alston - Last Filed: 12/28/18 08:14> Family Contact Family involvement: Famliy/SO not involved <Nuzhat Ríos - Last Filed: 12/28/18 08:41>
[2018-12-26 08:18] LABS: CARBAMAZEPINE < 3 ug/mL (4.0-10.0); IRON 29 ug/dL (45-180)
[2018-12-26 08:24] LABS: % IRON SATURATION 8 % (20-55); TOTAL IRON BINDING CAPACITY 385 ug/dL (261-462)
--- NOTE | 2018-12-26 08:45 | RAD ---
Date of service: 12/25/2018 HISTORY: psych COMPARISON: Portable chest 08/13/2018. TECHNIQUE: 1 view obtained. FINDINGS: LUNGS: No active pulmonary disease. PLEURA: No significant pleural effusion identified, no pneumothorax apparent. CARDIOVASCULAR: No aortic atherosclerotic calcification present. Normal cardiac size. No pulmonary vascular congestion. OSSEOUS STRUCTURES: No significant abnormalities. VISUALIZED UPPER ABDOMEN: Normal. OTHER FINDINGS: None. IMPRESSION: No interval acute cardiopulmonary disease appreciated.
--- NOTE | 2018-12-26 09:17 | CARD ---
APPROVED REPORT Date of service: 12/25/2018 EKG Measurement Heart [id number] <Conclusion> Normal sinus rhythm Normal ECG
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
[2018-12-26 10:20] LABS: BASO # 0.03 K/mm3 (0.0-2.0); BASO % 0.7 % (0.0-3.0); EOS # 0.3 (0.0-0.7); EOS % 7.7 % (1.5-5.0); HEMOGLOBIN 9.8 g/dL (14.0-18.0); LYMPH # 1.4 (1.2-3.4); LYMPH % 30.9 % (22.0-35.0); MEAN CELL VOLUME 73.2 fl (80.0-105.0); MEAN CORPUSCULAR HEMOGLOBIN 21.9 pg (25.0-35.0); MEAN PLATELET VOLUME 9.7 fl (7.0-11.0); MONO # 0.4 (0.1-0.6); MONO % 8.9 % (1.0-6.0); RBC 4.47 10^6/uL (3.5-6.1); RED CELL DISTRIBUTION WIDTH 18.5 % (11.5-14.5); WHITE BLOOD COUNT 4.4 10^3/uL (4.5-11.0)
[2018-12-26 12:35] LABS: FERRITIN 7.1 ng/mL
[2018-12-26] MEDS ORDERED: Divalproex 500 mg DR(BID formulation) PO SCH (13:00)
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
[2018-12-26] MEDS: DiphenhydrAMINE 50 mg/ml Inj IM PRN (23:35)
--- NOTE | 2018-12-27 00:48 | CP.PCM.PN ---
Subjective - Date & Time of Evaluation Date of Evaluation: 12/27/18 Time of Evaluation: 00:43 - Subjective Subjective: Patient is a 42 yo M with PMH of traumatic brain injury, schizophrenia, Hepatitis C, polysubstance abuse and epilepsy is admitted to psychiatry for suicidal ideation with plan to hurt himself by cutting his forearms. VSS Gen: agitated, NAD Lungs: CTA b/l Cardiac: rrr, si s2 Abd: soft, NT Extremities: no edema Skin: multiple scars on bilateral UE A: Patient was being agitated and violent towards staff members. Resident was called to examine patient and order 4-point restraints. P: - 4-point restraints ordered - Patient moved from his room to a solitary room - Patient is on 1:1 - Patient is already on scheduled and PRN Nesha Fisher, PGY-1 Objective - Vital Signs/Intake and Output Vital Signs (last 24 hours): Temp Pulse Resp BP Pulse Ox 98.2 F 91 H 18 132/95 H 99 12/26/18 06:41 12/26/18 21:53 12/26/18 21:53 12/26/18 21:53 12/26/18 02:08 - Medications Medications: Current Medications Acetaminophen (Tylenol 325mg Tab) 650 mg PO Q6H PRN PRN Reason: Pain, moderate (4-7) Al Hydrox/Mg Hydrox/Simethicone (Maalox Plus 30 Ml) 30 ml PO DAILY PRN PRN Reason: Upset Stomach Carbamazepine (Tegretol) 200 mg PO TID [facility]; Protocol Last Admin: 12/26/18 17:33 Dose: 200 mg Chlorpromazine (Thorazine) 50 mg PO Q6 PRN; Protocol PRN Reason: Agitation Last Admin: 12/26/18 21:13 Dose: 50 mg Chlorpromazine (Thorazine) 25 mg IM Q6 PRN; Protocol PRN Reason: Agitation Diphenhydramine HCl (Benadryl) 50 mg PO Q6H PRN PRN Reason: Allergy symptoms Diphenhydramine HCl (Benadryl) 50 mg IM Q6 PRN PRN Reason: Allergy symptoms Last Admin: 12/26/18 23:35 Dose: 50 mg Folic Acid (Folic Acid) 1 mg PO DAILY [facility] Last Admin: 12/26/18 12:47 Dose: 1 mg Levetiracetam (Keppra) 500 mg PO BID [facility] Last Admin: 12/26/18 17:33 Dose: 500 mg Lorazepam (Ativan) 1 mg PO AMHS [facility]; Protocol Last Admin: 12/26/18 21:13 Dose: 1 mg Lorazepam (Ativan) 2 mg PO Q6H PRN; Protocol PRN Reason: Anxiety Lorazepam (Ativan) 1 mg PO 1500 [facility]; Protocol Last Admin: 12/26/18 17:32 Dose: 1 mg Lorazepam (Ativan) 2 mg IM Q6H PRN; Protocol PRN Reason: Anxiety Last Admin: 12/26/18 23:34 Dose: 2 mg Magnesium Hydroxide (Milk Of Magnesia) 30 ml PO DAILY PRN PRN Reason: Constipation Multivitamins/Minerals (Therapeutic-M Tab) 1 tab PO 0800 [facility] Nicotine (Nicoderm Cq) 1 patch TD DAILY [facility] Last Admin: 12/26/18 12:47 Dose: 1 patch Quetiapine Fumarate (Seroquel) 100 mg PO HS [facility]; Protocol Last Admin: 12/26/18 21:14 Dose: 100 mg Quetiapine Fumarate (Seroquel) 50 mg PO BID [facility]; Protocol Last Admin: 12/26/18 17:33 Dose: 50 mg Thiamine HCl (Vitamin B1 Tab) 100 mg PO DAILY [facility] Last Admin: 12/26/18 12:47 Dose: 100 mg - Labs Labs: 12/26/18 10:10 12/25/18 21:00
[2018-12-27 05:40] VITALS: O2SAT 98
[2018-12-27] MEDS: DiphenhydrAMINE 50 mg/ml Inj IM PRN (06:01)
[2018-12-27] MEDS: Multivitamin With Minerals Tab PO SCH (09:35)
--- NOTE | 2018-12-27 14:53 | PCM.PYCHPN ---
Psychiatric Progress Note - Psychiatric Progress Note Patient seen today, length of contact: 30min Patient Chief Complaint: "Ah, oh, oy...." Problems Identified/Issues Discussed: No meaningful conversation possible for this patient. Medical Problems: TBI, seizure, see HPI Diagnostic Results: 12/26/18 10:10 12/25/18 21:00 Lab Results 12/26/18 10:10: WBC 4.4 L D, RBC 4.47, Hgb 9.8 L, Hct 32.7 L, MCV 73.2 L, MCH 21.9 L, MCHC 30.0 L, RDW 18.5 H, Plt Count 293, MPV 9.7, Neut % (Auto) 51.8, Lymph % (Auto) 30.9, [place] % (Auto) 8.9 H, Eos % (Auto) 7.7 H, Baso % (Auto) 0.7, Lymph # (Auto) 1.4, [place] # (Auto) 0.4, Eos # (Auto) 0.3, Baso # (Auto) 0.03, Absolute Neuts (auto) 2.28 12/26/18 07:30: Iron 29 L, TIBC 385, % Saturation 8 L, Carbamazepine < 3 L 12/26/18 07:30: Fasting Glucose 93, Ferritin 7.1, Triglycerides 42, Cholesterol 147, LDL Cholesterol Direct 65, HDL Cholesterol 72 H 12/26/18 06:00: RPR Nonreactive 12/25/18 22:30: Urine Opiates Screen Positive H, Urine Methadone Screen Negative , Ur Barbiturates Screen Positive H, Ur Phencyclidine Scrn Negative, Ur Amp hetamines Screen Negative, U Benzodiazepines Scrn Negative, U Oth Cocaine Metabols Positive H, U Cannabinoids Screen Negative 12/25/18 22:30: Urine Color Yellow, Urine Appearance Clear, Urine pH 6.0, Ur Specific [place] 1.025, Urine Protein Trace H, Urine Glucose (UA) Negative, Urine Ketones Trace H, Urine Blood Negative, Urine Nitrate Negative, Urine Bilirubin Negative, Urine Urobilinogen 1.0 H, Ur Leukocyte Esterase Negative, Urine RBC 0 - 2, Urine WBC None, Ur Epithelial Cells None, Urine Bacteria Trace 12/25/18 21:30: Alcohol, Quantitative 15 H 12/25/18 21:30: Salicylates < 1 L, Acetaminophen < 10.0 L 12/25/18 21:30: WBC 6.2 D, RBC 4.33, Hgb 9.6 L, Hct 31.7 L, MCV 73.2 L, MCH 22.2 L, MCHC 30.3 L, RDW 18.4 H, Plt Count 306, MPV 9.5, Neut % (Auto) 52.2, Lymph % (Auto) 36.7 H, [place] % (Auto) 5.6, Eos % (Auto) 5.0, Baso % (Auto) 0.5, Lymph # (Auto) 2.3, [place] # (Auto) 0.4, Eos # (Auto) 0.3, Baso # (Auto) 0.03, Absolute Neuts (auto) 3.25 12/25/18 21:00: Sodium 141, Potassium 4.2, Chloride 106, Carbon Dioxide 27, Anion Gap 12, BUN 17, Creatinine 1.0, Est GFR ( Amer) > 60, Est GFR (Non- Af Amer) > 60, Random Glucose 105, Calcium 9.0, Magnesium 1.9, Total Bilirubin 0.2, AST 32, ALT 24, Alkaline Phosphatase 128 H, Total Protein 7.4, Albumin 4.1, Globulin 3.3, Albumin/Globulin Ratio 1.2 Vital Signs Temp Pulse Resp BP Pulse Ox 12/27/18 11:14 66 147/106 H 12/27/18 09:23 66 18 147/106 H 12/27/18 05:38 97.2 F L 64 18 154/96 H 98 12/27/18 04:46 97.8 F 68 18 138/88 12/27/18 03:19 97.8 F 64 18 149/96 H 12/27/18 01:51 98.0 F 72 18 138/92 H 12/26/18 21:53 91 H 18 132/95 H 12/26/18 16:00 78 114/74 12/26/18 06:41 98.2 F 63 16 123/82 12/26/18 02:08 98 F 75 18 138/88 99 12/26/18 00:47 98.0 F 80 17 148/76 100 12/25/18 23:07 88 17 148/76 99 12/25/18 20:11 97.8 F 76 18 141/68 100 DSM 5 Symptoms Update: Jadon Louie is a single homeless 43 year old male with a psychiatric history of Schizoaffective Disorder, TBI, profound drug dependency {cocaine, heroin, benzos & alcohol}, numerous psychiatric admissions {20+} within the [facility] system generally due to his drug use, [place]ol[place] [facility], multiple AMA discharges, chronic noncompliance with aftercare recommendations and medications who presented to the emergency department on 12/25/18 with suicidal ideation. Patient reported that he already tried to hurt himself by cutting his wrists and he presented with superficial cuts on both arms. based on RN report, pt was agitated over night, was in restraint due to agitation/aggression/impulsivity. pt was seen at the quiet room, s/p IM, pt was on 1:1 observation. pt presented to be disorganized, no meaningful conversation possible, pt is laying on the floor, next to the mattress, this law writer tried to evaluate this pt but he was just moaning and trying to hit his hands against the mattress. as per 1:1, staff attempted to assist pt to lay on the mattress, but pt is climbing off from it and not willing to stay on it. This law writer contacted patient's pharmacy [facility] [phone] patient was on the following medications: Carbamazepine 200 mg 4 times a day last time filled on November 10, 2018 Carbamazepine 100 mg twice a day Amlodipine 10 mg daily last time filled in November 30, 2018 Phenobarbital 32.4 twice a day filled in December 14 Will resume carbamazepine/lorazepam/phenobarbital. Patient already was seen by medical team. Impression: Schizophrenia TBI Most likely patient was noncompliant with her medications for seizures Polysubstance abuse opioid/cocaine/barbiturates Rule out opioid/benzos withdrawals Medication Change: Yes (meds confirmed) Medical Record Reviewed: Yes Consults ordered or reviewed: Medical consult appreciated Neurology consult will be considered. Mental Status Examination - Cognitive Function Attention: Poor Concentration: Poor Association: Loose Fund of Knowledge: Poor - Formal Thought Process Formal Thought Process: Hallucinations, Delusions, Paranoia, Loosening of associations - Suicidal Ideation Suicidal Ideation: Yes Plan: at ED - Homicidal Ideation Homicidal Ideation: No Goal/Treatment Plan - Goal/Treatment Plan Need for Continued Stay: Remain at risks for inpatient hospitalization, Severe depression anxiety, Discharge may exacerbated symptoms, Severe functional impairment Progress Toward Problem(s) and Goals/Treatment Plan: Milieu/structure/supportive therapy SW consultation for discharge plan and social issues Med management Medications were confirmed and resumed Carbamazepine/amlodipine/phenobarbital resumed As needed medication for opioid and benzo withdrawals Family involvement Follow up on labs Will monitor closely Pt was educated about risk/benefits and alternatives of medications, coping strategies (safety plan, suicide prevention), relapse prevention, importance of follow up with psychiatrist and therapist, stay away from drugs/alcohol/smoking Estimated Date of D/C: 01/04/19
[2018-12-28] MEDS: Multivitamin With Minerals Tab PO SCH (07:11)
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
--- NOTE | 2018-12-28 15:49 | PCM.PYCHPN ---
Psychiatric Progress Note - Psychiatric Progress Note Patient seen today, length of contact: 30min Patient Chief Complaint: "........" patient is deeply sleeping, snoring. Problems Identified/Issues Discussed: No meaningful conversation possible for this patient. Medical Problems: TBI, seizure, see HPI Diagnostic Results: 12/26/18 10:10 12/25/18 21:00 Lab Results 12/26/18 10:10: WBC 4.4 L D, RBC 4.47, Hgb 9.8 L, Hct 32.7 L, MCV 73.2 L, MCH 21.9 L, MCHC 30.0 L, RDW 18.5 H, Plt Count 293, MPV 9.7, Neut % (Auto) 51.8, Lymph % (Auto) 30.9, [place] % (Auto) 8.9 H, Eos % (Auto) 7.7 H, Baso % (Auto) 0.7, Lymph # (Auto) 1.4, [place] # (Auto) 0.4, Eos # (Auto) 0.3, Baso # (Auto) 0.03, Absolute Neuts (auto) 2.28 12/26/18 07:30: Iron 29 L, TIBC 385, % Saturation 8 L, Carbamazepine < 3 L 12/26/18 07:30: Fasting Glucose 93, Ferritin 7.1, Triglycerides 42, Cholesterol 147, LDL Cholesterol Direct 65, HDL Cholesterol 72 H 12/26/18 06:00: RPR Nonreactive 12/25/18 22:30: Urine Opiates Screen Positive H, Urine Methadone Screen Negative, Ur Barbiturates Screen Positive H, Ur Phencyclidine Scrn Negative, Ur Amphetamines Screen Negative, U Benzodiazepines Scrn Negative, U Oth Cocaine Metabols Positive H, U Cannabinoids Screen Negative 12/25/18 22:30: Urine Color Yellow, Urine Appearance Clear, Urine pH 6.0, Ur Specific [place] 1.025, Urine Protein Trace H, Urine Glucose (UA) Negative, Ur ine Ketones Trace H, Urine Blood Negative, Urine Nitrate Negative, Urine Bilirubin Negative, Urine Urobilinogen 1.0 H, Ur Leukocyte Esterase Negative, Urine RBC 0 - 2, Urine WBC None, Ur Epithelial Cells None, Urine Bacteria Trace 12/25/18 21:30: Alcohol, Quantitative 15 H 12/25/18 21:30: Salicylates < 1 L, Acetaminophen < 10.0 L 12/25/18 21:30: WBC 6.2 D, RBC 4.33, Hgb 9.6 L, Hct 31.7 L, MCV 73.2 L, MCH 22.2 L, MCHC 30.3 L, RDW 18.4 H, Plt Count 306, MPV 9.5, Neut % (Auto) 52.2, Lymph % (Auto) 36.7 H, [place] % (Auto) 5.6, Eos % (Auto) 5.0, Baso % (Auto) 0.5, Lymph # (Auto) 2.3, [place] # (Auto) 0.4, Eos # (Auto) 0.3, Baso # (Auto) 0.03, Absolute Neuts (auto) 3.25 12/25/18 21:00: Sodium 141, Potassium 4.2, Chloride 106, Carbon Dioxide 27, Anion Gap 12, BUN 17, Creatinine 1.0, Est GFR ( Amer) > 60, Est GFR (Non- Af Amer) > 60, Random Glucose 105, Calcium 9.0, Magnesium 1.9, Total Bilirubin 0.2, AST 32, ALT 24, Alkaline Phosphatase 128 H, Total Protein 7.4, Albumin 4.1, Globulin 3.3, Albumin/Globulin Ratio 1.2 Vital Signs Temp Pulse Resp BP Pulse Ox 12/27/18 11:14 66 147/106 H 12/27/18 09:23 66 18 147/106 H 12/27/18 05:38 97.2 F L 64 18 154/96 H 98 12/27/18 04:46 97.8 F 68 18 138/88 12/27/18 03:19 97.8 F 64 18 149/96 H 12/27/18 01:51 98.0 F 72 18 138/92 H 12/26/18 21:53 91 H 18 132/95 H 12/26/18 16:00 78 114/74 12/26/18 06:41 98.2 F 63 16 123/82 12/26/18 02:08 98 F 75 18 138/88 99 12/26/18 00:47 98.0 F 80 17 148/76 100 12/25/18 23:07 88 17 148/76 99 12/25/18 20:11 97.8 F 76 18 141/68 100 DSM 5 Symptoms Update: Jadon Louie is a single homeless 43 year old male with a psychiatric history of Schizoaffective Disorder, TBI, profound drug dependency {cocaine, heroin, benzos & alcohol}, numerous psychiatric admissions {20+} within the [facility] system generally due to his drug use, +involuntary commitments to [facility], multiple AMA discharges, chronic noncompliance with aftercare recommendations and m edications who presented to the emergency department on 12/25/18 with suicidal ideation. Patient reported that he already tried to hurt himself by cutting his wrists and he presented with superficial cuts on both arms. based on RN report, pt still unpredictable, psychotic, unsteady gait, required one-to-one observation. Patient is deeply snoring during this principal technical writer around, was not able to open his eyes or participate in interview in a meaningful way. As per report patient ate, took his medications. Whenever patient is up becomes agitated and irritable. Patient still needs to be on one-to-one for his safety and other patients and staff safety. Neurology consultation appreciated, Keppra was discontinued, Trileptal was initiated, Ativan discontinued, phenobarbital discontinued, diazepam 5 mg twice a day started. Impression: Schizophrenia TBI Most likely patient was noncompliant with her medications for seizures Polysubstance abuse opioid/cocaine/barbiturates Rule out opioid/benzos withdrawals Medication Change: Yes (Keppra discontinued, Trileptal 600 mg bid, diazepam 5 mg bid, ativan d/c) Medical Record Reviewed: Yes Consults ordered or reviewed: Medical consult appreciated Neurology consult appreciated See notes for more detailed information. Mental Status Examination - Cognitive Function Attention: Poor Concentration: Poor Association: Loose Fund of Knowledge: Poor - Formal Thought Process Formal Thought Process: Hallucinations, Delusions, Paranoia, Loosening of associations - Suicidal Ideation Suicidal Ideation: No - Homicidal Ideation Homicidal Ideation: No Goal/Treatment Plan - Goal/Treatment Plan Need for Continued Stay: Remain at risks for inpatient hospitalization, Severe depression anxiety, Discharge may exacerbated symptoms, Severe functional impairment Progress Toward Problem(s) and Goals/Treatment Plan: Milieu/structure/supportive therapy Medical consult appreciated Neurology consult appreciated December 28, 2018 consultation for discharge plan and social issues Med management Norvasc 10 mg daily carbamazepine 600 mg twice a day for seizures Volume 5 mg twice a day for seizures Gabapentin 300 mg 3 times a day Seroquel 50 mg twice a day and 100 mg in the nighttime Family involvement Follow up on labs Will monitor closely Pt was educated about risk/benefits and alternatives of medications, coping strategies (safety plan, suicide prevention), relapse prevention, importance of follow up with psychiatrist and therapist, stay away from drugs/alcohol/smoking Estimated Date of D/C: 01/04/19
[2018-12-29] MEDS: Multivitamin With Minerals Tab PO SCH (07:40)
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
[2018-12-30] MEDS: Multivitamin With Minerals Tab PO SCH (08:08)
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
[2018-12-30] MEDS: DiphenhydrAMINE 50 mg/ml Inj IM PRN (15:50)
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
[2018-12-31] MEDS: Multivitamin With Minerals Tab PO SCH (08:32)
[2019-01-01] MEDS: DiphenhydrAMINE 50 mg/ml Inj IM PRN ×2 (07:56→18:37)
[2019-01-01] MEDS: Multivitamin With Minerals Tab PO SCH (08:23)
--- NOTE | 2019-01-01 17:42 | PCM.PYCHPN ---
Psychiatric Progress Note - Psychiatric Progress Note Patient seen today, length of contact: 30min Patient Chief Complaint: "I am suffering, I am suffering from what disease I do not know, but all I know that I am suffering, you are the doctor, tell me why I am suffering?" Problems Identified/Issues Discussed: No meaningful conversation possible for this patient. Medical Problems: TBI, seizure, see HPI Diagnostic Results: 12/26/18 10:10 12/25/18 21:00 Lab Results 12/26/18 10:10: WBC 4.4 L D, RBC 4.47, Hgb 9.8 L, Hct 32.7 L, MCV 73.2 L, MCH 21.9 L, MCHC 30.0 L, RDW 18.5 H, Plt Count 293, MPV 9.7, Neut % (Auto) 51.8, Lymph % (Auto) 30.9, [place] % (Auto) 8.9 H, Eos % (Auto) 7.7 H, Baso % (Auto) 0.7, Lymph # (Auto) 1.4, [place] # (Auto) 0.4, Eos # (Auto) 0.3, Baso # (Auto) 0.03, Absolute Neuts (auto) 2.28 12/26/18 07:30: Iron 29 L, TIBC 385, % Saturation 8 L, Carbamazepine < 3 L 12/26/18 07:30: Fasting Glucose 93, Ferritin 7.1, Triglycerides 42, Cholesterol 147, LDL Cholesterol Direct 65, HDL Cholesterol 72 H 12/26/18 06:00: RPR Nonreactive 12/25/18 22:30: Urine Opiates Screen Positive H, Urine Methadone Screen Negative, Ur Barbiturates Screen Positive H, Ur Phencyclidine Scrn Negative, Ur Amphetamines Screen Negative, U Benzodiazepines Scrn Negative, U Oth Cocaine Metabols Positive H, U Cannabinoids Screen Negative 12/25/18 22:30: Urine Color Yellow, Urine Appearance Clear, Urine pH 6.0, Ur Specific [place] 1.025, Urine Protein Trace H, Urine Glucose (UA) Negative, Urine Ketones Trace H, Urine Blood Negative, Urine Nitrate Negative, Urine Elio irubin Negative, Urine Urobilinogen 1.0 H, Ur Leukocyte Esterase Negative, Urine RBC 0 - 2, Urine WBC None, Ur Epithelial Cells None, Urine Bacteria Trace 12/25/18 21:30: Alcohol, Quantitative 15 H 12/25/18 21:30: Salicylates < 1 L, Acetaminophen < 10.0 L 12/25/18 21:30: WBC 6.2 D, RBC 4.33, Hgb 9.6 L, Hct 31.7 L, MCV 73.2 L, MCH 22.2 L, MCHC 30.3 L, RDW 18.4 H, Plt Count 306, MPV 9.5, Neut % (Auto) 52.2, Lymph % (Auto) 36.7 H, [place] % (Auto) 5.6, Eos % (Auto) 5.0, Baso % (Auto) 0.5, Lymph # (Auto) 2.3, [place] # (Auto) 0.4, Eos # (Auto) 0.3, Baso # (Auto) 0.03, Absolute Neuts (auto) 3.25 12/25/18 21:00: Sodium 141, Potassium 4.2, Chloride 106, Carbon Dioxide 27, Anion Gap 12, BUN 17, Creatinine 1.0, Est GFR ( Amer) > 60, Est GFR (Non- Af Amer) > 60, Random Glucose 105, Calcium 9.0, Magnesium 1.9, Total Bilirubin 0.2, AST 32, ALT 24, Alkaline Phosphatase 128 H, Total Protein 7.4, Albumin 4.1, Globulin 3.3, Albumin/Globulin Ratio 1.2 Vital Signs Temp Pulse Resp BP Pulse Ox 12/27/18 11:14 66 147/106 H 12/27/18 09:23 66 18 147/106 H 12/27/18 05:38 97.2 F L 64 18 154/96 H 98 12/27/18 04:46 97.8 F 68 18 138/88 12/27/18 03:19 97.8 F 64 18 149/96 H 12/27/18 01:51 98.0 F 72 18 138/92 H 12/26/18 21:53 91 H 18 132/95 H 12/26/18 16:00 78 114/74 12/26/18 06:41 98.2 F 63 16 123/82 12/26/18 02:08 98 F 75 18 138/88 99 12/26/18 00:47 98.0 F 80 17 148/76 100 12/25/18 23:07 88 17 148/76 99 04/29/19 20:11 97.8 F 76 18 141/68 100 DSM 5 Symptoms Update: Jadon Louie is a single homeless 43 year old male with a psychiatric history of Schizoaffective Disorder, TBI, profound drug dependency {cocaine, heroin, benzos & alcohol}, numerous psychiatric admissions {20+} within the [facility] system generally due to his drug use, +involuntary commitments to [facility], multiple AMA discharges, chronic noncompliance with aftercare recommendations and medications who presented to the emergency department on 12/25/18 with suicidal ideation. Patient reported that he already tried to hurt himself by cutting his wrists and he presented with superficial cuts on both arms. based on RN report, pt still unpredictable, psychotic, very unsteady gait, required one-to-one observation, patient ambulates using wheelchair. Patient was seen today at the treatment team meeting, patient presented to be impulsive, no meaningful conversation possible, patient was repeating that he is suffering from something and this functional tester typewriters to let him know what he is suffering from. pt was keep asking " why I am suffering?", Patient acknowledged that if he will continue using drugs "I will be , God bless you all for helping me..." Patient required frequent as needed medications, patient is not able to walk independently. as per staff pt ate, has tendency of being agitated, aggressive, impulses are still unpredictable. Neurology consultation appreciated, Keppra was discontinued, Trileptal was initiated, Ativan discontinued, phenobarbital discontinued, diazepam 5 mg twice a day started. Impression: Schizophrenia TBI Most likely patient was noncompliant with her medications for seizures Polysubstance abuse opioid/cocaine/barbiturates Rule out opioid/benzos withdrawals Medication Change: Yes (seroquel increased) Medical Record Reviewed: Yes Consults ordered or reviewed: Medical consult appreciated Neurology consult appreciated See notes for more detailed information. Mental Status Examination - Cognitive Function Orientation: Person Memory: Impaired Attention: Poor Concentration: Poor Association: Loose Fund of Knowledge: Poor - Mood Mood: Depressed - Affect Affect: Flat, Other (labile, odd) - Speech Speech: Loud - Formal Thought Process Formal Thought Process: Hallucinations, Delusions, Paranoia, Loosening of associations - Suicidal Ideation Suicidal Ideation: No - Homicidal Ideation Homicidal Ideation: No Goal/Treatment Plan - Goal/Treatment Plan Need for Continued Stay: Remain at risks for inpatient hospitalization, Severe depression anxiety, Discharge may exacerbated symptoms, Severe functional impairment Progress Toward Problem(s) and Goals/Treatment Plan: Milieu/structure/supportive therapy Medical consult appreciated Neurology consult appreciated December 28, 2018 consultation for discharge plan and social issues Med management Norvasc 10 mg daily carbamazepine 600 mg twice a day for seizures Valium 5 mg twice a day for seizures Gabapentin 300 mg 3 times a day Seroquel increased 150 mg twice a day and 300 mg in the nighttime Family involvement Follow up on labs Will monitor closely Pt was educated about risk/benefits and alternatives of medications, coping strategies (safety plan, suicide prevention), relapse prevention, importance of follow up with psychiatrist and therapist, stay away from drugs/alcohol/smoking Estimated Date of D/C: 01/04/19
[2019-01-02] MEDS: Multivitamin With Minerals Tab PO SCH (08:26)
--- NOTE | 2019-01-02 17:05 | PCM.PYCHPN ---
Psychiatric Progress Note - Psychiatric Progress Note Patient seen today, length of contact: 30min Patient Chief Complaint: "God bless you for all your help..." Problems Identified/Issues Discussed: Symptoms, risk/benefits/alternatives of the medications, discharge planning. Medical Problems: TBI, seizure, see HPI Diagnostic Results: 12/26/18 10:10 12/25/18 21:00 Lab Results 12/26/18 10:10: WBC 4.4 L D, RBC 4.47, Hgb 9.8 L, Hct 32.7 L, MCV 73.2 L, MCH 21.9 L, MCHC 30.0 L, RDW 18.5 H, Plt Count 293, MPV 9.7, Neut % (Auto) 51.8, Lymph % (Auto) 30.9, [place] % (Auto) 8.9 H, Eos % (Auto) 7.7 H, Baso % (Auto) 0.7, Lymph # (Auto) 1.4, [place] # (Auto) 0.4, Eos # (Auto) 0.3, Baso # (Auto) 0.03, Absolute Neuts (auto) 2.28 12/26/18 07:30: Iron 29 L, TIBC 385, % Saturation 8 L, Carbamazepine < 3 L 12/26/18 07:30: Fasting Glucose 93, Ferritin 7.1, Triglycerides 42, Cholesterol 147, LDL Cholesterol Direct 65, HDL Cholesterol 72 H 12/26/18 06:00: RPR Nonreactive 12/25/18 22:30: Urine Opiates Screen Positive H, Urine Methadone Screen Negative, Ur Barbiturates Screen Positive H, Ur Phencyclidine Scrn Negative, Ur Amphetamines Screen Negative, U Benzodiazepines Scrn Negative, U Oth Cocaine Metabols Positive H, U Cannabinoids Screen Negative 12/25/18 22:30: Urine Color Yellow, Urine Appearance Clear, Urine pH 6.0, Ur Specific [place] 1.025, Urine Protein Trace H, Urine Glucose (UA) Negative, Urine Ketones Trace H, Urine Blood Negative, Urine Nitrate Negative, Urine Bilirubin Negative, Urine Urobilinogen 1.0 H, Ur Leukocyte Esterase Negative, Urine RBC 0 - 2, Urine WBC None, Ur Epithelial Cells None, Urine Bacteria Trace 12/25/18 21:30: Alcohol, Quantitative 15 H 12/25/18 21:30: Salicylates < 1 L, Acetaminophen < 10.0 L 12/25/18 21:30: WBC 6.2 D, RBC 4.33, Hgb 9.6 L, Hct 31.7 L, MCV 73.2 L, MCH 22.2 L, MCHC 30.3 L, RDW 18.4 H, Plt Count 306, MPV 9.5, Neut % (Auto) 52.2, Lymph % (Auto) 36.7 H, [place] % (Auto) 5.6, Eos % (Auto) 5.0, Baso % (Auto) 0.5, Lymph # (Auto) 2.3, [place] # (Auto) 0.4, Eos # (Auto) 0.3, Baso # (Auto) 0.03, Absolute Neuts (auto) 3.25 12/25/18 21:00: Sodium 141, Potassium 4.2, Chloride 106, Carbon Dioxide 27, Anion Gap 12, BUN 17, Creatinine 1.0, Est GFR ( Amer) > 60, Est GFR (Non- Af Amer) > 60, Random Glucose 105, Calcium 9.0, Magnesium 1.9, Total Bilirubin 0.2, AST 32, ALT 24, Alkaline Phosphatase 128 H, Total Protein 7.4, Albumin 4.1, Globulin 3.3, Albumin/Globulin Ratio 1.2 Vital Signs Temp Pulse Resp BP Pulse Ox 12/27/18 11:14 66 147/106 H 12/27/18 09:23 66 18 147/106 H 12/27/18 05:38 97.2 F L 64 18 154/96 H 98 12/27/18 04:46 97.8 F 68 18 138/88 12/27/18 03:19 97.8 F 64 18 149/96 H 12/27/18 01:51 98.0 F 72 18 138/92 H 12/26/18 21:53 91 H 18 132/95 H 12/26/18 16:00 78 114/74 12/26/18 06:41 98.2 F 63 16 123/82 12/26/18 02:08 98 F 75 18 138/88 99 12/26/18 00:47 98.0 F 80 17 148/76 100 12/25/18 23:07 88 17 148/76 99 12/25/18 20:11 97.8 F 76 18 141/68 100 Temp Pulse Resp BP Pulse Ox 97.4 F L 111 H 18 116/80 98 12/30/18 08:15 01/02/19 16:00 12/30/18 08:15 01/02/19 16:00 12/27/18 05:38 DSM 5 Symptoms Update: Jadon Louie is a single homeless 43 year old male with a psychiatric history of Schizoaffective Disorder, TBI, profound drug dependency {cocaine, heroin, benzos & alcohol}, numerous psychiatric admissions {20+} within the [facility] system generally due to his drug use, +involuntary commitments to [facility] [place], multiple AMA discharges, chronic noncompliance with aftercare recommendations and medications who presented to the emergency department on 12/25/18 with suicidal ideation. Patient reported that he already tried to hurt himself by cutting his wrists and he presented with superficial cuts on both arms. based on RN report, pt still unpredictable, psychotic, very unsteady gait, but it is improving, patient currently started to ambulate using a walker, required one-to-one observation. will call PT evaluation. Patient was seen today in his room, pt presented the same way, to be impulsive, no meaningful conversation possible, but pt is more pleasant and less PRN medications. pt has TBI, has severe cognitive impairment. Neurology consultation appreciated, Keppra was discontinued, Trileptal was initiated, Ativan discontinued, phenobarbital discontinued, diazepam 5 mg twice a day started. Impression: Schizophrenia TBI Most likely patient was noncompliant with her medications for seizures Polysubstance abuse opioid/cocaine/barbiturates Rule out opioid/benzos withdrawals Medication Change: Yes (seroquel increased ) Medical Record Reviewed: Yes Consults ordered or reviewed: Medical consult appreciated Neurology consult appreciated See notes for more detailed information. Mental Status Examination - Cognitive Function Orientation: Person Memory: Impaired Attention: Poor Concentration: Poor Association: Loose Fund of Knowledge: Poor - Mood Mood: Depressed - Affect Affect: Flat, Other (labile, odd) - Speech Speech: Loud - Formal Thought Process Formal Thought Process: Hallucinations, Delusions, Paranoia, Loosening of associations - Suicidal Ideation Suicidal Ideation: No - Homicidal Ideation Homicidal Ideation: No Goal/Treatment Plan - Goal/Treatment Plan Need for Continued Stay: Remain at risks for inpatient hospitalization, Severe depression anxiety, Discharge may exacerbated symptoms, Severe functional im pairment Progress Toward Problem(s) and Goals/Treatment Plan: Milieu/structure/supportive therapy Medical consult appreciated Neurology consult appreciated December 28, 2018 consultation for discharge plan and social issues Med management Norvasc 10 mg daily carbamazepine 600 mg twice a day for seizures Valium 5 mg twice a day for seizures Gabapentin 300 mg 3 times a day Seroquel increased 150 mg twice a day and 300 mg in the nighttime Family involvement Follow up on labs Will monitor closely Pt was educated about risk/benefits and alternatives of medications, coping str ategies (safety plan, suicide prevention), relapse prevention, importance of follow up with psychiatrist and therapist, stay away from drugs/alcohol/smoking Physical therapy evaluation Discharge planning Estimated Date of D/C: 01/04/19
[2019-01-03] MEDS: DiphenhydrAMINE 50 mg/ml Inj IM PRN ×2 (01:10→21:08)
[2019-01-03 07:13] VITALS: TEMP 97.3
[2019-01-03] MEDS: Multivitamin With Minerals Tab PO SCH (08:37)
--- NOTE | 2019-01-03 13:36 | PCM.PYCHPN ---
Psychiatric Progress Note - Psychiatric Progress Note Patient seen today, length of contact: 30min Patient Chief Complaint: "I am letting you know that I am not from [facility]..." Problems Identified/Issues Discussed: Symptoms, risk/benefits/alternatives of the medications, discharge planning. Medical Problems: TBI, seizure, see HPI Diagnostic Results: 12/26/18 10:10 12/25/18 21:00 Lab Results 12/26/18 10:10: WBC 4.4 L D, RBC 4.47, Hgb 9.8 L, Hct 32.7 L, MCV 73.2 L, MCH 21.9 L, MCHC 30.0 L, RDW 18.5 H, Plt Count 293, MPV 9.7, Neut % (Auto) 51.8, Lymph % (Auto) 30.9, [place] % (Auto) 8.9 H, Eos % (Auto) 7.7 H, Baso % (Auto) 0.7, Lymph # (Auto) 1.4, [place] # (Auto) 0.4, Eos # (Auto) 0.3, Baso # (Auto) 0.03, [place] Neuts (auto) 2.28 12/26/18 07:30: Iron 29 L, TIBC 385, % Saturation 8 L, Carbamazepine < 3 L 12/26/18 07:30: Fasting Glucose 93, Ferritin 7.1, Triglycerides 42, Cholesterol 147, LDL Cholesterol Direct 65, HDL Cholesterol 72 H 12/26/18 06:00: RPR Nonreactive 12/25/18 22:30: Urine Opiates Screen Positive H, Urine Methadone Screen Negative, Ur Barbiturates Screen Positive H, Ur Phencyclidine Scrn Negative, Ur Amphetamines Screen Negative, U Benzodiazepines Scrn Negative, U Oth Cocaine Metabols Positive H, U Cannabinoids Screen Negative 12/25/18 22:30: Urine Color Yellow, Urine Appearance Clear, Urine pH 6.0, Ur Specific [place] 1.025, Urine Protein Trace H, Urine Glucose (UA) Negative, Urine Ketones Trace H, Urine Blood Negative, Urine Nitrate Negative, Urine Bilirubin Negative, Urine Urobilinogen 1.0 H, Ur Leukocyte Esterase Negative, Urine RBC 0 - 2, Urine WBC None, Ur Epithelial Cells None, Urine Bacteria Trace 12/25/18 21:30: Alcohol, Quantitative 15 H 12/25/18 21:30: Salicylates < 1 L, Acetaminophen < 10.0 L 12/25/18 21:30: WBC 6.2 D, RBC 4.33, Hgb 9.6 L, Hct 31.7 L, MCV 73.2 L, MCH 22.2 L, MCHC 30.3 L, RDW 18.4 H, Plt Count 306, MPV 9.5, Neut % (Auto) 52.2, Lymph % (Auto) 36.7 H, [place] % (Auto) 5.6, Eos % (Auto) 5.0, Baso % (Auto) 0.5, Lymph # (Auto) 2.3, [place] # (Auto) 0.4, Eos # (Auto) 0.3, Baso # (Auto) 0.03, Absolute Neuts (auto) 3.25 12/25/18 21:00: Sodium 141, Potassium 4.2, Chloride 106, Carbon Dioxide 27, Anion Gap 12, BUN 17, Creatinine 1.0, Est GFR ( Amer) > 60, Est GFR (Non- Af Amer) > 60, Random Glucose 105, Calcium 9.0, Magnesium 1.9, Total Bilirubin 0.2, AST 32, ALT 24, Alkaline Phosphatase 128 H, Total Protein 7.4, Albumin 4.1, Globulin 3.3, Albumin/Globulin Ratio 1.2 Vital Signs Temp Pulse Resp BP Pulse Ox 12/27/18 11:14 66 147/106 H 12/27/18 09:23 66 18 147/106 H 12/27/18 05:38 97.2 F L 64 18 154/96 H 98 12/27/18 04:46 97.8 F 68 18 138/88 12/27/18 03:19 97.8 F 64 18 149/96 H 12/27/18 01:51 98.0 F 72 18 138/92 H 12/26/18 21:53 91 H 18 132/95 H 12/26/18 16:00 78 114/74 12/26/18 06:41 98.2 F 63 16 123/82 12/26/18 02:08 98 F 75 18 138/88 99 12/26/18 00:47 98.0 F 80 17 148/76 100 12/25/18 23:07 88 17 148/76 99 04/29/19 20:11 97.8 F 76 18 141/68 100 Temp Pulse Resp BP Pulse Ox 97.4 F L 111 H 18 116/80 98 12/30/18 08:15 01/02/19 16:00 12/30/18 08:15 01/02/19 16:00 12/27/18 05:38 DSM 5 Symptoms Update: Jadon Louie is a single homeless 43 year old male with a psychiatric history of Schizoaffective Disorder, TBI, profound drug dependency {cocaine, heroin, benzos & alcohol}, numerous psychiatric admissions {20+} within the [facility] system generally due to his drug use, +involuntary commitments to [facility], multiple AMA discharges, chronic noncompliance with aftercare recommendations and medications who presented to the emergency department on 12/25/18 with suicidal ideation. Patient reported that he already tried to hurt himself by cutting his wrists and he presented with superficial cuts on both arms. based on RN report, overnight patient was agitated, paranoid, screaming/yelling that people are stealing money from him, code ronal was called,IM of Thorazine given. Patient is still on one-to-one observation, and pulses are unpredictable. Patient was seen today at the hallway, pt presented the same way, to be impulsive, no meaningful conversation possible, pt started his conversation with the statement "[place]", then went tangents about random/not c onnected things, then became tearful saying "I am not well, I am not well at all...", then pt was moaning, crying, then was pointing something on his foot/leg. PT evaluated pt, awaiting for recommendations, patient still ambulates using a wheelchair, very unsteady gait. pt has TBI, has severe cognitive impairment. Neurology consultation appreciated, Keppra was discontinued, Trileptal was ini tiated, Ativan discontinued, phenobarbital discontinued, diazepam 5 mg twice a day started. Impression: Schizophrenia TBI Most likely patient was noncompliant with her medications for seizures Polysubstance abuse opioid/cocaine/barbiturates Rule out opioid/benzos withdrawals Medication Change: Yes (seroquel increased ) Medical Record Reviewed: Yes Mental Status Examination - Cognitive Function Orientation: Person Memory: Impaired Attention: Poor Concentration: Poor Association: Loose Fund of Knowledge: Poor - Mood Mood: Depressed - Affect Affect: Flat, Other (labile, odd) - Speech Speech: Loud - Formal Thought Process Formal Thought Process: Hallucinations, Delusions, Paranoia, Loosening of as sociations - Suicidal Ideation Suicidal Ideation: No - Homicidal Ideation Homicidal Ideation: No Goal/Treatment Plan - Goal/Treatment Plan Need for Continued Stay: Remain at risks for inpatient hospitalization, Severe depression anxiety, Discharge may exacerbated symptoms, Severe functional impairment Progress Toward Problem(s) and Goals/Treatment Plan: Milieu/structure/supportive therapy Medical consult appreciated Neurology consult appreciated December 28, 2018 consultation for discharge plan and social issues Med management Norvasc 10 mg daily carbamazepine 600 mg twice a day for seizures Valium 5 mg twice a day for seizures Gabapentin 300 mg 3 times a day Seroquel increased 150 mg twice a day and 400 mg in the nighttime Family involvement Follow up on labs Will monitor closely Pt was educated about risk/benefits and alternatives of medications, coping strategies (safety plan, suicide prevention), relapse prevention, importance of follow up with psychiatrist and therapist, stay away from drugs/alcohol/smoking Physical therapy evaluation Discharge planning Estimated Date of D/C: 01/08/19
--- NOTE | 2019-01-04 01:37 | CP.PCM.PN ---
Subjective - Date & Time of Evaluation Date of Evaluation: 01/04/19 Time of Evaluation: 01:37 - Subjective Subjective: Patient was attended to by me when CODE DOLAN was announced. See remote medical coder's note elsewhere which was endorsed by me. Objective - Vital Signs/Intake and Output Vital Signs (last 24 hours): Temp Pulse Resp BP Pulse Ox 97.3 F L 69 20 164/83 H 98 01/03/19 07:12 01/03/19 20:24 01/03/19 07:12 01/03/19 20:24 12/27/18 05:38 - Medications Medications: Current Medications Acetaminophen (Tylenol 325mg Tab) 650 mg PO Q6H PRN PRN Reason: Pain, moderate (4-7) Al Hydrox/Mg Hydrox/Simethicone (Maalox Plus 30 Ml) 30 ml PO DAILY PRN PRN Reason: Upset Stomach Amlodipine Besylate (Norvasc) 10 mg PO DAILY JANINE Last Admin: 01/03/19 08:36 Dose: 10 mg Carbamazepine (Tegretol) 600 mg PO Q12 JANINE; Protocol Last Admin: 01/03/19 17:06 Dose: 600 mg Chlorpromazine (Thorazine) 50 mg PO Q6 PRN; Protocol PRN Reason: Agitation Last Admin: 01/02/19 18:16 Dose: 50 mg Chlorpromazine (Thorazine) 25 mg IM Q6 PRN; Protocol PRN Reason: Agitation Last Admin: 01/03/19 21:07 Dose: 25 mg Clonidine HCl (Catapres) 0.1 mg PO BID PRN PRN Reason: opioid withdrawals Last Admin: 01/03/19 20:24 Dose: 0.1 mg Diazepam (Valium) 5 mg PO Q12 JANINE; Protocol Last Admin: 01/03/19 17:06 Dose: 5 mg Diphenhydramine HCl (Benadryl) 50 mg PO Q6H PRN PRN Reason: Allergy symptoms Last Admin: 01/02/19 18:16 Dose: 50 mg Diphenhydramine HCl (Benadryl) 50 mg IM Q6 PRN PRN Reason: Allergy symptoms Last Admin: 01/03/19 21:08 Dose: 50 mg Folic Acid (Folic Acid) 1 mg PO DAILY JANINE Last Admin: 01/03/19 08:37 Dose: 1 mg Gabapentin (Neurontin) 300 mg PO TID JANINE; Protocol Last Admin: 01/03/19 17:06 Dose: 300 mg Lorazepam (Ativan) 2 mg PO Q6H PRN; Protocol PRN Reason: Anxiety Last Admin: 01/03/19 20:24 Dose: 2 mg Lorazepam (Ativan) 2 mg IM Q6H PRN; Protocol PRN Reason: Anxiety Last Admin: 01/03/19 01:10 Dose: 2 mg Magnesium Hydroxide (Milk Of Magnesia) 30 ml PO DAILY PRN PRN Reason: Constipation Multivitamins/Minerals (Therapeutic-M Tab) 1 tab PO 0800 [facility] Last Admin: 01/03/19 08:37 Dose: 1 tab Nicotine (Nicoderm Cq) 1 patch TD DAILY [facility] Last Admin: 01/03/19 08:36 Dose: 1 patch Quetiapine Fumarate (Seroquel) 150 mg PO BID [facility]; Protocol Last Admin: 01/03/19 16:47 Dose: 150 mg Quetiapine Fumarate (Seroquel) 400 mg PO HS JANINE; Protocol Last Admin: 01/03/19 21:08 Dose: 400 mg Thiamine HCl (Vitamin B1 Tab) 100 mg PO DAILY [facility] Last Admin: 01/03/19 08:36 Dose: 100 mg - Labs Labs: 12/26/18 10:10 12/25/18 21:00
--- NOTE | 2019-01-04 01:43 | CP.PCM.PCO ---
<Kiana Pederson - Last Filed: 01/04/19 01:43> Addendum Addendum: 01/04/19 01:42 OVERNIGHT RESIDENT NOTE KIANA PEDERSON PGY1 Code villeda called for combative patient for 2nd night in a row. Pt given thorazine/ativan with appropriate response. Vitals per nursing report <Jose Denny - Last Filed: 01/04/19 21:09> Attending/Attestation - Attestation I have personally seen and examined this patient.: Yes I have fully participated in the care of the patient.: Yes I have reviewed all pertinent clinical information: Yes
[2019-01-04 02:31] LABS: HEMOGLOBIN 10.5 g/dL (14.0-18.0); MEAN CELL VOLUME 72.6 fl (80.0-105.0); MEAN CORPUSCULAR HEMOGLOBIN 22.7 pg (25.0-35.0); MEAN CORPUSCULAR HGB CONC 31.3 g/dl (31.0-37.0); MEAN PLATELET VOLUME 9.9 fl (7.0-11.0); RBC 4.63 10^6/uL (3.5-6.1); RED CELL DISTRIBUTION WIDTH 18.3 % (11.5-14.5)
[2019-01-04 02:33] LABS: WHITE BLOOD COUNT 7.7 10^3/uL (4.5-11.0)
[2019-01-04 03:12] LABS: ALB/GLOB RATIO 1.2 (1.1-1.8); ALT/SGPT 27 U/L (7-56); AST/SGOT 46 U/L (17-59); BLOOD UREA NITROGEN 22 mg/dL (7-21); CALCIUM 9.2 mg/dL (8.4-10.5); GFR NON-AFRICAN AMERICAN > 60
[2019-01-04] MEDS ORDERED: DiphenhydrAMINE 50 mg/ml Inj IM STA (05:51)
--- NOTE | 2019-01-04 06:36 | CP.PCM.PCO ---
<Tomy Salcido - Last Filed: 01/04/19 06:34> Assessment and Plan - Assessment and Plan (Free Text) Assessment: Code villeda due to agitation and spitting at nurses Plan: 50 mg of Benadryl and 2 mg of Ativan given IM. Patient responded appropriately. <Jose Denny - Last Filed: 01/04/19 21:08> Attending/Attestation - Attestation I have personally seen and examined this patient.: Yes I have fully participated in the care of the patient.: Yes I have reviewed all pertinent clinical information: Yes
[2019-01-04] MEDS: Divalproex 500 mg DR(BID formulation) PO SCH ×2 (10:20→21:11)
[2019-01-04] MEDS: Multivitamin With Minerals Tab PO SCH (10:22)
[2019-01-04 10:59] VITALS: RESP 18
--- NOTE | 2019-01-04 11:47 | PCM.PYCHPN ---
Psychiatric Progress Note - Psychiatric Progress Note Patient seen today, length of contact: 30min Patient Chief Complaint: "I have power to hurt people.." Problems Identified/Issues Discussed: Symptoms, risk/benefits/alternatives of the medications, discharge planning. Medical Problems: TBI, seizure, see HPI Diagnostic Results: 12/26/18 10:10 12/25/18 21:00 Lab Results 12/26/18 10:10: WBC 4.4 L D, RBC 4.47, Hgb 9.8 L, Hct 32.7 L, MCV 73.2 L, MCH 21.9 L, MCHC 30.0 L, RDW 18.5 H, Plt Count 293, MPV 9.7, Neut % (Auto) 51.8, Lymph % (Auto) 30.9, [place] % (Auto) 8.9 H, Eos % (Auto) 7.7 H, Baso % (Auto) 0.7, Lymph # (Auto) 1.4, [place] # (Auto) 0.4, Eos # (Auto) 0.3, Baso # (Auto) 0.03, Absolute Neuts (auto) 2.28 12/26/18 07:30: Iron 29 L, TIBC 385, % Saturation 8 L, Carbamazepine < 3 L 12/26/18 07:30: Fasting Glucose 93, Ferritin 7.1, Triglycerides 42, Cholesterol 147, LDL Cholesterol Direct 65, HDL Cholesterol 72 H 12/26/18 06:00: RPR Nonreactive 12/25/18 22:30: Urine Opiates Screen Positive H, Urine Methadone Screen Negative, Ur Barbiturates Screen Positive H, Ur Phencyclidine Scrn Negative, Ur Amphetamines Screen Negative, U Benzodiazepines Scrn Negative, U Oth Cocaine Metabols Positive H, U Cannabinoids Screen Negative 12/25/18 22:30: Urine Color Yellow, Urine Appearance Clear, Urine pH 6.0, Ur Specific [place] 1.025, Urine Protein Trace H, Urine Glucose (UA) Negative, Urine Ketones Trace H, Urine Blood Negative, Urine Nitrate Negative, Urine Bilirubin Negative, Urine Urobilinogen 1.0 H, Ur Leukocyte Esterase Negative, Urine RBC 0 - 2, Urine WBC None, Ur Epithelial Cells None, Urine Bacteria Trace 12/25/18 21:30: Alcohol, Quantitative 15 H 12/25/18 21:30: Salicylates < 1 L, Acetaminophen < 10.0 L 12/25/18 21:30: WBC 6.2 D, RBC 4.33, Hgb 9.6 L, Hct 31.7 L, MCV 73.2 L, MCH 22.2 L, MCHC 30.3 L, RDW 18.4 H, Plt Count 306, MPV 9.5, Neut % (Auto) 52.2, Lymph % (Auto) 36.7 H, [place] % (Auto) 5.6, Eos % (Auto) 5.0, Baso % (Auto) 0.5, Lymph # (Auto) 2.3, [place] # (Auto) 0.4, Eos # (Auto) 0.3, Baso # (Auto) 0.03, Absolute Neuts (auto) 3.25 12/25/18 21:00: Sodium 141, Potassium 4.2, Chloride 106, Carbon Dioxide 27, Anion Gap 12, BUN 17, Creatinine 1.0, Est GFR ( Amer) > 60, Est GFR (Non- Af Amer) > 60, Random Glucose 105, Calcium 9.0, Magnesium 1.9, Total Bilirubin 0.2, AST 32, ALT 24, Alkaline Phosphatase 128 H, Total Protein 7.4, Albumin 4.1, Globulin 3.3, Albumin/Globulin Ratio 1.2 Vital Signs Temp Pulse Resp BP Pulse Ox 12/27/18 11:14 66 147/106 H 12/27/18 09:23 66 18 147/106 H 12/27/18 05:38 97.2 F L 64 18 154/96 H 98 12/27/18 04:46 97.8 F 68 18 138/88 12/27/18 03:19 97.8 F 64 18 149/96 H 12/27/18 01:51 98.0 F 72 18 138/92 H 12/26/18 21:53 91 H 18 132/95 H 12/26/18 16:00 78 114/74 12/26/18 06:41 98.2 F 63 16 123/82 12/26/18 02:08 98 F 75 18 138/88 99 12/26/18 00:47 98.0 F 80 17 148/76 100 12/25/18 23:07 88 17 148/76 99 12/25/18 20:11 97.8 F 76 18 141/68 100 Temp Pulse Resp BP Pulse Ox 97.4 F L 111 H 18 116/80 98 12/30/18 08:15 01/02/19 16:00 12/30/18 08:15 01/02/19 16:00 12/27/18 05:38 Laboratory Results - last 24 hr 01/04/19 01/04/19 02:00 02:00 WBC 7.7 D RBC 4.63 Hgb 10.5 L Hct 33.6 L MCV 72.6 L MCH 22.7 L MCHC 31.3 RDW 18.3 H Plt Count 284 MPV 9.9 Sodium 141 Potassium 4.4 Chloride 104 Carbon Dioxide 27 Anion Gap 15 BUN 22 H Creatinine 1.0 Est GFR ( Amer) > 60 Est GFR (Non-Af Amer) > 60 Random Glucose 108 Calcium 9.2 Phosphorus 3.9 Magnesium 1.8 Total Bilirubin 0.1 L AST 46 ALT 27 Alkaline Phosphatase 135 H Total Protein 7.4 Albumin 4.0 Globulin 3.4 Albumin/Globulin Ratio 1.2 DSM 5 Symptoms Update: Jadon Louie is a single homeless 43 year old male with a psychiatric history of Schizoaffective Disorder, TBI, profound drug dependency {cocaine, heroin, benzos & alcohol}, numerous psychiatric admissions {20+} within the [facility] system generally due to his drug use, +involuntary commitments to [facility], multiple AMA discharges, chronic noncompliance with aftercare recommendations and medications who presented to the emergency department on 12/25/18 with suicidal ideation. Patient reported that he already tried to hurt himself by cutting his wrists and he presented with superficial cuts on both arms. based on RN report, overnight patient was agitated, paranoid, "I have a power to hurt you",pt was spitting, fighting staff, code Bruno called IM was given. this senior writer evaluated pt at am, pt still requires 1:1. No meaningful conversation possible. PT evaluated pt, recommended MAHNAZ. pt has TBI, has severe cognitive impairment. Neurology consultation appreciated, Keppra was discontinued, Trileptal was initiated, Ativan discontinued, phenobarbital discontinued, diazepam 5 mg twice a day started. Impression: Schizophrenia TBI Most likely patient was noncompliant with her medications for seizures Polysubstance abuse opioid/cocaine/barbiturates Rule out opioid/benzos withdrawals Medication Change: Yes (Depakote resumed) Medical Record Reviewed: Yes Consults ordered or reviewed: Medical consult appreciated Neurology consult appreciated See notes for more detailed information. Medical follow-up appreciated Mental Status Examination - Cognitive Function Orientation: Person Memory: Impaired Attention: Poor Concentration: Poor Association: Loose Fund of Knowledge: Poor - Mood Mood: Depressed - Affect Affect: Flat, Other (labile, odd) - Speech Speech: Loud - Formal Thought Process Formal Thought Process: Hallucinations, Delusions, Paranoia, Loosening of associations - Suicidal Ideation Suicidal Ideation: No - Homicidal Ideation Homicidal Ideation: No Goal/Treatment Plan - Goal/Treatment Plan Need for Continued Stay: Remain at risks for inpatient hospitalization, Severe depression anxiety, Discharge may exacerbated symptoms, Severe functional impairment Progress Toward Problem(s) and Goals/Treatment Plan: Milieu/structure/supportive therapy Medical consult appreciated Neurology consult appreciated December 28, 2018 consultation for discharge plan and social issues Med management Norvasc 10 mg daily carbamazepine 600 mg twice a day for seizures Valium 5 mg twice a day for seizures Gabapentin 300 mg 3 times a day Seroquel increased 150 mg twice a day and 400 mg in the nighttime depakote 500mg po bid for mood stabilization and impulsive Family involvement Follow up on labs Will monitor closely Pt was educated about risk/benefits and alternatives of medications, coping strategies (safety plan, suicide prevention), relapse prevention, importance of follow up with psychiatrist and therapist, stay away from drugs/alcohol/smoking Physical therapy evaluation appreciated [facility] Discharge planning Estimated Date of D/C: 01/08/19
[2019-01-04 16:28] VITALS: PULSE 111
[2019-01-05] MEDS: DiphenhydrAMINE 50 mg/ml Inj IM PRN (01:17)
[2019-01-05 03:08] LABS: TROPONIN I < 0.01 ng/mL
[2019-01-05] MEDS: Multivitamin With Minerals Tab PO SCH (08:41)
--- NOTE | 2019-01-05 09:34 | CARD ---
APPROVED REPORT Date of service: 01/05/2019 EKG Measurement Heart [id number] <Conclusion> Sinus tachycardia Otherwise normal ECG
[2019-01-05] MEDS: Divalproex 500 mg DR(BID formulation) PO SCH ×2 (10:12→21:35)
--- NOTE | 2019-01-05 16:05 | PCM.PYCHPN ---
Psychiatric Progress Note - Psychiatric Progress Note Patient seen today, length of contact: 30min Patient Chief Complaint: "I know if I continue on drugs, I will ..." Problems Identified/Issues Discussed: Symptoms, risk/benefits/alternatives of the medications, discharge planning. Medical Problems: TBI, seizure, see HPI Diagnostic Results: 12/26/18 10:10 12/25/18 21:00 Lab Results 12/26/18 10:10: WBC 4.4 L D, RBC 4.47, Hgb 9.8 L, Hct 32.7 L, MCV 73.2 L, MCH 21.9 L, MCHC 30.0 L, RDW 18.5 H, Plt Count 293, MPV 9.7, Neut % (Auto) 51.8, Lymph % (Auto) 30.9, [place] % (Auto) 8.9 H, Eos % (Auto) 7.7 H, Baso % (Auto) 0.7, Lymph # (Auto) 1.4, [place] # (Auto) 0.4, Eos # (Auto) 0.3, Baso # (Auto) 0.03, Absolute Neuts (auto) 2.28 12/26/18 07:30: Iron 29 L, TIBC 385, % Saturation 8 L, Carbamazepine < 3 L 12/26/18 07:30: Fasting Glucose 93, Ferritin 7.1, Triglycerides 42, Cholesterol 147, LDL Cholesterol Direct 65, HDL Cholesterol 72 H 12/26/18 06:00: RPR Nonreactive 12/25/18 22:30: Urine Opiates Screen Positive H, Urine Methadone Screen Negative, Ur Barbiturates Screen Positive H, Ur Phencyclidine Scrn Negative, Ur Amphetamines Screen Negative, U Benzodiazepines Scrn Negative, U Oth Cocaine Metabols Positive H, U Cannabinoids Screen Negative 12/25/18 22:30: Urine Color Yellow, Urine Appearance Clear, Urine pH 6.0, Ur Specific [place] 1.025, Urine Protein Trace H, Urine Glucose (UA) Negative, Urine Ketones Trace H, Urine Blood Negative, Urine Nitrate Negative, Urine Bilirubin Negative, Urine Urobilinogen 1.0 H, Ur Leukocyte Esterase Negative, Urine RBC 0 - 2, Urine WBC None, Ur Epithelial Cells None, Urine Bacteria Trace 12/25/18 21:30: Alcohol, Quantitative 15 H 12/25/18 21:30: Salicylates < 1 L, Acetaminophen < 10.0 L 12/25/18 21:30: WBC 6.2 D, RBC 4.33, Hgb 9.6 L, Hct 31.7 L, MCV 73.2 L, MCH 22.2 L, MCHC 30.3 L, RDW 18.4 H, Plt Count 306, MPV 9.5, Neut % (Auto) 52.2, Lymph % (Auto) 36.7 H, [place] % (Auto) 5.6, Eos % (Auto) 5.0, Baso % (Auto) 0.5, Lymph # (Auto) 2.3, [place] # (Auto) 0.4, Eos # (Auto) 0.3, Baso # (Auto) 0.03, Absolute Neuts (auto) 3.25 12/25/18 21:00: Sodium 141, Potassium 4.2, Chloride 106, Carbon Dioxide 27, Anion Gap 12, BUN 17, Creatinine 1.0, Est GFR ( Amer) > 60, Est GFR (Non- Af Amer) > 60, Random Glucose 105, Calcium 9.0, Magnesium 1.9, Total Bilirubin 0.2, AST 32, ALT 24, Alkaline Phosphatase 128 H, Total Protein 7.4, Albumin 4.1, Globulin 3.3, Albumin/Globulin Ratio 1.2 Vital Signs Temp Pulse Resp BP Pulse Ox 12/27/18 11:14 66 147/106 H 12/27/18 09:23 66 18 147/106 H 12/27/18 05:38 97.2 F L 64 18 154/96 H 98 12/27/18 04:46 97.8 F 68 18 138/88 12/27/18 03:19 97.8 F 64 18 149/96 H 12/27/18 01:51 98.0 F 72 18 138/92 H 12/26/18 21:53 91 H 18 132/95 H 12/26/18 16:00 78 114/74 12/26/18 06:41 98.2 F 63 16 123/82 12/26/18 02:08 98 F 75 18 138/88 99 12/26/18 00:47 98.0 F 80 17 148/76 100 12/25/18 23:07 88 17 148/76 99 12/25/18 20:11 97.8 F 76 18 141/68 100 Temp Pulse Resp BP Pulse Ox 97.4 F L 111 H 18 116/80 98 12/30/18 08:15 01/02/19 16:00 12/30/18 08:15 01/02/19 16:00 12/27/18 05:38 Laboratory Results - last 24 hr 01/04/19 01/04/19 02:00 02:00 WBC 7.7 D RBC 4.63 Hgb 10.5 L Hct 33.6 L MCV 72.6 L MCH 22.7 L MCHC 31.3 RDW 18.3 H Plt Count 284 MPV 9.9 Sodium 141 Potassium 4.4 Chloride 104 Carbon Dioxide 27 Anion Gap 15 BUN 22 H Creatinine 1.0 Est GFR ( Amer) > 60 Est GFR (Non-Af Amer) > 60 Random Glucose 108 Calcium 9.2 Phosphorus 3.9 Magnesium 1.8 Total Bilirubin 0.1 L AST 46 ALT 27 Alkaline Phosphatase 135 H Total Protein 7.4 Albumin 4.0 Globulin 3.4 Albumin/Globulin Ratio 1.2 DSM 5 Symptoms Update: Jadon Luoie is a single homeless 43 year old male with a psychiatric history of Schizoaffective Disorder, TBI, profound drug dependency {cocaine, heroin, benzos & alcohol}, numerous psychiatric admissions {20+} within the [facility] generally due to his drug use, +involuntary commitments to [facility], multiple AMA discharges, chronic noncompliance with aftercare recommendations and medications who presented to the emergency department on 12/25/18 with suicidal ideation. Patient reported that he already tried to hurt himself by cutting his wrists and he presented with superficial cuts on both arms. based on RN report, overnight patient was agitated, paranoid,again needed to be medicated, patient still required to be on one-to-one observation because impulsivity, agitated behavior. Majority of the time patient agitated at the nighttime. this curriculum writer evaluated pt at am, pt still requires 1:1. there are some improvement with pt's presentation, pt said that he does not want to continue drugs because "If I will continue drugs I will , I don't want to .." Patient very concrete thought process, has TBI, has severe cognitive impairment. PT evaluated pt, recommended MAHNAZ. Neurology consultation appreciated, Keppra was discontinued, Trileptal was initiated, Ativan discontinued, phenobarbital discontinued, diazepam 5 mg twice a day started. Impression: Schizophrenia TBI Most likely patient was noncompliant with her medications for seizures Polysubstance abuse opioid/cocaine/barbiturates Rule out opioid/benzos withdrawals Medication Change: Yes (Depakote, trazodone ) Medical Record Reviewed: Yes Consults ordered or reviewed: Medical consult appreciated Neurology consult appreciated See notes for more detailed information. Medical follow-up appreciated Mental Status Examination - Cognitive Function Orientation: Person Memory: Impaired Attention: Poor Concentration: Poor Association: Loose Fund of Knowledge: Poor - Mood Mood: Depressed - Affect Affect: Flat, Other (labile, odd) - Speech Speech: Loud - Formal Thought Process Formal Thought Process: Hallucinations, Delusions, Paranoia, Loosening of associations - Suicidal Ideation Suicidal Ideation: No - Homicidal Ideation Homicidal Ideation: No Goal/Treatment Plan - Goal/Treatment Plan Need for Continued Stay: Remain at risks for inpatient hospitalization, Severe depression anxiety, Discharge may exacerbated symptoms, Severe functional impairment Progress Toward Problem(s) and Goals/Treatment Plan: Milieu/structure/supportive therapy pt is still on 1:1 observation Medical consult appreciated Neurology consult appreciated December 28, 2018 consultation for discharge plan and social issues Med management Norvasc 10 mg daily carbamazepine 600 mg twice a day for seizures Valium 5 mg twice a day for seizures Gabapentin 300 mg 3 times a day Seroquel increased 400 mg amhs for psychosis depakote 500mg po bid for mood stabilization and impulsive trazodone 50mg po hs for insomnia, mood Family involvement Follow up on labs Will monitor closely Pt was educated about risk/benefits and alternatives of medications, coping strategies (safety plan, suicide prevention), relapse prevention, importance of follow up with psychiatrist and therapist, stay away from drugs/alcohol/smoking Physical therapy evaluation appreciated MAHNAZ Discharge planning Estimated Date of D/C: 01/08/19
[2019-01-06] MEDS: DiphenhydrAMINE 50 mg/ml Inj IM PRN (02:23)
[2019-01-06] MEDS ORDERED: Pantoprazole 20 mg EC Tab PO SCH (06:00)
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
[2019-01-06] MEDS: Multivitamin With Minerals Tab PO SCH ×2 (09:48→10:03)
[2019-01-06] MEDS: Divalproex 500 mg DR(BID formulation) PO SCH ×2 (09:48→10:03)
[2019-01-06 10:02] VITALS: BP 121/80
--- NOTE | 2019-01-06 22:08 | CP.PCM.PN ---
Subjective - Date & Time of Evaluation Date of Evaluation: 01/06/19 Time of Evaluation: 22:05 - Subjective Subjective: Patient was seen at bedside in response to CODE DOLAN announcement. He is sitting in the bed, states that he has chest pain, on & off for days, in precordial region, he had been on methadone and expresses to have methadone, is agitated. Medical record was reviewed. This 43 year old AA male was admitted with suicidal ideation,alcohol in toxication. Has PMH of bipolar disorder, opiate abuse, depression, epilepsy,alcohol abuse. Objective - Vital Signs/Intake and Output Vital Signs (last 24 hours): Temp Pulse Resp BP Pulse Ox 97.3 F L 111 H 18 121/80 98 01/03/19 07:12 01/05/19 16:25 01/04/19 10:56 01/05/19 16:25 12/27/18 05:38 - Labs Labs: 01/04/19 02:00 01/04/19 02:00 - Constitutional Appears: Well, No Acute Distress - Head Exam Head Exam: ATRAUMATIC, NORMAL INSPECTION, NORMOCEPHALIC - Eye Exam Eye Exam: Normal appearance - ENT Exam ENT Exam: Normal External Ear Exam - Neck Exam Neck Exam: Normal Inspection - Respiratory Exam Respiratory Exam: NORMAL BREATHING PATTERN - Cardiovascular Exam Cardiovascular Exam: absent: JVD - GI/Abdominal Exam GI & Abdominal Exam: absent: Distended - Rectal Exam Rectal Exam: Deferred - Exam Additional comments: Deferred. - Extremities Exam Extremities Exam: Normal Inspection - Back Exam Back Exam: NORMAL INSPECTION - Neurological Exam Neurological Exam: Altered - Psychiatric Exam Psychiatric exam: Agitated - Skin Skin Exam: Normal Color Assessment and Plan - Assessment and Plan (Free Text) Assessment: Agitation. Alcohol intoxication. Alcohol withdrawal. Alcohol abuse. Opiate abuse. Opiate withdrawal Bipolar disorder. Depression. Epilepsy. Anemia. Multiple drug allergies. Plan: Geodon 20 mg IM x1. Thorazine 50 mg IM x 1. Ativan 4 mg IV x1. librium 50 mg po q6h Clonidine 0.1 mg PO BID MV 1po daily Thiamine 100 mg po daily Banana bag x 1 Seizure precautions CIWA protocol. Observation. Continue present management. Will contact psychiatry prn.
[2019-01-06] MEDS ORDERED: Multivitamin (MVI) 10 ML, Thiamine 100 MG, Folic Acid 1 MG in Sodium Chloride 0.9% 1,00... IV ONE (22:16)
[2019-01-07] MEDS ORDERED: Multivitamin Therapeutic Tab PO SCH (08:00)
== END 2019-01-06 17:17 | disposition short-term general hospital (02) | DRG 430 ==
LOC: ED 20:06 → ERH 23:44 → PSYC 12-26 00:55
PROVIDERS: ADMIT Psychologist; ATTEND Psychologist
DX: F25.9 Schizoaffective disorder, unspecified (principal); F10.239 Alcohol dependence with withdrawal, unspecified; F11.23 Opioid dependence with withdrawal; F17.213 Nicotine dependence, cigarettes, with withdrawal; D50.9 Iron deficiency anemia, unspecified; F10.229 Alcohol dependence with intoxication, unspecified; F11.259 Opioid dependence with opioid-induced psychotic disorder, unspecified; F14.259 Cocaine dependence with cocaine-induced psychotic disorder, unspecified; F31.9 Bipolar disorder, unspecified; F41.9 Anxiety disorder, unspecified; G40.909 Epilepsy, unspecified, not intractable, without status epilepticus; G47.00 Insomnia, unspecified; I10 Essential (primary) hypertension; S61.511A Laceration without foreign body of right wrist, initial encounter; S61.512A Laceration without foreign body of left wrist, initial encounter; X78.9XXA Intentional self-harm by unspecified sharp object, initial encounter; Z59.0 Homelessness; Z79.899 Other long term (current) drug therapy; Z87.01 Personal history of pneumonia (recurrent); Z88.9 Allergy status to unspecified drugs, medicaments and biological substances; Z91.14 Patient's other noncompliance with medication regimen; Z91.19 Patient's noncompliance with other medical treatment and regimen; Z91.5 Personal history of self-harm; Z91.81 History of falling; Z87.820 Personal history of traumatic brain injury; Z87.81 Personal history of (healed) traumatic fracture; F60.2 Antisocial personality disorder; Z86.19 Personal history of other infectious and parasitic diseases; Y90.0 Blood alcohol level of less than 20 mg/100 ml

== ENCOUNTER 2019-01-06 10:40 | Inpatient (IN) | payer MEDICAID ==
[2019-01-06] MEDS ORDERED: Sodium Chloride 0.9% 1,000 ML IV STA (10:51)
[2019-01-06 11:23] LABS: BASO # 0.02 K/mm3 (0.0-2.0); BASO % 0.1 % (0.0-3.0); EOS # 0.4 (0.0-0.7); HEMOGLOBIN 10.3 g/dL (14.0-18.0); LYMPH % 14.8 % (22.0-35.0); MEAN CELL VOLUME 72.5 fl (80.0-105.0); MEAN CORPUSCULAR HEMOGLOBIN 22.5 pg (25.0-35.0); MEAN PLATELET VOLUME 9.8 fl (7.0-11.0); MONO # 1.2 (0.1-0.6); MONO % 8.7 % (1.0-6.0); RBC 4.58 10^6/uL (3.5-6.1); RED CELL DISTRIBUTION WIDTH 18.5 % (11.5-14.5); WHITE BLOOD COUNT 13.7 10^3/uL (4.5-11.0)
[2019-01-06 11:31] LABS: INR 0.99; PARTIAL THROMBOPLASTIN TIME 28.7 Seconds (26.9-38.3); PROTHROMBIN TIME 11.2 SECONDS (9.4-12.5)
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
[2019-01-06] MEDS ORDERED: Iohexol 240 (50 ml) ONE (11:49)
[2019-01-06 11:53] LABS: ALB/GLOB RATIO 1.1 (1.1-1.8); ALBUMIN 4.1 g/dL (3.0-4.8); ALT/SGPT 33 U/L (7-56); AST/SGOT 65 U/L (17-59); BLOOD UREA NITROGEN 29 mg/dL (7-21); CALCIUM 9.2 mg/dL (8.4-10.5); GFR NON-AFRICAN AMERICAN > 60; LIPASE 35 U/L (23-300)
--- NOTE | 2019-01-06 14:36 | RAD ---
Date of service: 01/06/2019 PROCEDURE: CHEST RADIOGRAPH, 1 VIEW HISTORY: Vomiting COMPARISON: 12/25/2018. FINDINGS: LUNGS: The lungs are well inflated and clear. PLEURA: No pneumothorax or pleural effusion. CARDIOVASCULAR: The heart is normal in size. No aortic atherosclerotic calcifications present. OSSEOUS STRUCTURES: Within normal limits for the patient's age. VISUALIZED UPPER ABDOMEN: Normal. OTHER FINDINGS: None. IMPRESSION: No active pulmonary disease.
--- NOTE | 2019-01-06 15:49 | CT ---
Date of service: 01/06/2019 PROCEDURE: CT Abdomen and Pelvis with contrast HISTORY: GI bleed, s/p colostomy reversal COMPARISON: None available. TECHNIQUE: CT scan of the abdomen and pelvis was performed without administration of intravenous contrast. Oral contrast was administered. Coronal and sagittal reformatted images were obtained. Contrast dose: Radiation dose: Total exam DLP = 873.49 mGy-cm. This CT exam was performed using one or more of the following dose reduction techniques: Automated exposure control, adjustment of the mA and/or kV according to patient size, and/or use of iterative reconstruction technique. FINDINGS: LOWER THORAX: There is linear subsegmental atelectasis in the right lower lobe and dependent atelectasis in the lung bases. LIVER: Normal in size. There is a 1.6 cm simple cyst in the superior right hepatic lobe no ductal dilatation. GALLBLADDER AND BILE DUCTS: Well distended. No calcified gallstones, wall thickening or pericholecystic fluid. PANCREAS: Normal in size with homogeneous enhancement. No gross lesion or ductal dilatation. SPLEEN: Normal in size and appearance. ADRENALS: No discrete nodule. KIDNEYS AND URETERS: Normal in size with homogeneous enhancement. No hydronephrosis. No solid mass. VASCULATURE: No aortic aneurysm. There are no aortic atherosclerotic calcifications or mural plaque present. BOWEL: The stomach is decompressed. Proximal small bowel loops are normal in caliber. Contrast material is identified in the normal caliber mid small bowel lobes. The distal small bowel loops are decompressed. There is large amount of stool in the colon. No evidence for bowel wall thickening. APPENDIX: Normal appendix. PERITONEUM: No free fluid. No free air. LYMPH NODES: No enlarged lymph nodes. BLADDER: Well distended and normal in appearance. REPRODUCTIVE: The prostate gland is normal in size. BONES: No acute fracture. An intramedullary byron is identified in the right proximal femur. 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 OTHER FINDINGS: None. IMPRESSION: No acute abdominal or pelvic abnormality. Oral contrast material is identified in normal caliber mid small bowel loops. Large amount of stool in the colon consistent with constipation and fecal stasis. No bowel obstruction.
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
[2019-01-06] MEDS ORDERED: Divalproex 250 mg DR (BID formulation) PO STA (20:44)
--- NOTE | 2019-01-06 22:18 | CP.PCM.PCO ---
<Alhaji Sharma - Last Filed: 01/06/19 22:15> Addendum Addendum: PGY1 Overnight Note - Code Santos S: Patient agitated. Code santos was called. Security at bedside. Previously noted by nursing staff to be aggressive and punching staff. Patient asking for methadone however this is not confirmed in his home meds. O: VSS. Lungs CTA b/l. Heart RRR. A: Agitation P: administered thorazine 50mg PO, Geodon 20mg IM stat, and ativan 4mg IM once. Will monitor. <Jose Denny - Last Filed: 01/06/19 22:39> Attending/Attestation - Attestation I have personally seen and examined this patient.: Yes I have fully participated in the care of the patient.: Yes I have reviewed all pertinent clinical information: Yes
[2019-01-06] MEDS ORDERED: Multivitamin (MVI) 10 ML, Thiamine 100 MG, Folic Acid 1 MG in Sodium Chloride 0.9% 1,00... IV ONE (22:25)
--- NOTE | 2019-01-06 22:33 | CP.PCM.PN ---
Subjective - Date & Time of Evaluation Date of Evaluation: 01/06/19 Time of Evaluation: 22:32 - Subjective Subjective: Patient was seen at bedside in response to CODE DOLAN announcement. He is sitting in the bed, states that he has chest pain, on & off for days, in precordial region, he had been on methadone and expresses to have methadone, is agitated. Medical record was reviewed. This 43 year old AA male was admitted with suicidal ideation,alcohol in toxication. Has PMH of bipolar disorder, opiate abuse, depression, epilepsy,alcohol abuse. Objective - Vital Signs/Intake and Output Vital Signs (last 24 hours): Temp Pulse Resp BP Pulse Ox 98.6 F 101 H 18 103/61 99 01/06/19 18:05 01/06/19 18:05 01/06/19 18:05 01/06/19 21:12 01/06/19 18:05 - Medications Medications: Current Medications Amlodipine Besylate (Norvasc) 10 mg PO DAILY JANINE Carbamazepine (Tegretol) 600 mg PO BID JANINE; Protocol Chlordiazepoxide (Librium) 50 mg PO Q8 JANINE; Protocol Clonidine HCl (Catapres) 0.1 mg PO BID JANINE Diazepam (Valium) 5 mg PO BID JANINE; Protocol Divalproex Sodium (Depakote Dr (*Bid*)) 500 mg PO BID JANINE; Protocol Folic Acid (Folic Acid) 1 mg PO DAILY JANINE Gabapentin (Neurontin) 300 mg PO TID JANINE; Protocol Gabapentin (Neurontin) 300 mg PO STAT JANINE; Protocol Last Admin: 01/06/19 21:10 Dose: 300 mg Multivitamins/Vitamin C 10 ml/Thiamine HCl 100 mg/ Folic Acid 1 mg/ Sodium Chloride 1,011.2 mls @ 100 mls/hr IV .Q10H7M ONE Stop: 01/07/19 08:31 Multivitamins (Thera Tab) 1 tab PO 0800 JANINE Quetiapine Fumarate (Seroquel) 400 mg PO HS JANINE; Protocol Last Admin: 01/06/19 21:14 Dose: 400 mg Thiamine HCl (Vitamin B1 Tab) 100 mg PO DAILY JANINE Trazodone HCl (Desyrel) 50 mg PO HS JANINE Last Admin: 01/06/19 21:10 Dose: 50 mg - Labs Labs: 01/06/19 11:15 05/11/19 11:15 PT 11.2 SECONDS (9.4-12.5) 01/06/19 11:15 INR 0.99 01/06/19 11:15 APTT 28.7 Seconds (26.9-38.3) 01/06/19 11:15 - Constitutional Appears: No Acute Distress - Head Exam Head Exam: ATRAUMATIC, NORMAL INSPECTION, NORMOCEPHALIC - Eye Exam Eye Exam: Normal appearance - ENT Exam ENT Exam: Normal External Ear Exam - Neck Exam Neck Exam: Normal Inspection - Respiratory Exam Respiratory Exam: NORMAL BREATHING PATTERN - Cardiovascular Exam Cardiovascular Exam: absent: JVD - GI/Abdominal Exam GI & Abdominal Exam: absent: Distended - Rectal Exam Rectal Exam: Deferred - Exam Additional comments: Deferred. - Extremities Exam Extremities Exam: Normal Inspection - Back Exam Back Exam: NORMAL INSPECTION - Neurological Exam Neurological Exam: Altered - Psychiatric Exam Psychiatric exam: Agitated - Skin Skin Exam: Normal Color Assessment and Plan - Assessment and Plan (Free Text) Assessment: Agitation. Alcohol intoxication. Alcohol withdrawl. Opiate withdrawal. Alcohol abuse. Opiate abuse. Bipolar disorder. Depression. Epilepsy. Anemia. Multiple drug allergies. Plan: Geodon 20 mg IM x1. Thorazine 50 mg IM x 1. Ativan 4 mg IV x1. Seizure precautions. CIWA Banana bag MV Thiamine Folic acid Librium Clonidine 0.1 mg PO BID Observation. Continue present management. Will contact psychiatry prn.
[2019-01-06 23:26] VITALS: BMI 25.1
[2019-01-06] MEDS ORDERED: Pneumococcal 23-Valent Vaccine IM ONE (23:26)
[2019-01-07] MEDS: Sodium Chloride 0.9% 1,000 ML IV SCH (05:22)
--- NOTE | 2019-01-07 05:37 | CARD ---
APPROVED REPORT Date of service: 01/06/2019 EKG Measurement Heart [id number] <Conclusion> Sinus tachycardia Otherwise normal ECG
[2019-01-07] MEDS: Multivitamin Therapeutic Tab PO SCH (08:28)
[2019-01-07 08:38] LABS: ALB/GLOB RATIO 1.1 (1.1-1.8); ALBUMIN 3.8 g/dL (3.0-4.8); ALT/SGPT 26 U/L (7-56); AST/SGOT 67 U/L (17-59); BLOOD UREA NITROGEN 21 mg/dL (7-21); CALCIUM 9.2 mg/dL (8.4-10.5); GFR NON-AFRICAN AMERICAN > 60
[2019-01-07] MEDS: Divalproex 250 mg DR (BID formulation) PO SCH ×2 (09:46→17:28)
[2019-01-07] MEDS ORDERED: Divalproex 500 mg DR(BID formulation) PO SCH (10:00)
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
[2019-01-07] MEDS ORDERED: Insulin Regular 1 UNITS/0.01 ML ML SC STA (12:57)
[2019-01-07] MEDS ORDERED: Dextrose 50% SYRINGE Inj (50 ml) IVP ONE (12:57)
[2019-01-07] MEDS: POLYETHYLENE GLYCOL 3350 17 GM/Dose PACKET PO SCH ×2 (13:18→17:28)
--- NOTE | 2019-01-07 15:53 | CP.PCM.PN ---
<Norm Olivier - Last Filed: 01/07/19 15:49> Subjective - Date & Time of Evaluation Date of Evaluation: 01/07/19 Time of Evaluation: 15:50 - Subjective Subjective: Medicine progress note - unique PGy - 2 Patient seen and examined at bedside; patient has been having agitated episodes overnight in which he has been attacking staff. Patient has no acute complaints on interview but per nursing staff patient had a bout of urinary incontinence. Objective - Vital Signs/Intake and Output Vital Signs (last 24 hours): Temp Pulse Resp BP Pulse Ox 98.0 F 104 H 20 122/72 96 01/07/19 06:00 01/07/19 06:00 01/07/19 06:00 01/07/19 06:00 01/07/19 06:00 Intake and Output: 01/07/19 01/07/19 06:59 18:59 Intake Total 1290 Balance 1290 - Medications Medications: Current Medications Amlodipine Besylate (Norvasc) 10 mg PO DAILY [facility] Last Admin: 01/07/19 09:46 Dose: Not Given Carbamazepine (Tegretol) 600 mg PO BID [facility]; Protocol Last Admin: 01/07/19 09:47 Dose: Not Given Clonidine HCl (Catapres) 0.1 mg PO BID [facility] Last Admin: 01/07/19 09:46 Dose: Not Given Diazepam (Valium) 5 mg PO BID [facility]; Protocol Last Admin: 01/07/19 09:47 Dose: Not Given Divalproex Sodium (Depakote Dr (*Bid*)) 500 mg PO BID [facility]; Protocol Last Admin: 01/07/19 09:46 Dose: Not Given Docusate Sodium (Colace) 100 mg PO BID [facility] Last Admin: 01/07/19 09:46 Dose: Not Given Folic Acid (Folic Acid) 1 mg PO DAILY [facility] Last Admin: 01/07/19 09:46 Dose: Not Given Gabapentin (Neurontin) 300 mg PO TID [facility]; Protocol Last Admin: 01/07/19 13:19 Dose: 300 mg Gabapentin (Neurontin) 300 mg PO STAT [facility]; Protocol Last Admin: 01/06/19 21:10 Dose: 300 mg Sodium Chloride (Sodium Chloride 0.9%) 1,000 mls @ 200 mls/hr IV .Q5H [facility] Last Admin: 01/07/19 05:22 Dose: Not Given Multivitamins (Thera Tab) 1 tab PO 0800 [facility] Last Admin: 01/07/19 08:28 Dose: Not Given Pantoprazole Sodium (Protonix Inj) 40 mg IVP DAILY [facility] Last Admin: 01/07/19 09:46 Dose: Not Given Polyethylene Glycol (Miralax) 17 gm PO BID [facility] Last Admin: 01/07/19 13:18 Dose: 17 gm Quetiapine Fumarate (Seroquel) 400 mg PO HS [facility]; Protocol Last Admin: 01/06/19 21:14 Dose: 400 mg Quetiapine [facility]ate (Seroquel) [facility]; Protocol Thiamine HCl (Vitamin B1 Tab) 100 mg PO DAILY [facility] Last Admin: 01/07/19 09:47 Dose: Not Given Trazodone HCl (Desyrel) 50 mg PO HS [facility] Last Admin: 01/06/19 21:10 Dose: 50 mg - Labs Labs: 01/06/19 11:15 01/07/19 05:45 PT 11.2 SECONDS (9.4-12.5) 01/06/19 11:15 INR 0.99 01/06/19 11:15 APTT 28.7 Seconds (26.9-38.3) 01/06/19 11:15 - Constitutional Appears: Well - Head Exam Head Exam: ATRAUMATIC, NORMAL INSPECTION, NORMOCEPHALIC - Eye Exam Eye Exam: EOMI, Normal appearance, PERRL Pupil Exam: NORMAL ACCOMODATION, PERRL - ENT Exam ENT Exam: Mucous Membranes Moist, Normal Exam - Neck Exam Neck Exam: Full ROM, Normal Inspection. absent: Lymphadenopathy - Respiratory Exam Respiratory Exam: Clear to Ausculation Bilateral, NORMAL BREATHING PATTERN - Cardiovascular Exam Cardiovascular Exam: REGULAR RHYTHM, +S1, +S2. absent: Murmur - GI/Abdominal Exam GI & Abdominal Exam: Soft, Normal Bowel Sounds. absent: Tenderness - Extremities Exam Extremities Exam: Full ROM, Normal Capillary Refill, Normal Inspection. absent: Joint Swelling, Pedal Edema - Back Exam Back Exam: NORMAL INSPECTION - Neurological Exam Neurological Exam: Alert, Awake, CN II-XII Intact, Normal Gait, Oriented x3 - Psychiatric Exam Psychiatric exam: Normal Affect, Normal Mood - Skin Skin Exam: Dry, Intact, Normal Color, Warm Assessment and Plan - Assessment and Plan (Free Text) Assessment: 43 M with a past medical history of epillepsy, schizoeffactive disorder, traumatic brain injury, alcohol and drug (cocaine, heroin, benzodiazepene) dependency who had 2 episodes of coffee ground emesis overnight while on the psych unit. Plan: Iron deficiency anemia - Rule out GI bleed - GI consulted: has now advanced diet - Continue with protonix IVP - Clear liquid diet - Monitor H/H Hx Shizoaffective disorder - Continue: valium, seroquel, trazodone - Psychiatry consulted Hx epilepsy - Continue depakote, tegretol , neurontin Hypertension - Continue norvasc Rhabdomyolysis - Continue with fluid hydration - Monitor electrolytes and CPK DVT ppx: will hold off on anticoagulation considering bleed GI ppx: protonix <Ivonne Jaimes - Last Filed: 01/07/19 16:10> Objective - Vital Signs/Intake and Output Vital Signs (last 24 hours): Temp Pulse Resp BP Pulse Ox 98.0 F 104 H 20 122/72 96 01/07/19 06:00 01/07/19 06:00 01/07/19 06:00 01/07/19 06:00 01/07/19 06:00 Intake and Output: 01/07/19 01/07/19 06:59 18:59 Intake Total 1290 Balance 1290 - Medications Medications: Current Medications Amlodipine Besylate (Norvasc) 10 mg PO DAILY [facility] Last Admin: 01/07/19 09:46 Dose: Not Given Carbamazepine (Tegretol) 600 mg PO BID [facility]; Protocol Last Admin: 01/07/19 09:47 Dose: Not Given Clonidine HCl (Catapres) 0.1 mg PO BID [facility] Last Admin: 01/07/19 09:46 Dose: Not Given Diazepam (Valium) 5 mg PO BID [facility]; Protocol Last Admin: 01/07/19 09:47 Dose: Not Given Divalproex Sodium (Depakote Dr (*Bid*)) 500 mg PO BID [facility]; Protocol Last Admin: 01/07/19 09:46 Dose: Not Given Docusate Sodium (Colace) 100 mg PO BID [facility] Last Admin: 01/07/19 09:46 Dose: Not Given Folic Acid (Folic Acid) 1 mg PO DAILY [facility] Last Admin: 01/07/19 09:46 Dose: Not Given Gabapentin (Neurontin) 300 mg PO TID [facility]; Protocol Last Admin: 01/07/19 13:19 Dose: 300 mg Gabapentin (Neurontin) 300 mg PO STAT [facility]; Protocol Last Admin: 01/06/19 21:10 Dose: 300 mg Sodium Chloride (Sodium Chloride 0.9%) 1,000 mls @ 200 mls/hr IV .Q5H [facility] Last Admin: 01/07/19 05:22 Dose: Not Given Multivitamins (Thera Tab) 1 tab PO 0800 [facility] Last Admin: 01/07/19 08:28 Dose: Not Given Pantoprazole Sodium (Protonix Inj) 40 mg IVP DAILY [facility] Last Admin: 01/07/19 09:46 Dose: Not Given Polyethylene Glycol (Miralax) 17 gm PO BID [facility] Last Admin: 01/07/19 13:18 Dose: 17 gm Quetiapine Fumarate (Seroquel) 400 mg PO HS [facility]; Protocol Last Admin: 01/06/19 21:14 Dose: 400 mg Quetiapine Fumarate (Seroquel) 400 mg PO QAM [facility]; Protocol Thiamine HCl (Vitamin B1 Tab) 100 mg PO DAILY [facility] Last Admin: 01/07/19 09:47 Dose: Not Given Trazodone HCl (Desyrel) 50 mg PO HS [facility] Last Admin: 01/06/19 21:10 Dose: 50 mg - Labs Labs: 01/06/19 11:15 01/07/19 05:45 PT 11.2 SECONDS (9.4-12.5) 01/06/19 11:15 INR 0.99 01/06/19 11:15 APTT 28.7 Seconds (26.9-38.3) 01/06/19 11:15 Attending/Attestation - Attestation I have personally seen and examined this patient.: Yes I have fully participated in the care of the patient.: Yes I have reviewed all pertinent clinical information, including history, physical exam and plan: Yes Notes (Text): 01/07/19 16:05 43 year old male with past medical history of schizoaffective disorder, seizure disorder, traumatic brain injury and alcohol/substance abuse who was transferred from psychiatric unit after 2 episodes of coffee ground emesis. Labs were significant for microcytic iron deficiency anemia and rhabdomyolysis. CT abd/pelvis showed constipation. He has had no further episodes of vomiting since. He is on iv protonix, miralax and liquid diet which was advanced to soft today by GI. Will follow up with GI recommendations. Rhabdomyolysis is improving with iv fluids. Noted to have hyperkalemia 5.8 this morning. Kayexalate, insulin and dextrose give. Will follow up on repeat potassium. Resume medications for seizure disorder and schizoaffective disorder. Psychiatry follow up requested. 1:1 for behavorial disturbances. Counselled on risks of continue substance abuse. Counselled on alcohol abstinence. Ivonne Jaimes MD Hospitalist.
--- NOTE | 2019-01-07 20:21 | CON ---
DATE: 01/07/2019 GASTROENTEROLOGY CONSULTATION REQUESTING PHYSICIAN: Dr. Jaimes. REASON FOR CONSULTATION: I have been asked to see this 43-year-old male with a long psychiatric history, multiple ER visits for polysubstance abuse to [facility] as well as [facility], who comes to the hospital with a suicide attempt. The patient apparently had two episodes of coffee-ground emesis and was agitated requiring sedation. He is a poor historian. He has a history of schizophrenia and traumatic brain injury as well as hepatitis C and polysubstance abuse with a seizure disorder. He tolerated liquid diet and is stating that he is hungry asking for food. He has a history of alcohol, tobacco, and multiple drug use. He currently denies any abdominal pain, vomiting, rectal bleeding, melena, or diarrhea. PAST MEDICAL HISTORY: As above. Again, he has a history of schizophrenia, polysubstance abuse, epilepsy, hepatitis C, traumatic brain injury. PAST SURGICAL HISTORY; Notable for colostomy with reversal. SOCIAL HISTORY: He admits to regular alcohol and tobacco use and illicit drug use. REVIEW OF SYSTEMS: A 14-point review of systems is notable for coffee-ground vomiting. MEDICATIONS AT HOME: Include Keppra, Tegretol, phenobarbital, and Depakote. PHYSICAL EXAMINATION: GENERAL: Middle-aged male, awake in no distress. VITAL SIGNS: Reveal temperature of 98, blood pressure 122/72, heart rate of 104. HEENT: Reveals sclerae to be white. Conjunctivae pink. NECK: Supple. CHEST: Lungs are clear. HEART: Exam reveals a regular rate and rhythm. ABDOMEN: Soft, nontender. No mass. EXTREMITIES: Show no edema. LABORATORY DATA: Reveal white blood cell count 13.7, hemoglobin 10.3. Chemistries reveal potassium of 5.8, AST 67, ALT 26. IMPRESSION: This is a 43-year-old male with polysubstance abuse, history of schizophrenia; admitted with suicide attempt. The patient has chronic anemia. His blood count currently is essentially unchanged from several months ago when his hemoglobin was 9.8. There is no evidence of active bleeding. His coffee-ground emesis is most likely secondary to gastritis. CT scan of the abdomen and pelvis was negative for any masses throughout the GI tract or any acute findings. He does have increased stool throughout the colon. RECOMMENDATIONS: 1. Advance to a soft diet. 2. Continue Protonix once a day. 3. Would start MiraLax 17 g b.i.d. Michele Foy MD [facility] # [id number]
[2019-01-07] MEDS ORDERED: DiphenhydrAMINE 50 mg/ml Inj IVP PRN ×2 (20:33→20:47)
--- NOTE | 2019-01-07 21:34 | CON ---
DATE: 01/07/2019 HISTORY OF PRESENT ILLNESS: Jadon Louie is a single 43-year-old male with a psychiatric history of schizoaffective disorder, TBI, profound drug dependency including, cocaine, heroin, benzodiazepines, and alcohol. Numerous psychiatric admissions more than 20 within [facility] which are generally due to drug use including involuntary commitments to [facility], chronic noncompliance with aftercare recommendations and medications, who was treated on the psychiatric unit for depression, suicidal thoughts, and disorganization after presenting to the ER on 12/25/2018. In general, the patient has been extremely agitated, volatile, disorganized, paranoid, and difficult to control while he has been on the psychiatric unit. The patient has required multiple p.r.n. and there have been multiple code villeda. He was recently transferred to the medical floor yesterday 01/06/2019, due to two episode of coffee ground emesis while in the psychiatric unit and while the patient has been in the medical floor, he has continued to be uncooperative, disorganized, unpredictable, and difficult to maintain a coherent interview with. There has been at least 2 code villeda thus far. His focus is inconsistent and memory is poor. He is also paranoid and this provider cannot rule out the contribution of delirium, further complicating his psychiatric course. Per Dr. Rodriguez's notes, the patient was treated with Valium b.i.d., Neurontin 300 mg t.i.d., Seroquel 400 mg a.m. and at bedtime for psychosis, Depakote 500 mg b.i.d. and trazodone 50 mg at bedtime. This provider will restart his antipsychotic and this psychotropics will help while he is being evaluating and medically stabilize on the medical floor. His insight and judgment are considered to be poor at this time. Vital signs and labs were reviewed. PSYCHIATRIC MEDICATIONS: On the medical floor include, Valium 5 mg b.i.d., Depakote 500 mg b.i.d., Neurontin 300 mg t.i.d., Seroquel 400 mg at bedtime, and trazodone 50 mg at bedtime. IMPRESSION: Schizoaffective disorder, polysubstance abuse dependency, the patient has been hospitalized for over 2 weeks at this time and it is very highly unlikely that he is still withdrawing from illicit substance. Rule out contribution of delirium, worsening the patient's already poor impulse control and behavior. RECOMMENDATIONS: At this time, we will increase Seroquel to 400 mg in a.m. and at bedtime. Continue other psychiatric medications. Psychiatry will continue to followup with the patient on the medical floor while he is being evaluated and stabilized. As the patient does not sign involuntarily, he should absolutely be at [facility] for involuntary commitment. His impulses and motivations are unpredictable at this time. Gena Avila MD
--- NOTE | 2019-01-08 02:10 | CP.PCM.PN ---
Subjective - Date & Time of Evaluation Date of Evaluation: 01/08/19 Time of Evaluation: 02:10 - Subjective Subjective: Patient was seen at bedside in response to CODE DOLAN announcement. He is agitated. Medical record was reviewed. This 43 year old AA male was admitted with suicidal ideation,alcohol intoxication. PMH: depression, epilepsy,bipolar disorder, opiate abuse, alcohol abuse. Objective - Vital Signs/Intake and Output Vital Signs (last 24 hours): Temp Pulse Resp BP Pulse Ox 98.0 F 104 H 20 122/72 96 01/07/19 06:00 01/07/19 06:00 01/07/19 06:00 01/07/19 06:00 01/07/19 06:00 Intake and Output: 01/07/19 01/08/19 18:59 06:59 Intake Total 1680 Output Total 1500 Balance 180 - Medications Medications: Current Medications Carbamazepine (Tegretol) 600 mg PO BID [facility]; Protocol Last Admin: 01/07/19 17:28 Dose: 600 mg Clonidine HCl (Catapres) 0.1 mg PO BID [facility] Last Admin: 01/07/19 17:33 Dose: Not Given Diazepam (Valium) 5 mg PO BID [facility]; Protocol Last Admin: 01/07/19 17:28 Dose: 5 mg Diphenhydramine HCl (Benadryl) 50 mg IVP Q4H PRN PRN Reason: Allergy symptoms Last Admin: 01/07/19 21:50 Dose: 50 mg Divalproex Sodium (Depakote Dr (*Bid*)) 500 mg PO BID [facility]; Protocol Last Admin: 01/07/19 17:28 Dose: 500 mg Docusate Sodium (Colace) 100 mg PO BID [facility] Last Admin: 01/07/19 17:33 Dose: Not Given Folic Acid (Folic Acid) 1 mg PO DAILY [facility] Last Admin: 01/07/19 09:46 Dose: Not Given Gabapentin (Neurontin) 300 mg PO TID [facility]; Protocol Last Admin: 01/07/19 17:28 Dose: 300 mg Sodium Chloride (Sodium Chloride 0.9%) 1,000 mls @ 200 mls/hr IV .Q5H [facility] Last Admin: 01/07/19 05:22 Dose: Not Given Multivitamins (Thera Tab) 1 tab PO 0800 [facility] Last Admin: 05/12/19 08:28 Dose: Not Given Pantoprazole Sodium (Protonix Inj) 40 mg IVP DAILY [facility] Last Admin: 01/07/19 09:46 Dose: Not Given Polyethylene Glycol (Miralax) 17 gm PO BID [facility] Last Admin: 01/07/19 17:28 Dose: 17 gm Quetiapine Fumarate (Seroquel) 400 mg PO HS [facility]; Protocol Last Admin: 01/07/19 21:35 Dose: 400 mg Quetiapine [facility] ([facility]eroquel) [facility] [place] Thiamine HCl (Vitamin B1 Tab) 100 mg PO DAILY [facility] Last Admin: 01/07/19 09:47 Dose: Not Given Trazodone HCl (Desyrel) 50 mg PO HS [facility] Last Admin: 01/07/19 21:34 Dose: 50 mg - Labs Labs: 01/06/19 11:15 01/07/19 05:45 PT 11.2 SECONDS (9.4-12.5) 01/06/19 11:15 INR 0.99 01/06/19 11:15 APTT 28.7 Seconds (26.9-38.3) 01/06/19 11:15 - Constitutional Appears: Well, No Acute Distress - Head Exam Head Exam: ATRAUMATIC, NORMAL INSPECTION, NORMOCEPHALIC - Eye Exam Eye Exam: Normal appearance - ENT Exam ENT Exam: Normal External Ear Exam - Neck Exam Neck Exam: Normal Inspection - Respiratory Exam Respiratory Exam: NORMAL BREATHING PATTERN - Cardiovascular Exam Cardiovascular Exam: absent: JVD - GI/Abdominal Exam GI & Abdominal Exam: absent: Distended - Rectal Exam Rectal Exam: Deferred - Exam Additional comments: Deferred. - Extremities Exam Extremities Exam: Normal Inspection - Back Exam Back Exam: NORMAL INSPECTION - Neurological Exam Neurological Exam: Altered - Psychiatric Exam Psychiatric exam: Agitated - Skin Skin Exam: Normal Color Assessment and Plan - Assessment and Plan (Free Text) Assessment: Agitation. Alcohol intoxication. Alcohol withdrawl. Epilepsy. Anemia. Opiate withdrawal. Alcohol abuse. Opiate abuse. Bipolar disorder. Depression. Multiple drug allergies. Plan: Protonix 40 mg IV daily. Toradol and 50 mg IM stat. Benadryl 50 mg IVP every 4 hours as needed. Colace 100 mg p.o. twice daily. Continue present management.
--- NOTE | 2019-01-08 07:28 | CARD ---
APPROVED REPORT Date of service: 01/07/2019 EKG Measurement Heart [id number] <Conclusion> Sinus tachycardia Otherwise normal ECG
[2019-01-08] MEDS: Divalproex 250 mg DR (BID formulation) PO SCH ×2 (10:32→18:33)
[2019-01-08] MEDS: POLYETHYLENE GLYCOL 3350 17 GM/Dose PACKET PO SCH ×2 (10:32→18:33)
[2019-01-08] MEDS: Multivitamin Therapeutic Tab PO SCH (10:37)
[2019-01-08 12:46] LABS: ARTERIAL BLOOD GAS HCO3 29.9 mmol/L (21-28); ARTERIAL BLOOD GAS HEMOGLOBIN 9.2 g/dL (11.7-17.4); ARTERIAL BLOOD GAS O2 CAPACITY 12.8 mL/dl (16-24); ARTERIAL BLOOD GAS O2 CONTENT 12.7 ML/dl (15-23); ARTERIAL BLOOD GAS O2 SAT 99.3 % (95-98); ARTERIAL BLOOD GAS PCO2 44 mm/Hg (35-45); ARTERIAL BLOOD GAS PH 7.44 (7.35-7.45); ARTERIAL BLOOD GAS TCO2 31.3 mmol.L (22-28)
[2019-01-08] MEDS ORDERED: Albuterol 0.5% Inhal Sol (2.5 mg/0.5 ml) UD IH ONE (15:07)
--- NOTE | 2019-01-08 15:21 | PN ---
DATE: 01/08/2019 SUBJECTIVE: The patient is sitting in bed. He is less agitated. He is tolerating solid foods. There is no further history of nausea and vomiting. He had a bowel movement yesterday which was nonbloody or melanotic. PHYSICAL EXAMINATION: VITAL SIGNS: Reveal temperature of 97.7, blood pressure 125/81, heart rate 90. HEENT: Reveal sclerae to be white. Conjunctivae pale. NECK: Supple. HEART: Reveals regular rate and rhythm. CHEST: Reveal lungs to be clear. ABDOMEN: Soft, nontender. EXTREMITIES: Show no edema. LABORATORY DATA: No new laboratory data are available. IMPRESSION: A 43-year-old male with polysubstance abuse with history of schizoaffective disorder, admitted with suicide attempt. The patient has fresh slit churchill on his wrists from an attempted suicide. He has had numerous ER visits to various care point emergency rooms for polysubstance abuse, coffee-ground emesis was most likely secondary to gastritis. The patient drinks and uses heroin and cocaine. RECOMMENDATIONS: Continue PPI. He is stable from a GI standpoint to be transferred to psychiatric unit. Michele Foy MD
[2019-01-08 15:38] LABS: VENOUS BLOOD GAS BASE EXCESS 5.1 mmol/L (0.0-2.0); VENOUS BLOOD GAS PO2 68 mm/Hg (30-55); VENOUS BLOOD PH 7.42 (7.32-7.43)
--- NOTE | 2019-01-08 15:45 | CP.PCM.PN ---
<Jimbo Godinez - Last Filed: 01/08/19 15:42> Subjective - Date & Time of Evaluation Date of Evaluation: 01/08/19 Time of Evaluation: 11:30 - Subjective Subjective: Jimbo Godinez PGY1 Medicine Progress Note Patient seen and examined at bedside this morning. No acute events reported overnight. Patient has been difficult to draw labs on due to poor access and unable to check electrolytes at this time. Will re-attempt today. Patient states he slept comfortably and is tolerating diet without complaints. Denies fevers, nausea, vomiting, hematemesis, diarrhea, blood in the stool and abdominal pain. Objective - Vital Signs/Intake and Output Vital Signs (last 24 hours): Temp Pulse Resp BP Pulse Ox 97.9 F 90 20 125/81 98 01/08/19 07:55 01/08/19 10:31 01/08/19 07:55 01/08/19 10:31 01/08/19 07:55 Intake and Output: 01/08/19 01/08/19 06:59 18:59 Intake Total 2160 Output Total 1500 Balance 660 - Medications Medications: Current Medications Carbamazepine (Tegretol) 600 mg PO BID [facility]; Protocol Last Admin: 01/08/19 10:54 Dose: 600 mg Clonidine HCl (Catapres) 0.1 mg PO BID [facility] Last Admin: 01/08/19 10:31 Dose: 0.1 mg Diazepam (Valium) 5 mg PO BID [facility]; Protocol Last Admin: 01/08/19 10:34 Dose: 5 mg Diphenhydramine HCl (Benadryl) 50 mg IVP Q4H PRN PRN Reason: Allergy symptoms Last Admin: 01/07/19 21:50 Dose: 50 mg Divalproex Sodium (Depakote Dr (*Bid*)) 500 mg PO BID [facility]; Protocol Last Admin: 01/08/19 10:32 Dose: 500 mg Docusate Sodium (Colace) 100 mg PO BID [facility] Last Admin: 01/08/19 10:31 Dose: 100 mg Folic Acid (Folic Acid) 1 mg PO DAILY [facility] Last Admin: 01/08/19 10:32 Dose: 1 mg Gabapentin (Neurontin) 300 mg PO TID [facility]; Protocol Last Admin: 01/08/19 10:33 Dose: 300 mg Sodium Chloride (Sodium Chloride 0.9%) 1,000 mls @ 200 mls/hr IV .Q5H [facility] Last Admin: 01/07/19 05:22 Dose: Not Given Multivitamins (Thera Tab) 1 tab PO 0800 [facility] Last Admin: 01/08/19 10:37 Dose: 1 tab Pantoprazole Sodium (Protonix Ec Tab) 40 mg PO 0600 [facility] Polyethylene Glycol (Miralax) 17 gm PO BID [facility] Last Admin: 01/08/19 10:32 Dose: 17 gm Quetiapine Fumarate (Seroquel) 400 mg PO HS [facility]; Protocol Last Admin: 01/07/19 21:35 Dose: 400 mg Quetiapine Fumarate (Seroquel) 400 mg PO QAM [facility]; Protocol Last Admin: 01/08/19 10:33 Dose: 400 mg Thiamine HCl (Vitamin B1 Tab) 100 mg PO DAILY [facility] Last Admin: 01/08/19 10:33 Dose: 100 mg Trazodone HCl (Desyrel) 50 mg PO [facility] Last Admin: 01/07/19 21:34 Dose: 50 mg - Labs Labs: 01/06/19 11:15 01/07/19 05:45 PT 11.2 SECONDS (9.4-12.5) 01/06/19 11:15 INR 0.99 01/06/19 11:15 APTT 28.7 Seconds (26.9-38.3) 01/06/19 11:15 - Constitutional Appears: Well - Head Exam Head Exam: ATRAUMATIC, NORMAL INSPECTION, NORMOCEPHALIC - Eye Exam Eye Exam: EOMI, Normal appearance, PERRL Pupil Exam: NORMAL ACCOMODATION, PERRL - ENT Exam ENT Exam: Mucous Membranes Moist, Normal Exam - Neck Exam Neck Exam: Full ROM, Normal Inspection. absent: Lymphadenopathy - Respiratory Exam Respiratory Exam: Clear to Ausculation Bilateral, NORMAL BREATHING PATTERN - Cardiovascular Exam Cardiovascular Exam: REGULAR RHYTHM, +S1, +S2. absent: Murmur - GI/Abdominal Exam GI & Abdominal Exam: Soft, Normal Bowel Sounds. absent: Tenderness - Extremities Exam Extremities Exam: Full ROM, Normal Capillary Refill, Normal Inspection. absent: Joint Swelling, Pedal Edema - Back Exam Back Exam: NORMAL INSPECTION - Neurological Exam Neurological Exam: Alert, Awake, CN II-XII Intact, Normal Gait, Oriented x3 - Psychiatric Exam Psychiatric exam: Normal Affect, Normal Mood - Skin Skin Exam: Dry, Intact, Normal Color, Warm Assessment and Plan - Assessment and Plan (Free Text) Assessment: 43 M with a past medical history of epillepsy, schizoeffactive disorder, trauma tic brain injury, alcohol and drug (cocaine, heroin, benzodiazepene) dependency who had 2 episodes of coffee ground emesis overnight while on the psych unit. Will recheck potassium. Plan: UGIB - resolved -H/H is stable -no intervention as per GI; stable for transfer to psych unit from GI standpoint -advance diet, tolerating well -protonix PO 40mg -GI on consult, Dr. Foy Hyperkalemia -kayexalate, insulin and dextrose given yesterday -attempting to recheck K+ today, patient has difficult access Rhabdomyolysis - Continue with fluid hydration - patient has poor access - Monitor electrolytes and CPK Hx epilepsy - Continue depakote, tegretol , neurontin Hx Shizoaffective disorder -Continue valium, seroquel, trazodone -Psychiatry on consult Hx of Hypertension - Continue norvasc PPX -protonix -DVT ppx Patient seen and case discussed with attending, Dr. Forte <Marcello Forte - Last Filed: 01/10/19 15:23> Objective - Vital Signs/Intake and Output Vital Signs (last 24 hours): Temp Pulse Resp BP Pulse Ox 98.1 F 91 H 20 130/85 97 01/10/19 07:55 01/10/19 09:14 01/10/19 07:55 01/10/19 09:14 01/10/19 07:55 - Labs Labs: 01/10/19 05:30 01/10/19 05:30 PT 11.2 SECONDS (9.4-12.5) 01/06/19 11:15 INR 0.99 01/06/19 11:15 APTT 28.7 Seconds (26.9-38.3) 01/06/19 11:15 Attending/Attestation - Attestation I have personally seen and examined this patient.: Yes I have fully participated in the care of the patient.: Yes I have reviewed all pertinent clinical information, including history, physical exam and plan: Yes Notes (Text): 01/10/19 15:23 Medical record note made by the resident after discussion with my direction and input after the patient was personally seen and examined by me. I have reviewed the chart and agree that the record accurately reflects by personal performance of the history, physical exam, data review, and medical decision-making, in the course for the patient. I have also personally directed the plan of care.
[2019-01-08 15:54] LABS: BASO # 0.02 K/mm3 (0.0-2.0); BASO % 0.2 % (0.0-3.0); EOS # 0.5 (0.0-0.7); EOS % 5.7 % (1.5-5.0); HEMOGLOBIN 9.7 g/dL (14.0-18.0); LYMPH # 2.7 (1.2-3.4); MEAN CELL VOLUME 72.5 fl (80.0-105.0); MEAN CORPUSCULAR HEMOGLOBIN 22.5 pg (25.0-35.0); MEAN PLATELET VOLUME 9.6 fl (7.0-11.0); MONO % 10.5 % (1.0-6.0); RBC 4.32 10^6/uL (3.5-6.1); RED CELL DISTRIBUTION WIDTH 18.8 % (11.5-14.5); WHITE BLOOD COUNT 9.3 10^3/uL (4.5-11.0)
[2019-01-08 16:14] LABS: ALB/GLOB RATIO 1.1 (1.1-1.8); ALBUMIN 3.9 g/dL (3.0-4.8); ALT/SGPT 38 U/L (7-56); AST/SGOT 48 U/L (17-59); BLOOD UREA NITROGEN 23 mg/dL (7-21); CALCIUM 8.8 mg/dL (8.4-10.5); GFR NON-AFRICAN AMERICAN > 60
[2019-01-08 16:58] LABS: CK-MB 1.7 ng/mL (0.0-3.6)
--- NOTE | 2019-01-08 20:31 | CP.PCM.PCO ---
<Nicolle Pederson - Last Filed: 01/08/19 20:50> Addendum Addendum: 01/08/19 20:27 OVERNIGHT RESIDENT NOTE Nursing staff paged me in regards to this patient asking me to sign patient out against medical advice and asking me to "discharge" patient to VOLUNTARY psych unit. I informed nursing staff in extensive detail that the signout I received is that patient is not psychiatrically stable enough to sign out AMA and was not able to give consent to sign himself in to in-house VOLUNTARY psych unit. I spoke with the patient, he is tangential with thought process, he has multiple superficial cut churchill on both his arms and he demonstrates poor insight and judgement. According to psychiatric note, "As the patient does not sign involuntarily, he should absolutely be at [facility] [place] for involuntary committment. His impulses & motivations are unpredictable at this time." I informed nursing staff, in detail, about this note and reviewed it with them personally. Nursing staff insisting that patient can sign out AMA without a psychiatric hold, however patient does not demonstrate appropriate mental capacity to sign out AMA. We had a conversation with attending physician, Dr. Forte who also agreed that patient does not have mental capacity to sign out AMA and is pending involuntary committment at [facility] [facility]. Nursing staff informed me that they had tried to reach emergency psychiatric line. I will continue to reassess patient throughout the night, however patient cannot sign himself out and is pending involuntary committment at [facility]. <Abad Queen - Last Filed: 01/08/19 20:58> Attending/Attestation - Attestation I have personally seen and examined this patient.: No I have fully participated in the care of the patient.: No I have reviewed all pertinent clinical information: No
--- NOTE | 2019-01-08 20:51 | CP.PCM.PCO ---
<Nicolle Pederson - Last Filed: 01/08/19 20:51> Addendum Addendum: 01/08/19 20:51 OVERNIGHT RESIDENT NOTE Nicolle Pederson PGY1 We spoke with Dr. Forte, medical attending. Patient is stable from MEDICAL standpoint to be transferred to [facility] involuntary commitment psychiatric unit. <Abad Queen - Last Filed: 01/08/19 20:58> Attending/Attestation - Attestation I have personally seen and examined this patient.: No I have fully participated in the care of the patient.: No I have reviewed all pertinent clinical information: No
[2019-01-08] MEDS ORDERED: DiphenhydrAMINE 50 mg/ml Inj IM PRN (21:30)
[2019-01-08] MEDS ORDERED: DiphenhydrAMINE 50 mg/ml Inj IVP STA (22:01)
--- NOTE | 2019-01-08 22:04 | CP.PCM.PCO ---
<Kiana Pederson - Last Filed: 01/09/19 02:28> Addendum Addendum: 01/08/19 22:03 OVERNIGHT RESIDENT NOTE KIANA PEDERSON PGY1 Code villeda was called for combative patient. Pt has a history of multiple psychiatric disorders and is pending transfer to [facility] for involuntary committment. Pt has been combative towards nursing staff & security. yefri Nuñez orders were placed. Charge nurse able to calm patient down and administer medications. I will round throughout the night and reassess. <Abad Queen - Last Filed: 01/09/19 06:14> Attending/Attestation - Attestation I have personally seen and examined this patient.: No I have fully participated in the care of the patient.: No I have reviewed all pertinent clinical information: No
--- NOTE | 2019-01-08 23:04 | PN ---
DATE: 01/08/2019 SUBJECTIVE: The patient is 43 years old male who was initially admitted to the psychiatric inpatient unit, was transferred to the medical side for ruling out gastrointestinal bleed over the weekend. The patient had vomit with blood and needed to be transferred to the medical side. This blog writer has followed up on this patient and the patient appears to be overly sedated, snoring. The patient was not able to hold the interview. Discussed with nursing staff. The patient is currently on one-to-one observation and the patient has tendency of being agitated, but no physical aggression. Compliance with the medication, good. MEDICATIONS: This blog writer reviewed medications. The patient is on Tegretol 600 mg twice a day, Catapres 0.1 mg b.i.d., Valium 5 mg twice a day, Benadryl, Depakote 500 mg b.i.d., Colace, folic acid, Neurontin, multivitamins, Protonix, MiraLax, Seroquel 400 mg in the morning and at bedtime, sodium chloride, thiamine and trazodone. LABORATORY DATA: Labs reviewed. Most recent was from today. Microbiology reviewed. Reports reviewed. MENTAL STATUS EXAM: This blog writer was not able to assess mental status, but the patient has TBI. The patient was admitted on the psychiatric inpatient unit for depression as well as psychosis as well as suicidal ideation. Was transferred to the medical side for evaluation of gastrointestinal bleed. The patient vomited with blood. PLAN: We will continue current medication, current management. Most likely, the patient would require transfer back to the psychiatric inpatient unit. Physical therapy recommended, subacute rehab. This blog writer will follow up and advise accordingly. Thank you very much for letting me participate in the care of your patient. Melissa Rodriguez MD
[2019-01-09] MEDS: Sodium Chloride 0.9% 1,000 ML IV SCH ×3 (03:22→18:39)
[2019-01-09] MEDS: Pantoprazole 40 mg EC Tab PO SCH (05:25)
[2019-01-09] MEDS: Divalproex 250 mg DR (BID formulation) PO SCH ×2 (09:49→17:31)
[2019-01-09] MEDS: Multivitamin Therapeutic Tab PO SCH (09:49)
[2019-01-09] MEDS: POLYETHYLENE GLYCOL 3350 17 GM/Dose PACKET PO SCH ×2 (09:50→17:31)
--- NOTE | 2019-01-09 13:14 | PN ---
DATE: 01/09/2019 SUBJECTIVE: The patient was seen today on the medical side together with nurse manager quality compliance from the psychiatric inpatient unit, Mr. Orr. The patient presented to be emotional, started to cry right at the beginning of the interview. The patient said that he is a drug addict. He needs to have help. If he will not get help, he will be . The patient reported that he is willing to be signed into the psychiatric inpatient unit in order to continue improving. The patient presented to be emotional, very concrete thought process, childlike demeanor. The patient also has traumatic brain injury and the patient presented at times illogical and psychotic. Collateral information was obtained from the nursing staff. The patient was agitated during the nighttime. Wally Santos was called. The patient was on one-to-one observation on the medical side. PHYSICAL EXAMINATION: VITAL SIGNS: Reviewed. Temperature 98.8, pulse is 99, blood pressure 121/73, respiration 19, oxygen saturation is 97. MEDICATIONS: Reviewed. The patient is on Tegretol, Thorazine 50 mg as needed. The patient is on Catapres 0.1 mg twice a day schedule, Valium 5 mg twice a day schedule, Benadryl, Depakote 500 mg twice a day. The patient is on Colace 100 mg twice a day, folic acid 1 mg daily, Neurontin 300 mg three times a day, multivitamins, MiraLax, Seroquel 400 mg twice a day. The patient is on thiamine and trazodone 50 mg at the nighttime. LABS: Reviewed. Most recent was from yesterday. Coagulation reviewed. Blood gas reviewed. Chemistry reviewed. MENTAL STATUS EXAM: The patient presented to be alert. The patient remembered this publicity writer and remembered this publicity writer's specialty but does not remember this publicity writer's name. The patient is aware of the circumstances of his admission to the psychiatric inpatient unit and medical side. Mood described as, "I am depressed because I am a drug addict. I need to have help." This is the patient's statement. Affect was labile . Thought process, concrete. Thought content, the patient presented to be disorganized, at times irrational, majority of the time this is overnight. Insight and judgment seems to be limited but improving. Impulses are unpredictable. From the prospective of capacity to sign into the psychiatric inpatient unit, the patient has a capacity to do so. IMPRESSION: As per history, schizophrenia, traumatic brain injury. The patient was transferred on to medical side for upper gastrointestinal bleed which was stabilized and the patient is medically cleared. PLAN: The patient is willing to sign into the psychiatric inpatient unit. This publicity writer will continue current management and current medications. We will give trazodone at the nighttime with a plan to increase that further in order to avoid any agitation at the nighttime. The patient was willing to go to inpatient rehab for substance abuse. The patient also has unstable gait and high risk of falls, that is why physical therapy recommended subacute rehab. We will follow up with recommendations. sugar mill worker was requested to sign consent for treatment. We will see the patient in psychiatric inpatient unit. Thank you very much for letting me participate in care of your patient. Melissa Rodriguez MD
--- NOTE | 2019-01-09 14:47 | CP.PCM.DIS ---
<Jimbo Godinez - Last Filed: 01/09/19 14:48> Provider - Provider Date of Admission: 01/08/19 17:02 Attending physician: Marcello Forte MD Consults: 01/06/19 17:44 Gastroenterology Consult Routine Comment: Consulting Provider: Michele Foy Consulting Physician: Michele Foy Reason for Consult: coffee ground emesis and iron deficiency anemia 01/06/19 23:26 Inpatient WIRELESS TEAM MEMBER Core Measures Referral Routine Comment: Physician Instructions: Reason For Exam: EVALUATION Transition In Care/Readmission Reduction Routine Comment: Physician Instructions: Reason For Exam: EVALUATION 01/06/19 23:56 Consult [Physician Consult] Routine Comment: Consulting Provider: Gena Avila Consulting Physician: Gena Avila Reason for Consult: agitation Time Spent in preparation of Discharge (in minutes): 35 Hospital Course - Lab Results Lab Results: Most Recent Lab Values WBC 9.3 10^3/uL (4.5-11.0) D 01/08/19 15:28 RBC 4.32 10^6/uL (3.5-6.1) 01/08/19 15:28 Hgb 9.7 g/dL (14.0-18.0) L 01/08/19 15:28 Hct 31.3 % (42.0-52.0) L 01/08/19 15:28 MCV 72.5 fl (80.0-105.0) L 01/08/19 15:28 MCH 22.5 pg (25.0-35.0) L 01/08/19 15:28 MCHC 31.0 g/dl (31.0-37.0) 01/08/19 15:28 RDW 18.8 % (11.5-14.5) H 01/08/19 15:28 Plt Count 320 10^3/uL (120.0-450.0) 01/08/19 15:28 MPV 9.6 fl (7.0-11.0) 01/08/19 15:28 Neut % (Auto) 54.6 % (50.0-68.0) 01/08/19 15:28 Lymph % (Auto) 29.0 % (22.0-35.0) 01/08/19 15:28 Bee % (Auto) 10.5 % (1.0-6.0) H 01/08/19 15:28 Eos % (Auto) 5.7 % (1.5-5.0) H 01/08/19 15:28 Baso % (Auto) 0.2 % (0.0-3.0) 01/08/19 15: Lymph # (Auto) 2.7 (1.2-3.4) 01/08/19 15: Bee # (Auto) 1.0 (0.1-0.6) H 01/08/19 15: Eos # (Auto) 0.5 (0.0-0.7) 01/08/19 15: Baso # (Auto) 0.02 K/mm3 (0.0-2.0) 01/08/19 15: Absolute Neuts (auto) 5.09 (1.4-6.5) 01/08/19 15: PT 11.2 SECONDS (9.4-12.5) 01/06/19 11:15 INR 0.99 01/06/19 11:15 APTT 28.7 Seconds (26.9-38.3) 01/06/19 11:15 pCO2 44 mm/Hg (35-45) 01/08/19 12:06 pO2 68 mm/Hg (30-55) H 01/08/19 15:28 HCO3 29.9 mmol/L (21-28) H 01/08/19 12:06 ABG pH 7.44 (7.35-7.45) 01/08/19 12:06 ABG Total CO2 31.3 mmol.L (22-28) H 01/08/19 12:06 ABG O2 Saturation 99.3 % (95-98) H 01/08/19 12:06 ABG O2 Content 12.7 ML/dl (15-23) L 01/08/19 12:06 ABG Base Excess 5.2 mmol/L (-2.0-3.0) H 01/08/19 12:06 ABG Hemoglobin 9.2 g/dL (11.7-17.4) L 01/08/19 12:06 ABG Carboxyhemoglobin 1.8 % (0.5-1.5) H 01/08/19 12:06 POC ABG HHb (Measured) 0.7 % (0-5) 01/08/19 12:06 ABG Methemoglobin 0.9 % (0.0-3.0) 01/08/19 12:06 ABG O2 Capacity 12.8 mL/dl (16-24) L 01/08/19 12:06 VBG pH 7.42 (7.32-7.43) 01/08/19 15:28 VBG pCO2 47.0 (40-60) 01/08/19 15:28 VBG HCO3 30.5 mmol/l (21-28) H 01/08/19 15:28 VBG O2 Sat (Calc) 95.8 % (40-65) H 01/08/19 15: VBG Base Excess 5.1 mmol/L (0.0-2.0) H 01/08/19 15: Hgb O2 Saturation 96.6 % (95.0-98.0) 01/08/19 12:06 FiO2 21.0 % 01/08/19 12:06 Sodium 139 mmol/L (132-148) 01/08/19 15:28 Potassium 4.6 mmol/L (3.6-5.0) 01/08/19 15: Chloride 100 mmol/L (98-107) 01/08/19 15: Carbon Dioxide 29 mmol/L (21-33) 01/08/19 15:28 Anion Gap 15 (10-20) 01/08/19 15:28 BUN 23 mg/dL (7-21) H 01/08/19 15:28 Creatinine 1.2 mg/dl (0.8-1.5) 01/08/19 15:28 Est GFR ( Amer) > 60 01/08/19 15:28 Est GFR (Non-Af Amer) > 60 01/08/19 15:28 Random Glucose 80 mg/dL (70-110) 01/08/19 15:28 Calcium 8.8 mg/dL (8.4-10.5) 01/08/19 15:28 Magnesium 1.9 mg/dL (1.7-2.2) 01/06/19 11:15 Total Bilirubin 0.1 mg/dL (0.2-1.3) L 01/08/19 15:28 AST 48 U/L (17-59) 01/08/19 15:28 ALT 38 U/L (7-56) 01/08/19 15:28 Alkaline Phosphatase 119 U/L (38-126) 01/08/19 15:28 Total Creatine Kinase 642 U/L (35-230) H 01/08/19 15:28 CK-MB (CK-2) 1.7 ng/mL (0.0-3.6) 01/08/19 15:28 CK-MB (CK-2) % Cancelled 01/07/19 05:45 Total Protein 7.3 g/dL (5.8-8.3) 01/08/19 15:28 Albumin 3.9 g/dL (3.0-4.8) 01/08/19 15:28 Globulin 3.4 gm/dL 01/08/19 15:28 Albumin/Globulin Ratio 1.1 (1.1-1.8) 01/08/19 15:28 Lipase 35 U/L (23-300) 01/06/19 11:15 Blood Type O POSITIVE 01/06/19 11:15 Blood Type Confirm O POSITIVE 01/06/19 16:00 Antibody Screen Negative 01/06/19 11:15 BBK History Checked No verified bt 01/06/19 11:15 - Constitutional Appears: Well - Head Exam Head Exam: ATRAUMATIC, NORMAL INSPECTION, NORMOCEPHALIC - Eye Exam Eye Exam: EOMI, Normal appearance, PERRL Pupil Exam: NORMAL ACCOMODATION, PERRL - ENT Exam ENT Exam: Mucous Membranes Moist, Normal Exam - Neck Exam Neck Exam: Full ROM, Normal Inspection. absent: Lymphadenopathy - Respiratory Exam Respiratory Exam: Clear to Ausculation Bilateral, NORMAL BREATHING PATTERN - Cardiovascular Exam Cardiovascular Exam: REGULAR RHYTHM, +S1, +S2. absent: Murmur - GI/Abdominal Exam GI & Abdominal Exam: Soft, Normal Bowel Sounds. absent: Tenderness - Extremities Exam Extremities Exam: Full ROM, Normal Capillary Refill, Normal Inspection. absent: Joint Swelling, Pedal Edema - Back Exam Back Exam: NORMAL INSPECTION - Neurological Exam Neurological Exam: Alert, Awake, CN II-XII Intact, Normal Gait, Oriented x3 - Skin Skin Exam: Dry, Intact, Normal Color, Warm - Hospital Course Hospital Course: Upon admission, 43 M with a past medical history of epillepsy, schizoeffactive disorder, traumatic brain injury, alcohol and drug (cocaine, heroin, benzodiazepene) dependency who initially presented to [facility] [place] due to suicide attempt. At time of that admission patient was noted to be anemic due to iron deficiency. Overnight as per nursing staff patient had two episodes of coffee ground emesis and was also combative whih required sedation with geodon, ativan and thorazine. Patient was evaluated today however due to sedative effects from medication, history was poor. Patient states he at times feels weak and fatigued, stating that these symptoms come and go from time to time. He states he has not noticed any bloody bowel movements but at the same time has not been checking. ROS limited due to current mentation. During hospital course, patient's H/H was stable and he was started on protonix. All of his psych medications were continued. Patient was started on IVF due to concern for rhabdomyolysis. Patient had several code carrizales's during hospital stay due to agitation and anger. Patient was given kayexalate for hyperkalemeia with potassium level normalizing. Patient continued on miralax for constipation. Patient's diet was advanced without incident. GI was on consult and recommended no intervention at this time. Patient is medically cleared today for inpatient psych. All of patient's questions were answered to satisfaction. Discharge Plan - Discharge Medications Prescriptions: carBAMazepine [Tegretol] 600 mg PO BID #30 tab diaZEpam [Valium] 5 mg PO BID #30 tab Divalproex [Depakote ER] 500 mg PO BID #30 ter Docusate Sodium [Colace] 100 mg PO BID #30 capsule Pantoprazole Sodium [Protonix] 40 mg PO DAILY #30 ect QUEtiapine [SEROquel] 400 mg PO AMHS #30 tab traZODone [Desyrel] 50 mg PO HS #14 tab - Follow Up Plan Condition: GUARDED Disposition: HOME/ ROUTINE Instructions: Gastrointestinal Bleeding (DC) Additional Instructions: Patient being discharged Home Please continue all current medications. Please continue protonix and miralax. Please continue psych medications as per psychiatrist. Please obtain refills for your medications and obtain follow up psych visit from your psychiatrist. As per your request, a referral for the [facility] at [facility] has been provided to you so that you are able to make an appointment at your convenience. Please return to the ED for any new or worsening symptoms. Please stop drinking alcohol and using drugs as per our discussion. Referrals: [facility] at [facility] [place] [Outside] Melissa Rodriguez MD [Staff Provider] - <Marcello Forte - Last Filed: 01/10/19 15:23> Provider - Provider Date of Admission: 01/08/19 17:02 Attending physician: Marcello Forte MD Consults: 01/06/19 17:44 Gastroenterology Consult Routine Comment: Consulting Provider: Michele Foy Consulting Physician: Michele Foy Reason for Consult: coffee ground emesis and iron deficiency anemia 01/06/19 23:26 Inpatient WIRELESS TEAM MEMBER Core Measures Referral Routine Comment: Physician Instructions: Reason For Exam: EVALUATION Transition In Care/Readmission Reduction Routine Comment: Physician Instructions: Reason For Exam: EVALUATION 01/06/19 23:56 Consult [Physician Consult] Routine Comment: Consulting Provider: Gena Avila Consulting Physician: Gena Avila Reason for Consult: agitation Hospital Course - Lab Results Lab Results: Most Recent Lab Values WBC 9.5 10^3/uL (4.5-11.0) 01/10/19 05:30 RBC 4.47 10^6/uL (3.5-6.1) 01/10/19 05:30 Hgb 10.0 g/dL (14.0-18.0) L 01/10/19 05:30 Hct 32.5 % (42.0-52.0) L 01/10/19 05:30 MCV 72.7 fl (80.0-105.0) L 01/10/19 05:30 MCH 22.4 pg (25.0-35.0) L 01/10/19 05:30 MCHC 30.8 g/dl (31.0-37.0) L 01/10/19 05:30 RDW 19.0 % (11.5-14.5) H 01/10/19 05:30 Plt Count 386 10^3/uL (120.0-450.0) 01/10/19 05:30 MPV 9.6 fl (7.0-11.0) 01/10/19 05:30 Neut % (Auto) 59.5 % (50.0-68.0) 01/10/19 05:30 Lymph % (Auto) 27.3 % (22.0-35.0) 01/10/19 05:30 Bee % (Auto) 6.8 % (1.0-6.0) H 01/10/19 05:30 Eos % (Auto) 6.1 % (1.5-5.0) H 01/10/19 05:30 Baso % (Auto) 0.3 % (0.0-3.0) 01/10/19 05:30 Lymph # (Auto) 2.6 (1.2-3.4) 01/10/19 05:30 Bee # (Auto) 0.7 (0.1-0.6) H 01/10/19 05:30 Eos # (Auto) 0.6 (0.0-0.7) 01/10/19 05:30 Baso # (Auto) 0.03 K/mm3 (0.0-2.0) 01/10/19 05:30 Absolute Neuts (auto) 5.65 (1.4-6.5) 01/10/19 05:30 PT 11.2 SECONDS (9.4-12.5) 01/06/19 11:15 INR 0.99 01/06/19 11:15 APTT 28.7 Seconds (26.9-38.3) 01/06/19 11:15 pCO2 44 mm/Hg (35-45) 01/08/19 12:06 pO2 68 mm/Hg (30-55) H 01/08/19 15:28 HCO3 29.9 mmol/L (21-28) H 01/08/19 12:06 ABG pH 7.44 (7.35-7.45) 01/08/19 12:06 ABG Total CO2 31.3 mmol.L (22-28) H 01/08/19 12:06 ABG O2 Saturation 99.3 % (95-98) H 01/08/19 12:06 ABG O2 Content 12.7 ML/dl (15-23) L 01/08/19 12:06 ABG Base Excess 5.2 mmol/L (-2.0-3.0) H 01/08/19 12:06 ABG Hemoglobin 9.2 g/dL (11.7-17.4) L 01/08/19 12:06 ABG Carboxyhemoglobin 1.8 % (0.5-1.5) H 01/08/19 12:06 POC ABG HHb (Measured) 0.7 % (0-5) 01/08/19 12:06 ABG Methemoglobin 0.9 % (0.0-3.0) 01/08/19 12:06 ABG O2 Capacity 12.8 mL/dl (16-24) L 01/08/19 12:06 VBG pH 7.42 (7.32-7.43) 01/08/19 15:28 VBG pCO2 47.0 (40-60) 01/08/19 15:28 VBG HCO3 30.5 mmol/l (21-28) H 01/08/19 15:28 VBG O2 Sat (Calc) 95.8 % (40-65) H 01/08/19 15:28 VBG Base Excess 5.1 mmol/L (0.0-2.0) H 01/08/19 15:28 Hgb O2 Saturation 96.6 % (95.0-98.0) 01/08/19 12:06 FiO2 21.0 % 01/08/19 12:06 Sodium 139 mmol/L (132-148) 01/10/19 05:30 Potassium 5.0 mmol/L (3.6-5.0) 01/10/19 05:30 Chloride 101 mmol/L (98-107) 01/10/19 05:30 Carbon Dioxide 29 mmol/L (21-33) 01/10/19 05:30 Anion Gap 14 (10-20) 01/10/19 05:30 BUN 25 mg/dL (7-21) H 01/10/19 05:30 Creatinine 1.1 mg/dl (0.8-1.5) 01/10/19 05:30 Est GFR ( Amer) > 60 01/10/19 05:30 Est GFR (Non-Af Amer) > 60 01/10/19 05:30 Random Glucose 98 mg/dL (70-110) 01/10/19 05:30 Calcium 9.2 mg/dL (8.4-10.5) 01/10/19 05:30 Magnesium 1.9 mg/dL (1.7-2.2) 01/06/19 11:15 Total Bilirubin 0.1 mg/dL (0.2-1.3) L 01/10/19 05:30 AST 47 U/L (17-59) 01/10/19 05:30 ALT 34 U/L (7-56) 01/10/19 05:30 Alkaline Phosphatase 138 U/L (38-126) H 01/10/19 05:30 Total Creatine Kinase 642 U/L (35-230) H 01/08/19 15:28 CK-MB (CK-2) 1.7 ng/mL (0.0-3.6) 01/08/19 15:28 CK-MB (CK-2) % Cancelled 01/07/19 05:45 Total Protein 7.8 g/dL (5.8-8.3) 01/10/19 05:30 Albumin 4.3 g/dL (3.0-4.8) 01/10/19 05:30 Globulin 3.6 gm/dL 01/10/19 05:30 Albumin/Globulin Ratio 1.2 (1.1-1.8) 01/10/19 05:30 Lipase 35 U/L (23-300) 01/06/19 11:15 Blood Type O POSITIVE 01/06/19 11:15 Blood Type Confirm O POSITIVE 01/06/19 16:00 Antibody Screen Negative 01/06/19 11:15 BBK History Checked No verified bt 01/06/19 11:15 Attending/Attestation - Attestation I have personally seen and examined this patient.: Yes I have fully participated in the care of the patient.: Yes I have reviewed all pertinent clinical information, including history, physical exam and plan: Yes Notes (Text): 01/10/19 15:18 Medical record note made by the resident after discussion with my direction and input after the patient was personally seen and examined by me. I have reviewed the chart and agree that the record accurately reflects by personal performance of the history, physical exam, data review, and medical decision-making, in the course for the patient. I have also personally directed the plan of care. 43 year old male with past medical history of schizoaffective disorder, seizure disorder, traumatic brain injury and alcohol/substance abuse who was transerred from psychiatric unit after 2 episodes of questionable coffee ground emesis . Labs significant for microcytic iron deficiency anemia and mild rhabdomyolysis. CT abd/pelvis showed constipation. Patient was started on PPI and IV fluid.Hemoglobin remain stable at his base line. He was evaluated by GI.His diet was gradually advanced.His CK level is improved.Hyperkalemia is resolved.His constipation has improved. Psychiatry has cleared patient . He will be discharged home and will follow up with PCP and Psychiatry. Issue of compliance with medication was discussed. Medication to bed were refused by patient.He wanted to go to his own Pharmacy. Prognosis is guarded.
[2019-01-09 17:27] VITALS: RESP 20
[2019-01-10] MEDS: Pantoprazole 40 mg EC Tab PO SCH (05:08)
[2019-01-10 06:21] LABS: BASO # 0.03 K/mm3 (0.0-2.0); BASO % 0.3 % (0.0-3.0); EOS # 0.6 (0.0-0.7); EOS % 6.1 % (1.5-5.0); LYMPH # 2.6 (1.2-3.4); LYMPH % 27.3 % (22.0-35.0); MEAN CELL VOLUME 72.7 fl (80.0-105.0); MEAN CORPUSCULAR HEMOGLOBIN 22.4 pg (25.0-35.0); MEAN CORPUSCULAR HGB CONC 30.8 g/dl (31.0-37.0); MEAN PLATELET VOLUME 9.6 fl (7.0-11.0); MONO # 0.7 (0.1-0.6); MONO % 6.8 % (1.0-6.0); RBC 4.47 10^6/uL (3.5-6.1); WHITE BLOOD COUNT 9.5 10^3/uL (4.5-11.0)
[2019-01-10 06:42] LABS: ALB/GLOB RATIO 1.2 (1.1-1.8); ALBUMIN 4.3 g/dL (3.0-4.8); ALT/SGPT 34 U/L (7-56); AST/SGOT 47 U/L (17-59); BLOOD UREA NITROGEN 25 mg/dL (7-21); CALCIUM 9.2 mg/dL (8.4-10.5); GFR NON-AFRICAN AMERICAN > 60
[2019-01-10 07:56] VITALS: BP 130/85; PULSE 91; TEMP 98.1; O2SAT 97
[2019-01-10] MEDS: Divalproex 250 mg DR (BID formulation) PO SCH (09:15)
[2019-01-10] MEDS: POLYETHYLENE GLYCOL 3350 17 GM/Dose PACKET PO SCH (09:16)
[2019-01-10] MEDS: Sodium Chloride 0.9% 1,000 ML IV SCH (09:17)
[2019-01-10] MEDS: Multivitamin Therapeutic Tab PO SCH (09:18)
--- NOTE | 2019-01-10 22:24 | PN ---
DATE: 01/10/2019 SUBJECTIVE: The patient was seen today. The patient changed his mind and does not want to admit himself to the psychiatric inpatient unit. The patient presented very well. This is the best presentation for this patient for the past few years. The patient was alert and oriented. The patient has some cognitive limitations but the patient was appreciative The patient felt that at the present moment, he does not feel that he needs to stay in the hospital any longer. The patient denied that he has any thoughts of harming himself or others. The patient reported that he will stay sober and not use any opioids any longer. The patient requested a prescription for all of his medical as well as psychiatric issues discussed with the medical team. The patient does not present to be in acute distress, and the patient was medically cleared. VITAL SIGNS: Reviewed. LABS: Reviewed. MEDICATIONS: Reviewed. MENTAL STATUS EXAM: The patient appears to be alert and oriented, somewhat pleasant and cooperative, socially appropriate. The patient was not aggressive or agitated. Mood described as okay. Affect was constricted. Thought process concrete. Thought content, the patient denied visual, auditory, tactile hallucinations. Denied paranoid ideation. The patient denied thoughts of harming himself or others, denied intent or plan. Insight and judgment seems to be improving. Impulses are well controlled. IMPRESSION: The patient has history of schizophrenia, also traumatic brain injury. PLAN: This commercial underwriter provided the patient with prescriptions to continue on all of his psychotropic medications two-week supply the patient will be continued on Tegretol for seizures. The patient also will be on Valium 5 mg twice a day as per neurology team, Depakote 500 mg twice a day. The patient also is on Neurontin 300 mg three times a day. The patient is on Protonix, Seroquel 400 mg twice a day a.m. and at bedtime, trazodone 50 mg at nighttime. The patient posed no imminent danger to self or others. Has followup appointment with neurologist. Should you have any questions, give me a call back. At the moment of discharge, the patient posed no imminent danger to self or others. Melissa Abduakhadov, MD [facility] # [phone]
== END 2019-01-10 13:22 | disposition home or self-care (01) | DRG 552 ==
LOC: ED 10:40 → ERH 16:00 → 3RNO 17:30 → OBSVTOIN 01-08 17:02
PROVIDERS: ADMIT Internal Medicine; ATTEND Internal Medicine
DX: K92.2 Gastrointestinal hemorrhage, unspecified (principal); M62.82 Rhabdomyolysis; E87.5 Hyperkalemia; F10.239 Alcohol dependence with withdrawal, unspecified; F11.23 Opioid dependence with withdrawal; F25.9 Schizoaffective disorder, unspecified; F14.90 Cocaine use, unspecified, uncomplicated; K29.70 Gastritis, unspecified, without bleeding; D50.9 Iron deficiency anemia, unspecified; F10.229 Alcohol dependence with intoxication, unspecified; F31.9 Bipolar disorder, unspecified; G40.909 Epilepsy, unspecified, not intractable, without status epilepticus; I10 Essential (primary) hypertension; K59.00 Constipation, unspecified; R45.851 Suicidal ideations; Z72.0 Tobacco use; Z87.820 Personal history of traumatic brain injury; Z91.19 Patient's noncompliance with other medical treatment and regimen; Z88.9 Allergy status to unspecified drugs, medicaments and biological substances; Z93.3 Colostomy status